=== PATIENT | female | born 1945 | race Caucasian/White ===

== ENCOUNTER 2020-01-04 13:15 | Outpatient (RCR) | payer MEDICARE, SELFPAY ==
--- NOTE | 2019-11-25 10:59 | PTOPEVAL ---
Thank you for referring this patient to [facility]. Please review, sign, date and return this plan of care KEVIN. Pt seen for initial evaluation this day due to muscle weakness and abnormal movement. She would benefit from additional skilled therapy 2x/wk x 6 wk to address noted impairments, provide skilled teaching for HEP and caregiver training. I agree with and certify that the following plan of care is medically necessary. Referring Physician Date Attending Provider: Robert Cruz MD Referring Provider: *PT Outpatient Evaluation Start: 11/25/19 09:39 Freq: Status: Active Protocol: Document 11/25/19 09:36 CAP (Rec: 11/25/19 10:37 CAP [id number]) Therapy Assessment Status Assessment Status Assessment Status Evaluation Outpatient Past Medical History Cardiovascular History Hx Other Cardiac Disorders Yes: Corotid stenosis Respiratory History Hx Bronchitis Yes Hx Pneumonia Yes Musculoskeletal History Hx Other Musculoskeletal Disorders Yes: psychogenic movement disorder Evaluation Information Problem Diagnosis weakness and abnormal movement Onset 07/06/19 Cause unknown. Additional Evaluation Detail She is not performing home exercise program due to limited tolerance with activities, decreased trunk balance. Subjective Information Jul 07 left for a trip. Pt Query Text:As Reported By Patient/ had not been feeling right Family She was vomitting. Went to Urgent Care with Dx with vertigo, then sent her to ED for treatment. She was given to be DC with antibioditic, but had a change in status of decreased responsiveness. She was in acute hospital due to change in medical status with decreased trunk control and ability to sit or stand. She was then taken [facility] for work -up. She became dependent with all activities. In [facility] for 10 day, unable to locate cause of change in medical status with multiple testing. Sent to SNF for therapy. She was then sent to [place] due to kidney infection and had change in status with repeated
--- NOTE | 2019-12-13 12:02 | PCPTNOTE ---
Patient called & cancelled scheduled appointment this date due to weather.
--- NOTE | 2019-12-21 16:06 | PTOPEVAL ---
Thank you for referring this patient to [facility]. Please review, sign, date and return this plan of care KEVIN. Pt has been seen for 7 physical therapy visits to address functional mobility impairment, muscle weakness and increased assistance with mobility and decreased safety with mobility. She demonstrates progress towards therapy goals and improved functional mobility. She requires additional skilled therapy to address impairments and improve function. Cont PT 2x/wk x 6 wk. I agree with and certify that the following plan of care is medically necessary. Referring Physician Date Attending Provider: Robert Cruz MD Referring Provider: *PT Outpatient Re-Evaluation Start: 11/25/19 09:39 Freq: Status: Active Protocol: Document 12/21/19 12:32 CAP (Rec: 12/21/19 13:28 CAP [id number]) Therapy Assessment Status Assessment Status Assessment Status Re-evaluation Outpatient Past Medical History Hx Other Musculoskeletal Disorders Yes: psychogenic movement disorder Evaluation Information Problem Diagnosis weakness and abnormal movement Onset 07/06/19 Cause unknown. Additional Evaluation Detail Jul 07 left for a trip. Pt had not been feeling right She was vomitting. Went to Urgent Care with Dx with vertigo, then sent her to ED for treatment. She was given to be DC with antibioditic, but had a change in status of decreased responsiveness. She was in acute hospital due to change in medical status with decreased trunk control and ability to sit or stand. She was then taken [facility] for work -up. She became dependent with all activities. In [facility] for 10 day, unable to locate cause of change in medical status with multiple testing. Sent to SNF for therapy. She was then sent to [place] due to kidney infection and had change in status with repeated trunk motion without cause. She cont to have a decline in functional status. Unknown cause for abnormal trunk motions with extensive testing . Pt was to be
--- NOTE | 2020-01-06 10:38 | PCPTNOTE ---
Patient called & cancelled scheduled appointment this date due to Covid 19.
--- NOTE | 2020-01-11 09:47 | PCPTNOTE ---
Patient did not show up for scheduled appointment this date.
--- NOTE | 2020-01-11 09:56 | PCPTNOTE ---
Called & had to leave a message.
--- NOTE | 2020-01-18 14:54 | PCPTNOTE ---
Patient called & cancelled scheduled appointment this date due to covid 19
--- NOTE | 2020-02-21 08:10 | PCPTNOTE ---
Admitting Provider: Attending Provider: Robert Cruz MD Patient:Sonia Quintanilla Date of :1945 Discharge Note Patient has not returned for any further treatments since 01/04/2020, therefore she will be discharged at this time. Patient?s initial visit was on 11/25/2019 09:30 and she had a total of 8 visits. Limited progress with therapy for functional mobility and compliance with a HEP or mobility activities at home. The goals have been not met. Thank you for referring this patient to [facility]. Please review, sign, date and return this discharge summary KEVIN. I have been updated about the patient's current status and I agree with discharge from the above service at this time. Referring Physician Date
== END 2020-02-21 08:44 | disposition home or self-care (01) ==
LOC: ANHPT 13:15
PROVIDERS: PCP Family Medicine; Visit Provider Family Medicine
DX: R53.1 Weakness (principal); G25.9 Extrapyramidal and movement disorder, unspecified
CPT/HCPCS: 97110; 97116; 97163; 97530

== ENCOUNTER 2020-06-29 09:28 | Outpatient (CLI) | payer MEDICARE, SELFPAY ==
--- NOTE | ~2020-06-29 | MM_ITS ---
EXAMINATION: MM screening jodie BI w paola HISTORY: Screening TECHNIQUE: Craniocaudal and mediolateral oblique 3-D tomosynthesis images were obtained and synthetic 2-D images were generated. CAD analysis was submitted and interpreted. COMPARISON: Comparison to multiple prior studies sequentially, with oldest reviewed study dated 01/09. BREAST PARENCHYMAL COMPOSITION: There are scattered areas of fibroglandular density. FINDINGS: Focal asymmetry in the upper outer quadrant of the right breast is unchanged. There are no new masses, calcifications or architectural distortion in the right breast to suggest malignancy. The re are focal asymmetries medially in the left breast which appear new. IMPRESSION: 1. Focal left breast asymmetries medially on CC view. 2. Additional mammographic views and possible breast ultrasound are recommended. BI-RADS Category 0: Incomplete: Needs additional imaging evaluation. Reviewed, dictated and finalized at location A. IMPRESSION: 1. Focal left breast asymmetries medially on CC view. 2. Additional mammographic views and possible breast ultrasound are recommended . BI-RADS Category 0: Incomplete: Needs additional imaging evaluation.
== END 2020-06-29 09:29 | disposition home or self-care (01) ==
LOC: ANHIMG 09:30
PROVIDERS: PCP Family Medicine; Visit Provider Family Medicine
DX: Z12.31 Encounter for screening mammogram for malignant neoplasm of breast (principal); R92.8 Other abnormal and inconclusive findings on diagnostic imaging of breast
CPT/HCPCS: 77063; 77067

== ENCOUNTER 2020-07-20 12:12 | Outpatient (CLI) | payer MEDICARE, SELFPAY ==
--- NOTE | ~2020-07-20 | MM_ITS ---
EXAMINATION: MM diagnostic mammo unilat LT HISTORY: Left breast asymmetry on screening mammogram TECHNIQUE: Additional 3-D tomosynthesis images of the left breast were performed and synthetic 2-D im ages were generated. CAD analysis was submitted and interpreted. COMPARISON: 06/29/2020, 01/25/2010, 01/09/2010 FINDINGS: No persistent asymmetry is identified with spot compression of the left breast. There is a return to baseline fibroglandular appearance. IMPRESSION: 1. No mammographic evidence of malignancy. 2. Recommend routine screening mammography in one year. BI-RADS Category 1: Negative Reviewed, dictated and finalized at location A.
== END 2020-07-20 12:13 | disposition home or self-care (01) ==
LOC: ANHIMG 12:14
PROVIDERS: PCP Family Medicine; Visit Provider Family Medicine
DX: R92.8 Other abnormal and inconclusive findings on diagnostic imaging of breast (principal)
CPT/HCPCS: 77065

== ENCOUNTER 2025-01-05 09:07 | Emergency (ER) | payer MEDICARE, SELFPAY ==
--- NOTE | ~2025-01-05 | XR_ITS ---
XR chest 2V Ordering provider: DIANE Navarro History: 79 years Female with . cough x3 days. Rhonchi throughout, sob . Comparison: None. FINDINGS: MEDIASTINUM: The cardiac silhouette is slightly enlarged. Bipolar pacemaker. Aortic valve prosthesis is noted. Congestive gladys. LUNGS: No effusions or pneumothorax. Prominent bronchovascular markings in the lower lobes more on th e left side is seen. Early pneumonia is not excluded. Minimal interstitial thickening in the right lung base. OTHER: No free air under the diaphragm. Degenerative changes of the spine. IMPRESSION: Cardiomegaly with congestive gladys. Prominent markings in the left lower lobe with possible early pneumonia. Follow-up advised. Underlyin g pulmonary edema cannot be excluded. Reviewed, dictated and finalized at location A. IMPRESSION: Cardiomegaly with congestive gladys. Prominent markings in the left lower lobe with possible early pneumonia. Follow -up advised. Underlying pulmonary edema cannot be excluded.
[2025-01-05 09:21] VITALS: BP 151/62; PULSE 88; RESP 18; TEMP 37.6; O2SAT 97
[2025-01-05 09:58] VITALS: PULSE 88; RESP 18; O2SAT 97
--- NOTE | 2025-01-05 10:17 | ED.URI ---
HPI - URI/Sore Throat General Chief Complaint: Upper Respiratory Infection Stated Complaint: Cough Time Seen by Provider: 01/05/25 10:10 Source: patient, family (Daughter) and RN notes reviewed Mode of arrival: ambulatory Limitations: no limitations History of Present Illness HPI Narrative: Patient presents today with daughter, complaining a 3 day history of cough, chest wall pain and tightness, sore throat, headache, shortness of breath. She also complains of a subjective fever yesterday. She has been taking Mucinex without much relief. She was exposed to strep throat 2 weeks ago and to URI symptoms in her home recently. History of bronchitis with pneumonia. Daughter states the patient was admitted to the ICU last year for pneumonia for 3 weeks. Related Data Home Medications ?Medication ?Instructions ?Recorded ?Confirmed ?Last Taken ?Type Saccharomyces boulardii 250 mg 250 mg PO BID 09/24/19 06/15/21 Unknown History capsule (Florastor) acetaminophen 325 mg tablet 325 mg PO Q6H PRN 09/24/19 06/15/21 Unknown History aspirin 81 mg tablet,delayed 81 mg PO DAILY 09/24/19 06/15/21 10/17/19 History release carvedilol 3.125 mg tablet 3.125 mg PO Q12H 09/24/19 06/15/21 Unknown History cholecalciferol (vitamin D3) 25 1,000 unit PO DAILY 09/24/19 06/15/21 Unknown History mcg (1,000 unit) capsule melatonin 1 mg tablet PO 09/24/19 06/15/21 Unknown History magnesium oxide 500 mg PO DAILY 02/15/20 06/15/21 Unknown History omeprazole 40 mg capsule,delayed 40 mg PO BID 06/15/21 06/15/21 Unknown History release levothyroxine 75 mcg tablet mcg 01/05/25 Unknown History pravastatin 40 mg tablet mg 01/05/25 Unknown History valsartan 40 mg tablet mg 01/05/25 Unknown History Allergies Allergy/AdvReac Type Severity Reaction Status Date / Time ELVIN Inhibitors Allergy Unknown Cough Verified 01/05/25 09:51 lisinopril AdvReac Unknown COUGHING Verified 01/05/25 09:51 Review of Systems Review of Systems: CONSTITUTIONAL: Denies body aches, chills, or sweats.+ subjective fever EYES: Denies visual changes, redness, or discharge. ENT: Denies rhinorrhea, congestion, or otalgia.+ sore throat CARDIOVASCULAR: Denies chest pain, palpitations, or edema. RESPIRATORY: Cough, shortness of breath, chest wall pain GASTROINTESTINAL: Denies abdominal pain, nausea, vomiting, or diarrhea. GENITOURINARY: Denies dysuria or hematuria. SKIN: Denies rash, itching, or wounds. MUSCULOSKELETAL: Denies back pain, joint pain, or myalgia. NEUROLOGIC: Denies numbness, tingling, or weakness.+ headache PSYCH: Denies depression or anxiety. [facility] Past Medical History Medical History Impaired fasting glucose Fatty liver Hx of gout Arthritis Pyelonephritis Pyelitis Hx: UTI (urinary tract infection) Ulcer History of pneumonia H/O: HTN (hypertension) Hypercholesteremia Carotid stenosis Early cataracts, bilateral Aortic stenosis Bronchitis Psychogenic movement disorder Gout Hypothyroidism HLD (hyperlipidemia) HTN (hypertension), benign Surgical History Surgical History History of hysterectomy History of tonsillectomy History of ear surgery x6 Status post hysterectomy with oophorectomy Family History Family History Father Brain cancer Social History Social History Smoking status: Never smoker Second hand tobacco smoke exposure: Yes Alcohol intake: never Substance use: never Substance use type: does not use Living arrangements: with family Occupation/Education: retired Gender identity (if verbalized by the patient): Female Comments At time of signature, I have reviewed and agree with nursing past medical, surgical, social and family history unless otherwise noted. Please see nursing chart for further information. There is no relevant family history pertinent to the presenting complaint Exam Narrative: GENERAL: Ill-appearing, well-nourished, and in no acute distress. HEAD: Normocephalic, atraumatic. EYES: EOMI. No redness or drainage. Conjunctivae normal. ENT: Mucous membranes pink and moist. Nares clear. No rhinorrhea. TMs normal bilaterally. Throat normal. Uvula midline. Hard of hearing NECK: Normal AROM. Supple. No lymphadenopathy. CHEST: No respiratory distress. Expiratory rhonchi throughout. Harsh cough noted. HEART: Regular rate and rhythm. No murmur appreciated. EXTREMITIES: Normal range of motion. No edema. SKIN: Warm, dry, no rash. Capillary refill normal. Normal skin turgor. NEURO: No focal deficits. Alert and oriented x3. Gait steady. PSYCH: Normal affect. No signs of depression or anxiety. Course Course Level of Care: Express Care Visit Vital Signs Vital signs: Vital Signs Temperature 99.7 F H 01/05/25 09:21 Pulse Rate 88 01/05/25 09:21 Respiratory Rate 18 01/05/25 09:21 Blood Pressure 151/62 H 01/05/25 09:21 Pulse Oximetry 97 01/05/25 09:21 Oxygen Delivery Room Air 01/05/25 09:21 Temperature 99.7 F H 01/05/25 09:21 Pulse Rate 88 01/05/25 09:58 Respiratory Rate 18 01/05/25 09:58 Blood Pressure 151/62 H 01/05/25 09:21 Pulse Oximetry 97 01/05/25 09:58 Oxygen Delivery Room Air 01/05/25 09:21 Reviewed MDM - URI/Sore Throat MDM Narrative Medical decision making narrative: Rapid strep negative. X-ray shows early pneumonia in the left lower lobe. Will treat with Augmentin and azithromycin. Strict ED precautions given. Anticipatory guidance given. Differential Diagnosis Differential diagnosis: Likely upper respiratory infection, viral infection, bronchitis, pharyngitis and other (Strep throat, pneumonia) Lab Data Attestation: I reviewed the patient's lab results. Lab results narrative: Rapid strep negative Labs: Lab Results 01/05/25 Range/Units 10:23 POC Grp A Strep Screen Negative (Negative) Critical Care Time Critical Care Time Critical Care Time: No Discharge Plan Discharge Clinical Impression: Pneumonia Qualifiers: Pneumonia type: due to unspecified organism Laterality: left Lung location: lower lobe of lung Qualified Code(s): J18.9 - Pneumonia, unspecified organism Patient Disposition: Home, Self-Care Condition: Stable Instructions: Antibiotic Form, Bacterial Pneumonia (DC) Additional Instructions: Your x-ray shows early pneumonia in the left lower lung area. Please take antibiotics as prescribed. Continue the Mucinex to help break up chest congestion. As discussed, if symptoms are not improving in the next 24-48 hours, please go to the ER immediately for further evaluation and treatment. Your blood pressure was elevated above 120/80 today at Urgent Care. This puts you above the threshold for follow up. Please schedule a followup visit with your personal physician as soon as possible, for further evaluation and treatment. Even blood pressure exceeding 120/80 may indicate pre-hypertension. Patient Language: Tajik Prescriptions: New azithromycin 250 mg tablet 250 mg PO DAILY Qty: 6 0RF Rx Instructions: take 500 mg today (day 1), then 250 mg daily on days 2-5. amoxicillin-pot clavulanate 875-125 mg tablet 1 tablet PO Q12H 5 Days Qty: 10 0RF No Action pravastatin 40 mg tablet levothyroxine 75 mcg tablet valsartan 40 mg tablet acetaminophen 325 mg tablet 325 mg PO Q6H PRN aspirin 81 mg tablet,delayed release (DR/EC) 81 mg PO DAILY carvedilol 3.125 mg tablet 3.125 mg PO Q12H Florastor 250 mg capsule 250 mg PO BID melatonin 1 mg tablet PO cholecalciferol (vitamin D3) 1,000 unit capsule 1,000 unit PO DAILY omeprazole 40 mg capsule,delayed release(DR/EC) 40 mg PO BID magnesium oxide 500 mg tablet 500 mg PO DAILY venlafaxine 37.5 mg tablet See Rx Instructions .ROUTE .COMPLEX Qty: 180 0RF Dose Instruction: TAKE 2 TABLETS BY MOUTH EVERY DAY Rx Instructions: TAKE 2 TABLETS BY MOUTH EVERY DAY clonazepam 0.5 mg tablet 0.5 mg PO TID Qty: 90 0RF valsartan 80 mg tablet See Rx Instructions .ROUTE .COMPLEX Qty: 90 3RF Dose Instruction: TAKE 1 TABLET BY MOUTH EVERY DAY Rx Instructions: TAKE 1 TABLET BY MOUTH EVERY DAY amlodipine 10 mg tablet 10 mg PO DAILY Qty: 90 3RF albuterol sulfate 90 mcg/actuation HFA aerosol inhaler 2 - 4 puff INHALATION Q4H PRN (Reason: shortness of breath or wheezing) Qty: 18 0RF fluticasone propionate 50 mcg/actuation spray,suspension See Rx Instructions .ROUTE .COMPLEX Qty: 48 0RF Dose Instruction: INSTILL 1 SPRAY INTO EACH NOSTRIL DAILY Rx Instructions: INSTILL 1 SPRAY INTO EACH NOSTRIL DAILY allopurinol 300 mg tablet 300 mg PO DAILY Qty: 90 2RF Follow-up/Referrals: Jyothi,La Evangelista NP [Primary Care Provider] - Time of Disposition: 10:53
[2025-01-05 10:25] LABS: EDSTREPNEGPOS1 Negative (Negative)
== END 2025-01-05 11:05 | disposition home or self-care (01) ==
PROVIDERS: Emergency Provider Nurse Practitioner; PCP Nurse Practitioner Family
DX: J18.9 Pneumonia, unspecified organism (principal); I10 Essential (primary) hypertension; E78.00 Pure hypercholesterolemia, unspecified; E03.9 Hypothyroidism, unspecified; M10.9 Gout, unspecified; I35.0 Nonrheumatic aortic (valve) stenosis; H26.9 Unspecified cataract; M19.90 Unspecified osteoarthritis, unspecified site; K76.0 Fatty (change of) liver, not elsewhere classified; R73.01 Impaired fasting glucose; Z79.82 Long term (current) use of aspirin
CPT/HCPCS: 71046; 87880; 99213; G0463

== ENCOUNTER 2025-03-01 13:05 | Emergency (ER) | payer MEDICARE, SELFPAY ==
--- NOTE | ~2025-03-01 | XR_ITS ---
XR chest 2V Ordering provider: Betty Rodas APRN History: 79 years Female with . cough . Comparison: January 05, 2025 FINDINGS: MEDIASTINUM: The cardiac silhouette is moderately enlarged. Left bipolar pacemaker. Congestive gladys. LUNGS: No infiltrates, effusions or pneumothorax. OTHER: No free air under the diaphragm. Degenerative spine. IMPRESSION: No acute cardiopulmonary pathology. Reviewed, dictated and finalized at location A.
[2025-03-01 13:13] VITALS: BP 155/69; PULSE 92; RESP 16; TEMP 36.5; O2SAT 98
--- NOTE | 2025-03-01 14:04 | ED.URI ---
HPI - URI/Sore Throat General Chief Complaint: Upper Respiratory Infection Stated Complaint: sinus congestion Source: patient Mode of arrival: ambulatory Limitations: no limitations History of Present Illness HPI Narrative: 79-year-old female with history of pneumonia and hypertension presented for complaint of cough, nasal congestion and left ear pain. Onset 1 week. Cough is nonproductive but frequent and harsh. Has not taken anything for symptoms. Denies shortness of breath, wheezing nausea vomiting, diarrhea or lethargy. She reports concern for pneumonia. Patient is taking Mucinex. Related Data Home Medications ?Medication ?Instructions ?Recorded ?Confirmed ?Last Taken ?Type Saccharomyces boulardii 250 mg 250 mg PO BID 09/24/19 03/01/25 Unknown History capsule (Florastor) acetaminophen 325 mg tablet 325 mg PO Q6H PRN fever or pain 09/24/19 03/01/25 Unknown History aspirin 81 mg tablet,delayed 81 mg PO DAILY 09/24/19 03/01/25 10/17/19 History release carvedilol 3.125 mg tablet 3.125 mg PO Q12H 09/24/19 03/01/25 Unknown History cholecalciferol (vitamin D3) 25 1,000 unit PO DAILY 09/24/19 03/01/25 Unknown History mcg (1,000 unit) capsule melatonin 1 mg tablet PO 09/24/19 06/15/21 Unknown History magnesium oxide 500 mg PO DAILY 02/15/20 03/01/25 Unknown History omeprazole 40 mg capsule,delayed 40 mg PO BID 06/15/21 03/01/25 Unknown History release levothyroxine 75 mcg tablet mcg 01/05/25 Unknown History pravastatin 40 mg tablet mg 01/05/25 Unknown History valsartan 40 mg tablet mg 01/05/25 Unknown History Allergies Allergy/AdvReac Type Severity Reaction Status Date / Time ELVIN Inhibitors Allergy Unknown Cough Verified 03/01/25 13:30 lisinopril AdvReac Unknown COUGHING Verified 03/01/25 13:30 Review of Systems Review of Systems: CONSTITUTIONAL: Denies body aches, fever, chills, or sweats. EYES: Denies visual changes, redness, or discharge. ENT: Reports rhinorrhea, congestion, denies sore throat, or otalgia. CARDIOVASCULAR: Denies chest pain, palpitations, or edema. RESPIRATORY: Reports cough, denies sob, wheezing. GASTROINTESTINAL: Denies abdominal pain, nausea, vomiting, or diarrhea. SKIN: Denies rash, itching, or wounds. NEUROLOGIC: Denies headache All systems reviewed & are unremarkable except as noted in HPI and below PMFSH Past Medical History Medical History Impaired fasting glucose Fatty liver Hx of gout Arthritis Pyelonephritis Pyelitis Hx: UTI (urinary tract infection) Ulcer History of pneumonia H/O: HTN (hypertension) Hypercholesteremia Carotid stenosis Early cataracts, bilateral Aortic stenosis Bronchitis Psychogenic movement disorder Gout Hypothyroidism HLD (hyperlipidemia) HTN (hypertension), benign Surgical History Surgical History History of hysterectomy History of tonsillectomy History of ear surgery x6 Status post hysterectomy with oophorectomy Family History Family History Father Brain cancer Social History Social History Smoking status: Never smoker Second hand tobacco smoke exposure: Yes Alcohol intake: never Substance use: never Substance use type: does not use Living arrangements: with family Occupation/Education: retired Gender identity (if verbalized by the patient): Female Comments At time of signature, I have reviewed and agree with nursing past medical, surgical, social and family history unless otherwise noted. Please see nursing chart for further information. There is no relevant family history pertinent to the presenting complaint Exam Narrative: GENERAL: mildly ill-appearing, in no acute distress. EYES: EOMI. No redness or drainage. Conjunctivae normal. ENT: Mucous membranes pink and moist. No rhinorrhea. TMs normal bilaterally; aide to left ear. Throat normal. Uvula midline. NECK: Normal AROM. Supple. CHEST: No respiratory distress. Left base with crackles otherwise clear. Frequent harsh cough noted. HEART: Regular rate and rhythm. No murmur appreciated. ABDOMEN: Soft, nontender, nondistended, normal active bowel sounds. EXTREMITIES: Normal range of motion. No edema. SKIN: Warm, dry, Capillary refill normal. Normal skin turgor. NEURO: Alert and oriented x3. Gait steady. PSYCH: Normal affect. Course Course Emergency Course: Patient is aware of diagnosis, understands and agrees to treatment plan. Anticipatory guidance given. Patient agrees to follow-up as directed and is aware of reasons to seek care at the emergency department. Portions of this record may have been created with voice recognition software Level of Care: Express Care Visit Vital Signs Vital signs: Vital Signs Temperature 97.7 F 03/01/25 13:13 Pulse Rate 92 03/01/25 13:13 Respiratory Rate 16 03/01/25 13:13 Blood Pressure 155/69 H 03/01/25 13:13 Pulse Oximetry 98 03/01/25 13:13 Oxygen Delivery Room Air 03/01/25 13:13 Temperature 97.7 F 03/01/25 13:13 Pulse Rate 92 03/01/25 13:13 Respiratory Rate 16 03/01/25 13:13 Blood Pressure 155/69 H 03/01/25 13:13 Pulse Oximetry 98 03/01/25 13:13 Oxygen Delivery Room Air 03/01/25 13:13 MDM - URI/Sore Throat MDM Narrative Medical decision making narrative: Discussed physical exam findings and x-ray. Reviewed prescriptions. Advised supportive measures and signs/symptoms to go to the ER. Pt is appropriate for outpt treatment and f/u. Differential Diagnosis Differential diagnosis: Likely upper respiratory infection, sinusitis, viral infection, bronchitis, pharyngitis and other (Angioedema, perforation, asthma, pneumonia, PE, tension pneumothorax, cardiac tamponade [place], pericarditis, pleural effusion, CHF, bronchitis, cardiac arrhythmia) Discharge Plan Discharge Clinical Impression: Bronchitis Patient Disposition: Home Condition: Stable Instructions: Antibiotic Form, Acute Bronchitis (ED) Additional Instructions: Acute bronchitis can be contagious because it is usually caused by infection with a virus or bacteria. It is usually for a few days but you can be contagious for up to one week. Take medication as directed Over the counter Recommendations: Flonase spray and Zyrtec (or Claritin/Mery) over the counter Cough syrup may cause drowsiness; avoid driving or take it at night time. Tylenol every 8 hours as needed for pain Symptomatic treatment includes: rest, fluids, and increase humidity of the air at home. Follow up with your primary care provider as needed in 1 week Go to the ER for worsening symptoms or concerns Patient Language: Ecuadorean Prescriptions: New prednisone 20 mg tablet 40 mg PO DAILY 5 Days Qty: 10 0RF amoxicillin-pot clavulanate 875-125 mg tablet 1 tablet PO Q12H 7 Days Qty: 14 0RF No Action pravastatin 40 mg tablet levothyroxine 75 mcg tablet valsartan 40 mg tablet acetaminophen 325 mg tablet 325 mg PO Q6H PRN (Reason: fever or pain) aspirin 81 mg tablet,delayed release (DR/EC) 81 mg PO DAILY carvedilol 3.125 mg tablet 3.125 mg PO Q12H Florastor 250 mg capsule 250 mg PO BID melatonin 1 mg tablet PO cholecalciferol (vitamin D3) 1,000 unit capsule 1,000 unit PO DAILY omeprazole 40 mg capsule,delayed release(DR/EC) 40 mg PO BID magnesium oxide 500 mg tablet 500 mg PO DAILY venlafaxine 37.5 mg tablet See Rx Instructions .ROUTE .COMPLEX Qty: 180 0RF Dose Instruction: TAKE 2 TABLETS BY MOUTH EVERY DAY Rx Instructions: TAKE 2 TABLETS BY MOUTH EVERY DAY clonazepam 0.5 mg tablet 0.5 mg PO TID Qty: 90 0RF valsartan 80 mg tablet See Rx Instructions .ROUTE .COMPLEX Qty: 90 3RF Dose Instruction: TAKE 1 TABLET BY MOUTH EVERY DAY Rx Instructions: TAKE 1 TABLET BY MOUTH EVERY DAY amlodipine 10 mg tablet 10 mg PO DAILY Qty: 90 3RF albuterol sulfate 90 mcg/actuation HFA aerosol inhaler 2 - 4 puff INHALATION Q4H PRN (Reason: shortness of breath or wheezing) Qty: 18 0RF fluticasone propionate 50 mcg/actuation spray,suspension See Rx Instructions .ROUTE .COMPLEX Qty: 48 0RF Dose Instruction: INSTILL 1 SPRAY INTO EACH NOSTRIL DAILY Rx Instructions: INSTILL 1 SPRAY INTO EACH NOSTRIL DAILY allopurinol 300 mg tablet 300 mg PO DAILY Qty: 90 2RF Follow-up/Referrals: UNKNOWN,DOCTOR [Primary Care Provider] -
== END 2025-03-01 14:15 | disposition home or self-care (01) ==
PROVIDERS: Emergency Provider Nurse Practitioner Family
DX: J40 Bronchitis, not specified as acute or chronic (principal); K76.0 Fatty (change of) liver, not elsewhere classified; M10.9 Gout, unspecified; M19.90 Unspecified osteoarthritis, unspecified site; I10 Essential (primary) hypertension; E78.00 Pure hypercholesterolemia, unspecified; I35.0 Nonrheumatic aortic (valve) stenosis; E03.9 Hypothyroidism, unspecified; R73.01 Impaired fasting glucose; Z79.82 Long term (current) use of aspirin
CPT/HCPCS: 71046; 99213; G0463

== ENCOUNTER 2025-06-05 17:40 | Inpatient (IN) | payer MEDICARE, SELFPAY ==
--- NOTE | ~2025-06-05 | XR_ITS ---
HISTORY: fall COMPARISON: Reference is made to a plain film evaluation of the chest performed 03/01/2025 TECHNIQUE: 2 views of the left clavicle were performed. FINDINGS: No acute or subacute fracture within the left clavicle. Acute fracture within the left humeral neck with medial dislocation of the humeral head with overlap of the fracture fragment. Left subclavian pacemaker identified. Diffuse bony demineralization within both the humeral head and the acromion on as well as within the lateral margin of the clavicle. IMPRESSION: Acute fracture within the humerus, without additional fracture deformity identified. Reviewed, dictated and finalized at location A. IMPRESSION: Acute fracture within the humerus, without additional fracture deformity identi fied.
--- NOTE | ~2025-06-05 | XR_ITS ---
HISTORY: fall with deformity COMPARISON: None TECHNIQUE: 3 views of the left shoulder were performed. FINDINGS: Acute comminuted fracture of the left humeral neck is identified with significant overlap of the frac ture fragments. No additional fracture deformity is appreciated. The visualized portion of the adjacent left lung is clear. IMPRESSION: Acute comminuted fracture of the left humeral neck with overlap of the fracture fragments. Reviewed, dictated and finalized at location A.
--- NOTE | ~2025-06-05 | XR_ITS ---
EXAMINATION: XR chest 1V portable 06/06/2025 14:13 INDICATION: Soreness of breath COMPARISON: 03/01/2025 FINDINGS: Mediastinal silhouette is moderately enlarged. No pneumothorax. No pleural effusion. No free air diap hragm. Left-sided generator leads. Stent projects over the mediastinum. Interstitial opacities in both lungs. Possible small right-sided pleural effusion versus pleural scarring. IMPRESSION: 1: Interstitial opacities in both lungs. Differential includes chronic interstitial changes, interst itial edema or interstitial pneumonia. 2. Possible small right-sided pleural effusion versus pleural scarring. 3. Mildly displaced and comminuted acute/subacute fracture of the left humeral neck. Correlate clinic ally. Reviewed, dictated and finalized at location A. IMPRESSION: 1: Interstitial opacities in both lungs. Differential includes chronic interst itial changes, interstitial edema or interstitial pneumonia. 2. Possible small right-sided pleural effusion versus pleural scarring. 3. Mildly displaced and comminuted acute/subacute fracture of the left humeral neck. Correlate clinically.
--- NOTE | ~2025-06-05 | XR_ITS ---
EXAMINATION: XR shoulder LT min 2V DATE: 06/15/2025 16:06 INDICATION: Proximal left humeral fracture TECHNIQUE: AP and transscapular Y views of the left shoulder were obtained. COMPARISON: Radiograph dated 06/05/2025 FINDINGS: Oblique fracture at the surgical neck of the proximal left humerus with significant decrease in the prior varus angulation. There is however increased 1.5 cm anteromedial displacement of the main distal fragment. Fracture is mildly comminuted with additional small fracture fragment along the medial side of the fracture plane. No evident productive changes of healing yet apparent. The humeral head remains normally centered over the glenoid. Old anterior left fifth rib fracture. No other fractures identified. Postoperative change of prior aortic valve repair. Cardiac pacemaker leads extend from a left pectoral pacemaker through the right cephalic vein into the cephalad superior vena cava and beyond the margins of the field of imaging. Calcified AP window lymph node consistent with old granulomatous disease. Moderate acromioclavicular osteoarthritis. IMPRESSION: Mildly comminuted two-part fracture at the surgical neck of the proximal left humerus with 1.5 cm anteromedial displacement and interval decrease in varus angulation. Reviewed, dictated and finalized at location A. IMPRESSION: Mildly comminuted two-part fracture at the surgical neck of the proximal left h umerus with 1.5 cm anteromedial displacement and interval decrease in varus ang ulation.
[2025-06-05] MEDS: MORPHINE SULFATE (*CRX) 4 MG/ML INJ IV PUSH (18:21)
[2025-06-05] MEDS: ONDANSETRON INJ 4 MG/2 ML VIAL IV PUSH (18:21)
--- NOTE | 2025-06-05 19:30 | PC.NURSE ---
Report received from BELLA Das. Assumed care of patient at this time.
--- NOTE | 2025-06-05 19:33 | ED.FALL ---
HPI - Fall General Chief Complaint: Fall Stated Complaint: glf, L shoulder pain Time Seen by Provider: 06/05/25 19:00 History of Present Illness HPI Narrative: 79-year-old female with history of pacemaker, hypertension, hyperlipidemia. She presents to the emergency department after mechanical fall with left shoulder trauma. She states she tripped over her cane while trying to walk in the house abruptly. She landed on her left shoulder but did not hit her head or lose consciousness. She had an obvious deformity to her left shoulder any EMS provided her fentanyl EN route via an IV. Patient is uncomfortable appearing. Patient is complaining of shoulder pain radiating into her left clavicular area. No trouble breathing or nausea, vomiting. No mental status changes otherwise. Patient has otherwise been in her normal state of health. Patient denies any other injuries. States she uses a cane and sometimes ambulate on unsteady services but normally walks around the house without any assistance. Family member present at bedside for collateral formation witnessed the fall and corroborates patient's story. Related Data Home Medications ?Medication ?Instructions ?Recorded ?Confirmed ?Last Taken ?Type Saccharomyces boulardii 250 mg 250 mg PO BID 09/24/19 06/06/25 Unknown History capsule (Florastor) acetaminophen 325 mg tablet 325 mg PO Q6H PRN fever or pain 09/24/19 06/06/25 Unknown History aspirin 81 mg tablet,delayed 81 mg PO DAILY 09/24/19 06/06/25 06/04/25 21:00 History release 81 mg carvedilol 3.125 mg tablet 3.125 mg PO Q12H 09/24/19 06/06/25 06/04/25 21:00 History 3.125 mg cholecalciferol (vitamin D3) 25 1,000 unit PO DAILY 09/24/19 06/06/25 06/05/25 09:22 History mcg (1,000 unit) capsule 1,000 unit melatonin 1 mg tablet PO 09/24/19 06/15/21 Unknown History magnesium oxide 500 mg PO DAILY 02/15/20 06/06/25 Unknown History omeprazole 40 mg capsule,delayed 40 mg PO BID 06/15/21 06/06/25 Unknown History release levothyroxine 75 mcg tablet 75 mcg PO DAILY 01/05/25 06/06/25 06/05/25 History pravastatin 40 mg tablet 40 mg PO .nightly 01/05/25 06/06/25 06/04/25 History valsartan 40 mg tablet 40 mg PO DAILY 01/05/25 06/06/25 06/05/25 09:00 History Allergies Allergy/AdvReac Type Severity Reaction Status Date / Time ELVIN Inhibitors Allergy Unknown Cough Verified 06/06/25 00:10 lisinopril AdvReac Unknown COUGHING Verified 06/06/25 00:10 Review of Systems Review of Systems: As reviewed above in [facility] Past Medical History Medical History Impaired fasting glucose Fatty liver Hx of gout Arthritis Pyelonephritis Pyelitis Hx: UTI (urinary tract infection) Ulcer History of pneumonia H/O: HTN (hypertension) Hypercholesteremia Carotid stenosis Early cataracts, bilateral Aortic stenosis Bronchitis Psychogenic movement disorder Gout Hypothyroidism HLD (hyperlipidemia) HTN (hypertension), benign Surgical History Surgical History History of hysterectomy History of tonsillectomy History of ear surgery x6 Status post hysterectomy with oophorectomy Family History Family History Father Brain cancer Social History Social History Smoking status: Never smoker Second hand tobacco smoke exposure: Yes Alcohol intake: never Substance use: never Substance use type: does not use Lack of Transportation: No Lack of Food: Never True Current Housing: I Have Housing Concerned About Future Housing: No Difficulty Paying Gas/Electric Bills: No Difficulty Paying for Meds: No Currently Unemployed: No Education: High School Diploma/GED Difficulty w/ Childcare or Family Care: No Living arrangements: with family Occupation/Education: retired Gender identity (if verbalized by the patient): Female Spiritual care concerns: No Exam Narrative: GENERAL: [Well-appearing, well-nourished, and in no acute distress.] HEAD: [Normocephalic, atraumatic.] EYES: [PERRLA and EOMI.] ENT: Nares clear, no rhinorrhea or epistaxis. Mucous membranes moist. NECK: Supple. CHEST: [Clear to auscultation. No respiratory distress.] HEART: [Regular rate and rhythm]. No murmur heard. [Normal peripheral pulses.] ABDOMEN: [Soft, nondistended], [nontender], [No rigidity or guarding] EXTREMITIES: Deformity noted to left proximal humeral region without any skin tenting or overlying skin changes such as bruising or bleeding. No laceration. Distal neuro vasculature is intact 2+ pulses, master deputy sheriff court security strength 5/5, full range of motion at the elbow and wrist. No sensory changes. SKIN: Warm, dry, no rash. NEURO: [No focal deficits]. Alert and oriented [x3.] PSYCH: [Normal mood and affect.] Course Vital Signs Vital signs: Vital Signs Temperature 36.6 C 06/05/25 20:33 Pulse Rate 69 06/05/25 20:33 Respiratory Rate 18 06/05/25 20:33 Blood Pressure 154/62 H 06/05/25 20:33 Pulse Oximetry 96 06/05/25 20:33 Temperature 36.6 C 06/06/25 06:00 Pulse Rate 72 06/06/25 06:00 Respiratory Rate 18 06/06/25 06:00 Blood Pressure 138/61 06/06/25 06:00 Pulse Oximetry 97 06/06/25 06:00 Oxygen Delivery Nasal Cannula 06/06/25 00:47 Oxygen Flow Rate 3 06/06/25 00:47 MDM - Fall MDM Narrative Medical decision making narrative: 79-year-old female with history of pacemaker, hypertension, hyperlipidemia. She presents to the emergency department after mechanical fall with left shoulder trauma. She states she tripped over her cane while trying to walk in the house abruptly. She landed on her left shoulder but did not hit her head or lose consciousness. She had an obvious deformity to her left shoulder any EMS provided her fentanyl EN route via an IV. Patient is uncomfortable appearing. Patient is complaining of shoulder pain radiating into her left clavicular area. No trouble breathing or nausea, vomiting. No mental status changes otherwise. Patient has otherwise been in her normal state of health. Patient denies any other injuries. States she uses a cane and sometimes ambulate on unsteady services but normally walks around the house without any assistance. Family member present at bedside for collateral formation witnessed the fall and corroborates patient's story. Deformity noted to left proximal humeral region without any skin tenting or overlying skin changes such as bruising or bleeding. No laceration. Distal neuro vasculature is intact 2+ pulses, master deputy sheriff court security strength 5/5, full range of motion at the elbow and wrist. No sensory changes. Patient is not any acute distress, intact pulses, warm extremity. Most likely proximal humeral fracture. Possible component of fracture displacement but low suspicion dislocation given mechanism of injury and exam findings. X-rays the clavicular area and shoulder were obtained which confirm proximal humeral fracture with some overlying fragments. Shoulder immobilization for better anatomic alignment and pain control. Discussed the case with Dr. Sosa regarding inpatient versus outpatient management depending on level of pain control. Patient is requiring additional medication doses including morphine and IV Caldolor but will be re-evaluated for analgesic effect prior to final disposition. Family is comfortable with her going home given her new injury and are there with her at the household to take care of her, but if pain is not tolerable then she will be brought into the hospital. Patient re-evaluated and did require additional pain medications. She tolerated the shoulder immobilizer and had better anatomic alignment on clinical exam. Pain is better controlled but not totally gone. I spoke to the hospitalist and patient was accepted for an observation admission for pain control and Orthopedics. Family comfortable with the plan and patient admitted this time. Medical Records Attestation: I reviewed the patient's medical records. Lab Data Attestation: I reviewed the patient's lab results. 06/05/25 21:13 06/05/25 21:13 Labs: Lab Results 06/05/25 06/05/25 Range/Units 21:13 21:48 WBC 14.7 H (4.5-10.0) K/mm3 RBC 4.03 L (4.2-5.4) M/mm3 Hgb 12.6 (12.0-15.0) g/dL Hct 36.5 L (37.0-47.0) % MCV 90.6 (80-100) fl MCH 31.3 (26-34) pg MCHC 34.5 (32-36) g/dl RDW 12.7 (11.5-14.5) % Plt Count 203 (150-375) k/mm3 MPV 10.1 (7.4-10.4) fl Immature Gran % (Auto) 0.5 (0-0.5) % Neut % (Auto) 86.0 H (45.5-73.1) % Lymph % (Auto) 7.8 L (18.3-44.2) % [place] % (Auto) 4.4 (2.6-8.5) % Eos % (Auto) 1.0 (0-4.4) % Baso % (Auto) 0.3 (0.2-1.2) % Lymph # (Auto) 1.15 (0.9-3.2) K/mm3 [place] # (Auto) 0.7 H (0.1-0.6) K/mm3 Eos # (Auto) 0.1 (0-0.3) K/mm3 Baso # (Auto) 0.1 (0.0-0.1) K/mm3 Abs Immat Gran (auto) 0.08 H (0.00-0.031) K/mm3 Absolute Neuts (auto) 12.6 H (1.3-6.7) K/mm3 Absolute Nucleated RBC 0.000 (0.0-0.012) K/mm3 Nucleated RBC % 0.0 (0.0-0.2) % PT 13.3 (11.1-14.7) Seconds INR 1.0 APTT 32.1 (22.3-36.8) Seconds Sodium 134 L (137-145) mmol/L Potassium 4.0 (3.4-5.0) mmol/L Chloride 100 (98-107) mmol/L Carbon Dioxide 26 (22-30) mmol/L Anion Gap 8 (4-12) mmol/L BUN 17 (7-17) mg/dL Creatinine 0.76 (0.7-1.0) mg/dL Estim Creat Clear Calc Not Reportable Estimated GFR > 60 (59 - ) Glucose 145 H (65-110) mg/dL Calcium 8.3 L (8.4-10.2) mg/dL Magnesium 2.0 (1.6-2.3) mg/dL Total Bilirubin 0.5 (0.2-1.3) mg/dL AST 27 (14-36) U/L ALT 18 (6-35) U/L Alkaline Phosphatase 98 (38-126) U/L Total Protein 7.3 (6.3-8.2) g/dL Albumin 4.1 (3.5-5.1) g/dL Blood Type O Negative Antibody Screen Negative Imaging Data Attestation: I personally reviewed and interpreted this imaging study as follows: My impression: Impressions Clavicle X-Ray 06/05/25 19:14 IMPRESSION: Acute fracture within the humerus, without additional fracture deformity identified. Shoulder X-Ray 06/05/25 19:18 IMPRESSION: Acute comminuted fracture of the left humeral neck with overlap of the fracture fragments. Discharge Plan Discharge Clinical Impression: Fracture of proximal end of humerus Patient Disposition: Still a Patient Condition: Stable
[2025-06-05] MEDS: IBUPROFEN IV 800 MG/200 ML 800 MG/200 ML BAG 400 MG IVPB (19:41)
--- OUTSIDE RECORDS SUMMARY | 2025-06-05 20:12 | XMS_ITS | Patient Health Record ---
Author Organization [facility] [employer] Address [address] [place] [address] Care Team Providers Care Winch Runner Name Role Phone Brian Aguirre Unavailable [phone] Reason For Referral No Information Medications Medication SIG (Take, Route, Frequency, Duration) Notes Start Date End Date Status clonazePAM 0.5 MG Oral 12/31/2021 A ctive Linzess 290 MCG Oral 12/31/2021 Act zoila ProAir HFA 108 (90 Base) MCG/ACT Inhalation 12/31/2021 Active Magnesium *Pick strength-f orm from [facility] for eRX* 12/31/2021 Active DULoxetine HCl 60 MG Oral 12/31/2021 Active PEG 3350-KCl-Na Bicarb-NaCl 420 GM Oral 12/31/2021 Active Lactulose 10 GM/15ML Oral 12/31/2021 Active Pravastatin Sodium 40 MG Oral 12/31/2021 Active Fluticasone Propionate Diskus 50 MCG/ACT Inhalation *[facility] and Interaction Alerts* 12/31/2021 Active Levothyroxine Sodium 50 MCG Oral 12/31/2021 Active amLODIPine Besylate 10 MG Oral 12/31/2021 Active Valsartan 160 MG Oral 12/31/2021 Ac tive GaviLyte-G 236 GM Oral *[facility] for eRx and Interaction Alerts* 12/31/2021 Active MELATONIN 3 MG CAPSULE *Reorder from [facility] for eRx and Interaction Alerts* 12/31/2021 Active Allopurinol 300 MG Oral 12/31/2021 Active Carvedilol 3.125 MG Oral 12/31/2021 Active Pravastatin Sodium 20 MG Oral 12/31/2021 Active Immunizations Vaccine Route Administration Date Status Comme nts Influenza virus vaccine, quadrivalent (IIV4), split virus, 0.25 mL dosage Unknown 08/08/2019 Administered Plan Of Treatment No Information Insurance Providers Payer Name Payer Address Payer Phone Subscriber Number Group Number Insured Name Patient Relationship to Insured Coverage Start Date Coverage End Date [employer] [address] [place] [phone] [id number] FAHAD TORREZ Self - patient is the insured Medical (General) History Surgical History Surgery Date(Month/Year) Hysterectomy/revise vagina (94221)
--- OUTSIDE RECORDS SUMMARY | 2025-06-05 20:12 | XMS_ITS | Encounter Summary ---
Author Organization [facility] Address [address] [place] [address] Care Team Providers Care Financial Rep Name Role Phone Wander Peralta MD, Robert Unavailable [phone] Jennifer Mtz ANP- Unavailable [phone] La Roe [employer] Primary Care Provider [phone] Artie Diaz MD Unavailable Encounter Details Date Type Department Care Team (Latest Contact Info) Description 05/16/2025 Results Follow-Up [facility] [address] [id number] Mare Christianson, RN Complete PFT (pre/post Man, Lung Vol, Diff Capacity) ([id number], [id number], [id number]) Social History Tobacco Use Types Packs/Day Years Used Date Smoking Tobacco: Never Smokeless Tobacco: Never Alcohol Use Standard Drinks/Week Comments No 0 (1 standard drink = 0.6 oz pur e alcohol) OASIS D0700: Social Isolation Answer Da te Recorded Frequency of experiencing loneliness or isolatio n Sometimes 2024 OASIS A1250: Transportation Answer Date Recorded Lack of Transportation (Medical) No 2024 Lack of Transportation (Non-Medical) No 2024 Patient Unable or Declines to Respond No 2024 OASIS B1300: Health Literacy Answer Jose e Recorded Frequency of needing help to read materials from doctor or pharmacy Rarely 2024 B1300 Health Literacy Answer Date Recor ded How often do you need to hav e someone help you when you read instructions, pamphlets, or other written material from your doctor or pharmacy? Never 08/03/2024 [facility] Utilities Answer Date Recorded In the past 12 months has th e [employer], gas, oil, or water company threatened to shut off services in your home? No 08/03/2024 Humiliation, Afraid, Rape, and Kick questionnair e Answer Date Recorded Within the last year, have y ou been afraid of your partner or ex-partner? No 08/03/2024 Within the last year, have y ou been humiliated or emotionally abused in other ways by your partner or ex-partner? No Within the last year, have y ou been kicked, hit, slapped, or otherwise physically hurt by your partner or ex-partner? No 08/03/2024 Within the last year, have y ou been raped or forced to have any kind of sexual activity by your partner or ex-partner? No 08/03/2024 Social Connection and Isolat ion Panel [NHANES] Answer Date Recorded In a typical week, how many times do you talk on the phone with family, friends, or neighbors? More than three times a week 08/03/2024 How often do you get togethe r with friends or relatives? Three times a week 08/03/2024 How often do you attend chur or congregation services? 1 to 4 times per year 08/03/2024 Do you belong to any clubs o r organizations such as sabianism groups, unions, fraternal or athletic groups, or school groups? No 08/03/2024 How often do you attend meet ings of the clubs or organizations you belong to? Never 08/03/2024 Are you , , di vorced, , never , or living with a partner? 08/03/2024 AUDIT-C Answer Date Recorded Q1: How often do you have a drink containing alcohol? Never 08/03/2024 Q2: How many drinks containi ng alcohol do you have on a typical day when you are drinking? Patient does not drink Q3: How often do you have si x or more drinks on one occasion? Never 08/03/2024 Overall Financial Resource Strain (CARDIA) Answe r Date Recorded How hard is it for you to pa y for the very basics like food, housing, medical care, and heating? Not hard at all 08/03/2024 PHQ-2 Answer Date Recorded Patient Health Questionnaire-2 Score 1 11/11/2024 [facility] - Occupational Stress Questionnaire Answer Date Recorded Do you feel stress - tense, restless, nervous, or anxious, or unable to sleep at night because your mind is troubled all the time - these days? Only a little 08/03/2024 Exercise Vital Sign Answer Date Recorde d On average, how many days pe r week do you engage in moderate to strenuous exercise (like a brisk walk)? 0 days 08/03/2024 On average, how many minutes do you engage in exercise at this level? 0 min 08/03/2024 Hunger Vital Sign Answer Date Recorded Within the past 12 months, y ou worried that your food would run out before you got the money to buy more. Never true 08/03/20 24 Within the past 12 months, t he food you bought just didn't last and you didn't have money to get more. Never true 08/03/2024 PRAPARE - Transportation Answer Date Re corded In the past 12 months, has l ack of transportation kept you from medical appointments or from getting medications? No 07/20 In the past 12 months, has l ack of transportation kept you from meetings, work, or from getting things needed for daily living? No 08/03/2024 Housing Stability Vital Sign Answer Jose e Recorded In the last 12 months, was t here a time when you were not able to pay the mortgage or rent on time? No 09/03/2023 In the last 12 months, how many places have you lived? 1 09/03/2023 In the last 12 months, was t here a time when you did not have a steady place to sleep or slept in a detention (including now)? No 09/03/2023 Housing Stability Vital Sign Answer Jose e Recorded In the last 12 months, was t here a time when you were not able to pay the mortgage or rent on time? No 08/03/2024 In the past 12 months, how m any times have you moved where you were living? 0 08/03/2024 At any time in the past [address] [facility], were you homeless or living in a detention (including now)? No 08/03/2024 Comments No Sex and Gender Information Value Date Recorded Sex Assigned at Female 08/03/2024 4:24 PM CDT Legal Sex Female 7:54 AM CDT Gender Identity Female 08/03/2024 4:24 PM CDT Sexual Orientation Straight 08/03/2024 4: 24 PM CDT documented as of this encounter Functional Status * Are you deaf or do you have serious difficulty hearing Answer Date of Assessment Author Status Yes 08/03/2024 4:39 PM CDT Brunilda Carrillo RN Active * Are you blind or do you have serious difficulty seeing, even when wearing glasses? Answer Date of Assessment Author Status No 08/03/2024 4:39 PM GRISELT Brunilda Carrillo RN Active * Do you have serious difficulty walking or climbing stairs? Answer Date of Assessment Author Status Yes 08/03/2024 4:39 PM CDT Brunilda Carrillo RN Active * Do you have difficulty dressing or bathing? Answer Date of Assessment Author Status Yes 08/03/2024 4:39 PM CDT Brunilda Carrillo RN Active * Because of a physical, mental, or emotional condition, do you have difficulty doing errands alone such as visiting a doctor's office or shopping? Answer Date of Assessment Author Status No 08/03/2024 4:39 PM GRISELT Brunilda Carrillo RN Active documented as of this encounter Mental Status * Because of a physical, mental, or emotional condition, do you have serious difficulty concentrating, remembering, or making decisions? Answer Entry Date Author Status No 08/03/2024 4:39 PM GRISELT Brunilda Carrillo RN Active documented in this encounter Plan of Treatment Upcoming Encounters Date Type Department Care Team (Late st Contact Info) Description 06/06/2025 2:40 PM CDT Allied Health/Nurse Visit [facility], [address] [address] Artie Diaz MD Three [facility]. [address] [place] [address] 06/09/2025 3:20 PM CDT Office Visit [facility] [address] [place] [address] La Roe FNP [address] [place] [address] 10/10/2025 10:00 AM CONTENT CREATION MANAGER Appointment [facility] Ultrasound [address] [place] [address] Tesha Kapoor PA [address] [facility], [address] [place] [address] 10/28/2025 12:15 PM CONTENT CREATION MANAGER [facility] [address] [place] [phone] Dereck Ratliff MD Three [facility]. [address] [place] [address] documented as of this encounter Visit Diagnoses Not on filedocumented in this encounter Additional Health Concerns Assessment Noted Time PHQ-9 Depression Total Score: 0 12/04/19 22 2:43 PM CONTENT CREATION MANAGER documented as of this encounter Care Teams Financial Rep Relationship Specialty Start Date End Date La Roe FNP [address] [place] [address] PCP - General Nurse Practitioner Family 05/19/24 Giuseppe Viramontes MD CARDIOVASCULAR DISEASE 02/10/17 Jennifer Mtz, ANP- [address] [facility] [address] [place] [address] NURSE PRACTITIONER 02/10/[address] [facility] [address] [place] [address] Consulting Physician CLINICAL CARDIAC ELECTROPHYSIOLOGY 08/17/24 documented as of this encounter
--- OUTSIDE RECORDS SUMMARY | 2025-06-05 20:12 | XMS_ITS | Encounter Summary ---
Author Organization [facility] Address [address] [place] [address] Care Team Providers Care Final Cleaner Name Role Phone Wander Peralta MD, Giuseppe Unavailable [phone] Jennifer Mtz [facility]- Unavailable [phone] Martha Dias [facility] Primary Care Provider Unav ailable Anabel Escobar RN Unavailable [phone] Leeanna Moralez RN Unavailable [phone] La Roe [facility] Primary Care Provider [phone] Leeanna Moralez RN Unavailable [phone] Artie Diaz MD Unavailable Leeanna Moralez RN Unavailable [phone] Leeanna Moralez RN Unavailable [phone] Encounter Details Date Type Department Care Team (Late st Contact Info) Description 05/18/2023 [facility] [place] [address] Marlin Douglas MD [address] [place] [phone] (Work) Social History Tobacco Use Types Packs/Day Years Used Date Smoking Tobacco: Never Smokeless Tobacco: Never Alcohol Use Standard Drinks/Week Comments No 0 (1 standard drink = 0.6 oz pur e alcohol) Humiliation, Afraid, Rape, and Kick questionnair e Answer Date Recorded Within the last year, have y ou been afraid of your partner or ex-partner? No 05/12/2023 Within the last year, have y ou been humiliated or emotionally abused in other ways by your partner or ex-partner? No Within the last year, have y ou been kicked, hit, slapped, or otherwise physically hurt by your partner or ex-partner? No 05/12/2023 Within the last year, have y ou been raped or forced to have any kind of sexual activity by your partner or ex-partner? No 05/12/2023 Social Connection and Isolat ion Panel [NHANES] Answer Date Recorded In a typical week, how many times do you talk on the phone with family, friends, or neighbors? More than three times a week 05/12/2023 How often do you get togethe r with friends or relatives? Once a week 05/12/2023 How often do you attend chur or christianity services? Never 05/12/2023 Do you belong to any clubs o r organizations such as advent groups, unions, fraternal or athletic groups, or school groups? No 05/12/2023 How often do you attend meet ings of the clubs or organizations you belong to? Never 05/12/2023 Are you , , di vorced, , never , or living with a partner? 05/12/2023 AUDIT-C Answer Date Recorded Q1: How often do you have a drink containing alcohol? Never 05/12/2023 Q2: How many drinks containi ng alcohol do you have on a typical day when you are drinking? Patient does not drink Q3: How often do you have si x or more drinks on one occasion? Never 05/12/2023 Overall Financial Resource Strain (CARDIA) Answe r Date Recorded How hard is it for you to pa y for the very basics like food, housing, medical care, and heating? Not hard at all 05/12/2023 PHQ-2 Answer Date Recorded Patient Health Questionnaire-2 Score 0 02/17/2023 [facility] - Occupational Stress Questionnaire Answer Date Recorded Do you feel stress - tense, restless, nervous, or anxious, or unable to sleep at night because your mind is troubled all the time - these days? To some extent 05/12/2023 Hunger Vital Sign Answer Date Recorded Within the past 12 months, y ou worried that your food would run out before you got the money to buy more. Never true 05/12/20 23 Within the past 12 months, t he food you bought just didn't last and you didn't have money to get more. Never true 05/12/2023 PRAPARE - Transportation Answer Date Re corded In the past 12 months, has l ack of transportation kept you from medical appointments or from getting medications? No 04/20 In the past 12 months, has l ack of transportation kept you from meetings, work, or from getting things needed for daily living? No 05/12/2023 Housing Stability Vital Sign Answer Jose e Recorded In the last 12 months, was t here a time when you were not able to pay the mortgage or rent on time? No 05/12/2023 In the last 12 months, how many places have you lived? 1 05/12/2023 In the last 12 months, was t here a time when you did not have a steady place to sleep or slept in a halfway (including now)? No 05/12/2023 Comments No Sex and Gender Information Value Date Recorded Sex Assigned at Female 08/03/2024 4:24 PM CDT Legal Sex Female 7:54 AM CDT Gender Identity Female 08/03/2024 4:24 PM CDT Sexual Orientation Straight 08/03/2024 4: 24 PM CDT documented as of this encounter Functional Status * Question Answer Date of Assessment Author Status Do you have serious difficulty walking or climbing stairs? No 05/18/2023 1:45 AM CDT Regla Mays RN Active * Question Answer Date of Assessment Author Status Do you have difficulty dressing or bathing? Yes 05/18/2023 1:45 AM CDT Melani Mays RN Active Because of a physical, mental, or emotional condition, do you have difficulty doing errands alone such as visiting a doctor's office or shopping? No 05/18/2023 1:45 AM Regla Santillan RN Active * Are you deaf or do you have serious difficulty hearing Answer Date of Assessment Author Status Yes 05/18/2023 1:45 AM Yuridia Santillan RN Active * Are you blind or do you have serious difficulty seeing, even when wearing glasses? Answer Date of Assessment Author Status No 05/18/2023 1:45 AM Yuriida Santillan RN Active * Do you have serious difficulty walking or climbing stairs? Answer Date of Assessment Author Status No 05/18/2023 1:45 AM Yuridia Santillan RN Active * Do you have difficulty dressing or bathing? Answer Date of Assessment Author Status Yes 05/18/2023 1:45 AM Yuridia Santillan RN Active * Because of a physical, mental, or emotional condition, do you have difficulty doing errands alone such as visiting a doctor's office or shopping? Answer Date of Assessment Author Status No 05/18/2023 1:45 AM Yuridia Santillan RN Active * Question Answer Date of Assessment Author Status Are you deaf or do you have serious difficulty hearing Yes 05/18/2023 1:45 AM Regla Santillan RN Active Are you blind or do you have serious difficulty seeing, even when wearing glasses? No 05/18/2023 1:45 AM Regla Santillan RN Active * Calculated C-SSRS Risk Score (Lifetime/Recent) Answer Date of Assessment Author Status No Risk Indicated 05/18/2023 1:48 AM Garrett Santillan RN Active * [place] Suicide Severity Rating Scale (Screener/Recent Self-Report) Question Answer Date of Assessment Author Status 1. Wish to be (Past 1 Month) No 05/18/2023 1:48 AM Regla Santillan RN Active 2. Non-Specific Active Suicidal Thoughts (Past 1 Month) No 05/18/2023 1:48 AM Regla Santillan RN Active 6. Suicidal Behavior (Lifetime) No 05/18/2023 1:48 AM Regla Santillan RN Active documented as of this encounter Mental Status * Question Answer Entry Date Author Status Because of a physical, mental, or emotional condition, do you have serious difficulty concentrating, remembering, or making decisions? No 05/18/2023 1:45 AM CDT Cheryl Mays RN Active * Because of a physical, mental, or emotional condition, do you have serious difficulty concentrating, remembering, or making decisions? Answer Entry Date Author Status No 05/18/2023 1:45 AM CDT Yuridia Mays RN Active documented in this encounter Plan of Treatment Upcoming Encounters Date Type Department Care Team (Late st Contact Info) Description 06/06/2025 2:40 PM CDT Allied Health/Nurse Visit [facility] THREE [facility], [address] [place] [address] Artie Diaz MD Three [facility]. [facility] [address] [place] [address] 06/09/2025 3:20 PM CDT Office Visit [address] [address] La [address]oe [address] [place] [address] 10/10/2025 10:00 AM RAILROAD ACCOUNTANT Appointment [facility] [address] [place] [address] Tesha Kapoor PA [address] [facility] [place] [address] 10/28/2025 12:15 PM RAILROAD ACCOUNTANT Office Visit [facility] [address] [place] [phone] Dereck Ratliff MD Three [facility]. [facility] [address] [place] [address] documented as of this encounter Visit Diagnoses Not on filedocumented in this encounter Additional Health Concerns Infection Onset Date Last Indicated Resolved Time COVID-19 Rule Out 08/13/2023 08/13/2023 08/13/2023 11:34 AM CDT COVID-19 Confirmed 08/13/2023 08/13/2023 8:24 AM RAILROAD ACCOUNTANT COVID-19 Rule Out 07/19/2024 07/19/2024 07/19/2024 11:11 AM CDT COVID-19 Rule Out 07/20/2024 07/20/2024 07/20/2024 4:23 AM CDT Rhinovirus 07/20/2024 07/20/2024 07/30/2024 12:3 2 AM CDT Assessment Noted Time PHQ-9 Depression Total Score: 0 12/04/19 22 2:43 PM RAILROAD ACCOUNTANT documented as of this encounter Care Teams Final Cleaner Relationship Specialty Start Date End Date Martha Dias FNP [address] [place] [phone] PCP - General FAMILY PRACTICE 09/05/21 05/18/24 La Roe FNP [address] [place] [address] [place] [address] PCP - General Nurse Practitioner Family 05/19/24 Giuseppe Viramontes MD CARDIOVASCULAR DISEASE 02/10/17 Jennifer Mtz, ANP- [address] [place] [phone] NURSE PRACTITIONER 02/10/17 Anabel Escobar, RN [address] [place], [place] [id number] Corporate Librarian (Ambulatory) REGISTERED NURSE 05/13/23 06/03/23 Leeanna Moralez, RN [address] [place] [address] Corporate Librarian (Ambulatory) REGISTERED NURSE 09/04/23 10/29/23 Leeanna Moralez RN [address] [place] [address] Corporate Librarian (Ambulatory) REGISTERED NURSE 07/20/24 08/18/24 Artie Diaz MD [address] [address] Consulting Physician CLINICAL CARDIAC ELECTROPHYSIOLOGY 08/17/24 Leeanna Moralez RN [address] [place] [address] Corporate Librarian (Ambulatory) REGISTERED NURSE 08/19/24 08/19/24 Leeanna Moralez RN [address] [place] [address] Corporate Librarian (Ambulatory) REGISTERED NURSE 07/20/24 09/08/24 documented as of this encounter
--- OUTSIDE RECORDS SUMMARY | 2025-06-05 20:12 | XMS_ITS | Clinical Summary ---
Author Organization [facility] Address [facility] [place] [address] Care Team Providers Care Grain Combiner Name Role Phone Wander Peralta MD, Robert Unavailable [phone] Jennifer Mtz ANP- Unavailable [phone] [place] Roe CULINARY MANAGER Primary Care Provider [phone] Artie Diaz MD Unavailable Allergies Active Allergy Reactions Criticality Noted Date Comments Lisinopril Cough 09/29/2017 Medications vitamin D3, cholecalciferol, 1000 UNIT Tab tabletIndications: Vitamin D Deficiency Take 1 tablet (25 mcg total) by mouth daily. Indications: Vitamin D Deficiency Active Melatonin 10 MG TabIndications:Ins omnia Take 1 tablet (10 mg total) by mouth nightly as needed. Indications: Trouble Sleeping Active Multiple Vitamin (MULTIVITAMIN ADULT OR)Indications:Nut ritional and Metabolic Cardiomyopathy Take 1 tablet by mouth daily. Indications: Heart Muscle Disease due to Nutritional/[place] bolic Disease Active aspirin (ASPIRIN LOW DOSE) 81 MG chewable tabletIndications: Anticoagulant Therapy Chew 1 tablet (81 mg total) by mouth daily. 90 tablet 1 12/02/19 24 Active NON FORMULARYIndicatio ns:Constipation Take 4 tablets by mouth nightly as needed. Herb-Lax Shaklee Take 4 tablets by mouth as needed Indications: Constipation 08/16/20 24 Active Coenzyme D30-Mxtuxsk E (QUNOL ULTRA COQ10 OR)Indications:Nut ritional Support Take 1 capsule by mouth daily. Indications: Nutritional Support 08/16/20 24 Active lidocaine 4 % patchIndications:C hronic Pain Place 1 patch onto the skin daily. Indications: Chronic Pain Remove & Discard patch within 12 hours or as directed by MD/CAMP TENDER 30 patch 08/26/20 24 Active acetaminophen CR (TYLENOL 8 HOUR ARTHRITIS PAIN) 650 MG Tab CR 8 hr tabletIndications: Left anterior shoulder pain Take 2 tablets (1,300 mg total) by mouth every 8 (eight) hours as needed. 09/29/20 24 Active allopurinol (ZYLOPRIM) 100 MG tabletIndications: Gout Take 1 tablet (100 mg total) by mouth daily. Indications: Gout 90 tablet 1 11/11/19 25 Active Additional Information Patient not taking.Reported on 04/08/2025 carvedilol (COREG) 3.125 MG tabletIndications: Hypertension Take 1 tablet (3.125 mg total) by mouth 2 (two) times daily. Indications: High Blood Pressure 180 tablet 1 11/11/19 25 Active pravastatin (PRAVACHOL) 40 MG tabletIndications: Hyperlipidemia Take 1 tablet (40 mg total) by mouth nightly at bedtime. Indications: High Amount of Fats in the Blood 90 tablet 1 11/11/19 25 Active valsartan (DIOVAN) 40 MG tabletIndications: Primary hypertension Take 1 tablet (40 mg total) by mouth daily. 90 tablet 1 11/11/19 25 Active levothyroxine (SYNTHROID) 75 MCG tabletIndications: Hypothyroidism Take 1 tablet (75 mcg total) by mouth every morning. Indications: Underactive Thyroid 90 tablet 1 12/31/19 25 Active amLODIPine (NORVASC) 10 MG tabletIndications: Hypertension Take 1 tablet (10 mg total) by mouth daily. Indications: High Blood Pressure 30 tablet 04/20/20 25 Active Active Problems Problem Noted Date Diagnosed Date Shortness of breath 04/08/2025 Assessment & Plan (04/08/2025 1:51 PM CDT): Patient reports worsening shortness of breath over the past few months. Recent echocardiogram shows normal left ventricular ejection fraction and a well-functioning TAVR valve. Left heart cath completed in 2022 did not show any significant coronary artery disease. Patient reports multiple bouts of bronchitis every year along with pneumonia. She also reports chronic exposure to secondhand smoke growing up. Recommended checking pulmonary function tests for further evaluation. Physical deconditioning 08/05/2024 Status post transcatheter ao rtic valve replacement (TAVR) using bioprosthesis 06/18/2024 Assessment & Plan (04/08/2025 1:48 PM CDT): S/p TAVR 08/2023. Recent echocardiogram shows a well-functioning valve. Repeat echocardiogram yearly. Discussed need for antibiotic prophylaxis prior to all dental cleanings and procedures. Assessment & Plan (06/18/2024 2:14 PM CDT): She had a well-functioning bioprostethetic valve on her most recent echo. Repeat echo at the beginning of next year. Continue antibiotic prophylaxis prior to dental procedures. Chronic kidney disease (CKD), stage II (mild) Cardiac pacemaker in situ 09/10/2023 Overview (09/10/2023): NATALIA MATAMOROS implanted 09/09/23 for CHB. CHB (complete heart block) ([facility]) Overview (09/10/2023): NATALIA MATAMOROS implanted 09/09/23 for CHB. Assessment & Plan (04/08/2025 1:48 PM CDT): Developed heart block after TAVR. S/p ppm. She follows with electrophysiology. Assessment & Plan (06/19/2024 12:18 PM CDT): Developed heart block after TAVR. S/p ppm. Severe aortic valve stenosis 09/03/2023 Melena 05/12/2023 Overview (05/13/2023): Added automatically from request for surgery [id number] Chronic pain of both knees 02/17/2023 BMI 33.0-33.9,adult 12/30/2022 Diastolic dysfunction 10/15/2022 Hip pain, right 08/10/2022 Assessment & Plan (08/10/2022 8:54 AM CDT): Just started to get groin pain. Will obtain x-ray. Mixed conductive and sensori neural hearing loss of both ears 06/12/2022 Overview (06/11/2024): Last Assessment & Plan: This is unchanged. No evidence of significant infection. I recommended continued amplification. She saw the manager subway who have her hearing aids serviced. Diffuse cholesteatosis of both middle ears 06/12 Overview (06/11/2024): Last Assessment & Plan: There was a thin layer of wax and epithelial debris lining both mastoid cavities. This was all removed. CSF powder applied. I recommended keeping her ears dry and follow up here in 6 months. Controlled type 2 diabetes m anabelle without complication, without long-term current use of insulin ([facility]) 05/22/2022 Assessment & Plan (08/10/2022 8:54 AM CDT): Does realize that steroids will elevate blood sugars. Could consider preapproval for Zilretta and viscosupplementation HARRISON (generalized anxiety disorder) 09/05/2021 PTSD (post-traumatic stress disorder) 09/05/2021 Psychogenic movement disorder 07/17/2021 Chronic gout of foot 12/14/2018 Hypothyroidism 12/14/2018 Fatty liver 07/14/2017 Overview (05/14/2019): Note: Visualized on CT of chest [address] [place] [address] Date Onset: 05/31/2014 Hypertension 04/07/2017 Assessment & Plan (04/08/2025 1:49 PM CDT): Blood pressure is well-controlled in office. Continue amlodipine, carvedilol, valsartan. Assessment & Plan (06/18/2024 2:14 PM CDT): Her blood pressure is mildly elevated. Encouraged home blood pressure monitoring. Continue Amlodipine, Valsartan, and Carvedilol. Assessment & Plan (07/08/2023 10:09 AM CDT): Continue carvedilol Nonrheumatic aortic valve stenosis 04/07/2017 Overview (05/14/2019): Date Onset: 04/14/2017 Assessment & Plan (07/08/2023 10:08 AM CDT): She has severe aortic valve stenosis on her most recent echocardiogram. Given her age, I think that she be a good candidate for transcatheter aortic valve replacement. I did discuss the procedure of transcatheter aortic valve replacement to the patient. I explained the procedure in detail including transfemoral access with placement of a balloon mounted valve inside the existing aortic valve. I explained the risks and benefits that include but are not limited to: bleeding, infection, vascular complication (10%), cerebrovascular accident (3 to 5%), permanent pacemaker placement (10%), myocardial infarction (1 to 2%), aortic root rupture (1 2%), valve embolization (1-2%) and even (1 to 2%). I did explain to the patient that if we were to proceed with transcatheter aortic valve replacement, we would have to proceed with the TAVR work-up that includes cardiac catheterization, CT scan and surgical evaluation. Hyperlipidemia 04/07/2017 Overview (05/14/2019): Date Onset: 07/18/2014 Assessment & Plan (04/08/2025 1:49 PM CDT): Last lipid panel well-controlled. Continue pravastatin. Assessment & Plan (06/18/2024 2:14 PM CDT): Continue Pravastatin. Assessment & Plan (07/08/2023 10:10 AM CDT): Continue pravastatin. Carotid artery disease 04/07/2017 Overview (05/14/2019): Note: less than 50% stenosis bilat 12/2016 Date Onset: 04/14/2017 Assessment & Plan (08/10/2022 8:54 AM CDT): Therefore would like to avoid nonsteroidal anti-inflammatories Heart murmur 07/29/2016 Overview (05/14/2019): Date Onset: 07/29/2016 Osteoarthritis of both knees 06/08/2015 Overview (05/14/2019): Note: X-ray May 2014 X-ray both knees. Date Onset: 07/18/2014 Assessment & Plan (04/08/2023 9:07 AM CDT): We discussed the risks, benefits, and alternatives. The only thing proven to slow the progression of osteoarthritis is weight loss. Every pound lost relieves 4 to 6 pounds of stress across the knee. We discussed unloading braces. Formal physical therapy to help with flexibility, mobility, and strength. We discussed TENS units. Nonsteroidal anti-inflammatories as well as Tylenol and pain medication and their side effects. We discussed steroid versus Visco supplement injection. We discussed eventual total knee arthroplasty. Synvisc One was injected into both knees, tolerated well. We'll see her back in three months for repeated evaluation. Assessment & Plan (12/30/2022 1:40 PM CDT): We discussed the adverse effects of weight on osteoarthritis. For every 1 pound loss, 4 to 6 pounds of stress is relieved from the knee, slightly more at the ankle and slightly less at the hip. We discussed low carbohydrate diet to help with weight loss. 80% of weight loss is through diet. We discussed the risks, benefits, and alternatives. The only thing proven to slow the progression of osteoarthritis is weight loss. Every pound lost relieves 4 to 6 pounds of stress across the knee. We discussed unloading braces. Formal physical therapy to help with flexibility, mobility, and strength. We discussed TENS units. Nonsteroidal anti-inflammatories as well as Tylenol and pain medication and their side effects. We discussed steroid versus Visco supplement injection. We discussed eventual total knee arthroplasty. The patient elected for steroid injections into her bilateral knees today. She tolerated this well. We will get her pre-approved her gel injections. She will follow up in 3 months. Assessment & Plan (09/17/2022 8:33 PM VENEER SAWYER): We discussed the risks, benefits and alternatives. The only thing proven to slow the progression of osteoarthritis is weight loss. Every pound lost relieves 4 to 6 pounds of stress across the knee. We discussed unloading braces. Formal physical therapy to help with flexibility, mobility and strength. We discussed TENS units. Nonsteroidal anti-inflammatories as well as Tylenol and pain medication and their side effects. We discussed steroid versus Visco supplement injection. We discussed eventual total knee arthroplasty. Right worse than left Synvisc injected right Follow-up in 3 months Assessment & Plan (08/10/2022 8:53 AM CDT): We discussed the risks, benefits and alternatives. The only thing proven to slow the progression of osteoarthritis is weight loss. Every pound lost relieves 4 to 6 pounds of stress across the knee. We discussed unloading braces. Formal physical therapy to help with flexibility, mobility and strength. We discussed TENS units. Nonsteroidal anti-inflammatories as well as Tylenol and pain medication and their side effects. We discussed steroid versus Visco supplement injection. We discussed eventual total knee arthroplasty. Hearing loss 05/31/2014 Resolved Problems Problem Noted Date Diagnosed Date Resolved Date Pneumonia 07/19/2024 08/26/2024 GIB (gastrointestinal bleeding) 05/12/2023 07/21/2023 Acute blood loss anemia 05/12/2023 08/12/2023 Overview (05/13/2023): Added automatically from request for surgery [id number] Chronic blood loss anemia 05/12/2023 Overview (05/13/2023): Added automatically from request for surgery [id number] Movement disorder 09/08/2019 07/21/2023 Breast disorder 06/08/2015 05/22/2022 Overview (05/14/2019): Note: recommend us every 6mths for 2 yrs to establish stability. Date Onset: 02/01 Glucose intolerance (impaire d glucose tolerance) 06/08/2015 05/22/2022 Overview (05/14/2019): Note: patient has a problem with glucose intolerance. Her he will A1 C. of 6.2. She was instructed in getting copy of diabetic diet. Although I don't think strict dietary compliance is absolutely necessary at this point time. Will recheck a malignancy 6 months. More strongly in force diet if patient's hemoglobin A1c goes about 6.5. Date Onset: 07/18/2014 Gout 05/31/2014 05/22/2022 Encounters Date Type Department Care Team Description 05/16/2025 Results Follow-Up [facility] [address] [place] [address] Mare Christianson RN Complete PFT (pre/post Man, Lung Vol, Diff Capacity) ([id number], [id number], [id number], [id number]) 05/10/2025 9:56 AM CDT - 05/10/2025 11:59 PM CDT Hospital Encounter [facility] [address] [place] [address] eTsha Kapoor PA Discharge Disposition: Home or Self Care (Routine Discharge) 05/10/2025 Scan HEALTH INFO SRVCS Scanned, Doc Med Group Procedure (SCAN) 05/10/2025 Travel 04/20/[address] [place] [address] La Roe FNP Refill Request 04/08/2025 1:00 PM CDT Office Visit [facility] [address] [place] [address] Tesha Kapoor PA Aortic Valve Stenosis 04/08/2025 Travel 04/04/[address] [place] [address] La Roe FNP Medication 03/07/2025 Travel 03/06/2025 2:30 PM CDT Allied Health/Nurse Visit [facility], [address] [address] Artie Diaz MD Remote Device Check from Last 3 Months Immunizations Immunization Administration Dates Next Due Fluzone 6 Months+ Quad (0.5 mL Prefilled Syringe) 09/10/2023(Deferred: Patient/family declined) Fluzone High Dose (IIV, triv alent, 0.5mL) 08/26/2024 Fluzone High Dose - >Age 65 (Prefilled Syringe) 07/22/2022,09/05/2021 Influenza (Generic) 08/03/2018,07/24/2016 Influenza Adult (Generic) 07/20/2019 Pneumococcal (Pneumovax 23) 09/05/2021 Pneumococcal (Prevnar 20) 08/26/2024 Family History Medical History Relation Comments No Known Problems Brother brain cancer Father No Known Problems Maternal Aunt Diabetes Maternal Grandfather Stroke Maternal Grandfather Diabetes Maternal Grandmother No Known Problems Maternal Uncle Glaucoma Mother Hypertension Mother Mental Health Mother stomach cancer Mother No Known Problems Paternal Aunt No Known Problems Paternal Grandfather No Known Problems Paternal Grandmother No Known Problems Paternal Uncle No Known Problems Sister Relation Status Comments Brother Father Maternal Aunt Maternal Grandfather Maternal Grandmother Maternal Uncle Mother Paternal Aunt Paternal Grandfather Paternal Grandmother Paternal Uncle Sister Social History Tobacco Use Types Packs/Day Years Used Date Smoking Tobacco: Never Smokeless Tobacco: Never Tobacco Cessation:Counseling Given: No Alcohol Use Standard Drinks/Week Comments No 0 [...] from your doctor or pharmacy? Never 08/03/2024 [facility] Utilities Answer Date Recorded In the past 12 months has th e electric, gas, oil, or water company threatened to [...] 08/03/2024 How often do you attend chur ch or quaker services? 1 to 4 times per year 08/03/2024 Do you belong to any clubs o r organizations such as adventist groups, unions, fraternal or athletic groups, or [...] Recorded Patient Health Questionnaire-2 Score 1 11/11/2024 [facility] [place] of Occupat ional Health - Occupational Stress [...] place to sleep or slept in a fpc (including now)? No 09/03/2023 Housing Stability Vital Sign Answer Jose e Recorded In the last 12 months, was t here a time when you were not able to pay the mortgage or rent on time? No 08/03/2024 In the past 12 months, how m any times have you moved where you were living? 0 08/03/2024 At any time in the past 12 m [facility], were you homeless or living in a fpc (including now)? No 08/03/2024 Comments No Sex and Gender Information Value Date Recorded Sex Assigned at Female 08/03/2024 4:24 PM CDT Legal Sex Female 7:54 AM CDT Gender Identity Female 08/03/2024 4:24 PM CDT Sexual Orientation Straight 08/03/2024 4: 24 PM CDT Last Filed Vital Signs Vital Sign Reading Time Taken Comments Blood Pressure 136/80 04/08/2025 12:46 PM CDT Pulse 88 04/08/2025 12:46 PM CDT Temperature 37.2 C (99 F) 11/11/2024 1:38 PM VENEER SAWYER Respiratory Rate 12 11/11/2024 1:38 PM VENEER SAWYER Oxygen Saturation 95% 11/11/2024 1:38 PM VENEER SAWYER Inhaled Oxygen Concentration - - Weight 78.5 kg (173 lb) 04/08/2025 12:46 PM CDT Height 154.9 cm (5' 1) 04/08/2025 12:46 PM CDT Body Mass Index 32.69 04/08/2025 12:46 PM CDT Plan of Treatment Upcoming Encounters Date Type Department Care Team (Late st Contact Info) Description 06/06/2025 2:40 PM CDT Allied Health/Nurse Visit [facility], [address] [place], [place] [id number] Artie Diaz MD Three [facility]. [address] [place] [address] 06/09/2025 3:20 PM CDT Office Visit [facility] [address] [place] [id number] La Roe [facility] [address] [place] [phone] 10/10/2025 10:00 AM VENEER SAWYER Appointment [facility] [address] [place] [address] Tesha Kapoor PA [address] [facility], [address] [place] [address] 10/28/2025 12:15 PM VENEER SAWYER [facility] [address] [place] [address] Dereck Ratliff MD Three [facility]. [facility] [address] [place], [place] [id number] Health Maintenance Due Date Last Done Comments Diabetes: Retinopathy Eye Exam 1962 DTaP, Tdap and Td Vaccines (1 - Tdap) 1964 RSV Immunization or 60+ Years (1 - 1-dose 75+ series) 2019 Hemoglobin A1C 05/12/2025 11/12/2024, 0912/2023, 11/17/2023, Additional history exists Lipid Panel 06/22/2025 06/22/2024, 10/21, 07/22/2023, Additional history exists Annual Medicare Wellness Visit 08/26/2025 Postponed from 2009 (Patient Refused) Zoster Vaccines (1 of 2) 08/26/2025 Pos tponed from 1994 (Patient Refused) Kidney Health Evaluation 11/12/2025 11/12/2024 COVID-19 Vaccine ( - season) 2050 Postponed from 06/20/2024 (Patient Refused) Dexa Scan (General) Completed 09/26/2021 Colorectal Cancer Screening Colonoscopy (10 Years) Discontinued 11/06/2021 Pneumococcal Vaccine: 50+ Years Completed 08/26/2024, 09/05/2021 PHQ-2 (Physician [place]) Completed 11/11/2024 Meningococcal B Vaccine Aged Out No l onger eligible based on patient's age to complete this topic Meningococcal Vaccine Aged Out No james pablo eligible based on patient's age to complete this topic RSV Immunizations Under 20 Months Aged Out No longer eligible based on patient's age to complete this topic Medical Devices Implanted Type Area Slice Cutting Machine Operator Helper Device Identifier Shelf Expiration Date Model / Serial / Lot Rv His Lead Implant-09/09 Implanted:Qty : 1 on 09/09/2023 by Artie Diaz MD Lead Implant [employer] 06/30/2025 [id number] / [id number] / Ra Lead Implant-09/09 Implanted:Qty : 1 on 09/09/2023 by Artie Diaz MD Lead Implant [employer] 01/29/2025 [id number] / [id number] / Description:Appendage Pacemaker- Implanted:Qty : 1 on 09/09/2023 by Artie Diaz MD Pacemaker Left: Chest [employer] 01/31/2025 [id number] / [id number] / Valve Implant-09/03 Implanted:Qty : 1 on 09/03/2023 by Dereck Ratliff MD Valve Implant Aorta [employer] CORONARY AND STRUCTURAL HEART - DIV MEDT 05/27/2025 [id number] / [id number] / Capsule Pill Cam - [id number] Implanted:Qty : 1 on 05/13/2023 by Bautista Dobson MD at [facility] N/A: Stomach COVIDIEN PILL CAM 07/22/2024 [id number] / / [id number] Procedures Procedure Name Priority Date/Time Associated Diagnosis Comments PULMONARY FUNCTION TEST Routine 05/10/2025 10:00 AM CDT SOB (shortness of breath) PULMONARY GENERIC 05/10/2025 HEMOGLOBIN, GLYCOSYLATED Routine 11/12/2024 9:40 AM VENEER SAWYER Diet-controlled diabetes mellitus ([facility]) LIPID PANEL Routine 06/22/2024 10:08 AM CDT Mixed hyperlipidemia COLONOSCOPY GENERIC (SCAN ORDER) 11/06/2021 BONE DENSITY/DEXA Routine 09/26/2021 1:4 1 PM VENEER SAWYER Asymptomatic menopausal state from Last 3 Months or Most Recently Relevant to Health Maintenance Results * Complete PFT (pre/post Spencer, Lung Vol, Diff Capacity) (15391, 80156, 89331, 59439) (05/10/2025 10:00 AM CDT) Narrative [facility] - 05/10/2025 10:00 AM CDT Breezy Skinner, 05/15/2025 2:08 PM [facility] PULMONARY FUNCTION TEST REPORT Sonia Gomessalas Quintanilla INTERPRETATION Please see attached scanned PFT report for raw values and technologist's comments. SPIROMETRY: Forced vital capacity (in liters): Pre-bronchodilator: 1.58,66% Post-bronchodilator: na% FEV1: (in liters) Pre-bronchodilator: 1.29,79% Post-bronchodilator: na% FEV1/FVC ratio: 81 % Inspection of the patient's flow-volume loops shows normal configuration of the inspiratory and expiratory limbs. LUNG VOLUMES: Na DLCO: Na 6mwt / O2 titration: not performed. IMPRESSION: 1. No obstruction, FEV1 and FVC were reduced however no lung volumes are available to assess for restriction. Appears the patient had some difficulty performing the test. 2. Lung volumes not performed 3. Uncorrected DLCO was nor performed. Dr. Bebeto Skinner [facility] Medical Group Pulmonary Medicine Tesha FUENTES PFT ORDERABLES Final Result [facility] [address] [place] [address], [place] [phone] * PULMONARY GENERIC (05/10/2025) 05/10/2025 us [employer] [facility] Scanned SCANNING Final Resu lt * (ABNORMAL) HEMOGLOBIN, GLYCOSYLATED (11/12/2024 9:40 AM VENEER SAWYER) HGB A1C 5.8(H) <5.7 % 11/12/2024 7:26 PM VENEER SAWYER [facility] Comment: ADA GUIDELINES 2010 5.7 TO 6.4% INCREASED RISK OF DIABETES > OR = 6.5% CONSISTENT WITH DIABETES ESTIMATED AVG GLUCOSE 120 mg/dL 11/12/2024 7:26 PM VENEER SAWYER [facility] 11/12/2024 9:40 AM VENEER SAWYER La Simpson Jyothi CULINARY MANAGER LABORATORY Final Result [facility] [address] [place] [address], [place] [phone] * (ABNORMAL) LIPID PANEL (06/22/2024 10:08 AM CDT) CHOLESTEROL 139 <200 MG/DL 06/22/2024 3:01 PM CDT [facility] TRIGLYCERIDES 154(H) <150 MG/DL 06/22/2024 3:01 PM CDT [facility] HDL 47 >40.0 MG/DL 06/22/2024 3:01 PM CDT [facility] LDL (CALCULATED) 61 <100 MG/DL 06/22/2024 3:01 PM CDT [facility] NON HDL CHOLESTEROL 92 <130 MG/DL 06/22/2024 3:01 PM CDT [facility] CHOL/HDL RATIO 3.0 0.0 - 4.5 06/22/2024 3:01 PM CDT [facility] VLDL CALCULATION 31 5 - 55 MG/DL 06/22/2024 3:01 PM CDT [facility] LIPID INTERPRETATION 06/22/2024 3:01 PM CDT [facility] Comment: NIH CONCENSUS REPORT RECOMMENDATIONS: ADULT CHILD LOW RISK: CHOLESTEROL <200 <170 TRIGLYCERIDE <150 --- HDL >=60 --- LDL <100 <110 BORDERLINE: CHOLESTEROL 200-239 170-199 TRIGLYCERIDE 150-199 --- HDL 40-59 --- LDL 100-159 110-129 HIGH RISK: CHOLESTEROL >=240 >=200 TRIGLYCERIDE >=200 --- HDL <40 --- LDL >=160 >=130 06/22/2024 10:0 8 AM CDT La Simpson Jyothi CULINARY MANAGER LABORATORY Final Result [facility] [address] [place] [address], [place] [phone] * COLONOSCOPY GENERIC (11/06/2021) 11/06/2021 Narrative 11/06/2021 Ordered by an unspecified provider. us Documents Scanned SCANNING Final Result * BONE DENSITY/DEXA (09/26/2021 1:41 PM VENEER SAWYER) Anatomical Region Laterality Modality Bone Bone Density 09/26/2021 2:11 PM VENEER SAWYER Impressions 09/26/2021 2:51 PM VENEER SAWYER FINDINGS AND IMPRESSION: Examination performed on a Cree SL .: LUMBAR SPINE L2-L4: 1. BMD: 1.038 g/cm2. 2. T score: -0.4. Previous T score: No previous available. 3. WHO classification: Normal young adult range. 4. Fracture risk: Very low. LEFT FEMORAL NECK: 1. BMD: 0.602 g/cm2. 2. T score: -2.2. Previous T score: No previous available. 3. WHO classification: Very osteopenic. 4. Fracture risk: Low. Recommendations: Recommend therapy and follow up to assess response. Voice recognition software utilized. Ordered By: MARTHA DIAS Interpreted By: Brice Jackson, 09/26/2021 2:11 PM Narrative 09/26/2021 2:51 PM VENEER SAWYER Examination: BONE DENSITY/DEXA Exam date/time: 09/26/2021 1:20 PM CLINICAL HISTORY: Screening . COMPARISON STUDIES: No previous available. Procedure Note Brice Jackson MD - 09/26/2021 Examination: BONE DENSITY/DEXA Exam date/time: 09/26/2021 1:20 PM CLINICAL HISTORY: Screening . COMPARISON STUDIES: No previous available. FINDINGS AND IMPRESSION: Examination performed on a [employer] SL .: LUMBAR SPINE L2-L4: 1. BMD: 1.038 g/cm2. 2. T score: -0.4. Previous T score: No previous available. 3. WHO classification: Normal young adult range. 4. Fracture risk: Very low. LEFT FEMORAL NECK: 1. BMD: 0.602 g/cm2. 2. T score: -2.2. Previous T score: No previous available. 3. WHO classification: Very osteopenic. 4. Fracture risk: Low. Recommendations: Recommend therapy and follow up to assess response. Voice recognition software utilized. Ordered By: MARTHA DIAS Interpreted By: Brice Jackson, 09/26/2021 2:11 PM Martha Dias CULINARY MANAGER DEXA Final Resul t from Last 3 Months or Most Recently Relevant to Health Maintenance Insurance [employer] Advance Directives Documents on File Type Date Recorded Patient Merchandise Support Associate Expl anation Advance Directives and Living Will 09/18/2021 12:00 AM ADVANCED DIRECTIVES Advance Directives and Living Will 09/18/2021 12:00 AM ADVANCED DIRECTIVES Advance Directives and Living Will 01/27/2015 12:00 AM ADVANCED DIRECTIVES Advance Directives and Living Will 08/30/2014 12:00 AM ADVANCED DIRECTIVES Advance Directives and Living Will 08/11/2014 12:00 AM ADVANCED DIRECTIVES Advance Directives and Living Will 08/02/2014 12:00 AM ADVANCED DIRECTIVES Advance Directives and Living Will 07/19/2014 12:00 AM ADVANCED DIRECTIVES Advance Directives and Living Will 07/05/2014 12:00 AM ADVANCED DIRECTIVES * Full Code (Latest Code Status on File) Date Activated Date Inactivated Comments 08/16/2024 1:41 PM * Full Code Date Activated Date Inactivated Comments 08/03/2024 4:38 PM 08/13/2024 4:18 PM * Full Code Date Activated Date Inactivated Comments 07/19/2024 11:46 PM 08/03/2024 2:58 PM * Full Code Date Activated Date Inactivated Comments 07/19/2024 7:29 PM 07/19/2024 11:44 PM * DNR Date Activated Date Inactivated Comments 07/19/2024 3:19 PM 07/19/2024 7:29 PM Care Teams Grain Combiner Relationship Specialty Start Date End Date La Roe FNP [address] [place] [address] [place] [address] PCP - General Nurse Practitioner Family 05/19/24 Giuseppe Viramontes MD CARDIOVASCULAR DISEASE 02/10/17 Jennifer Mtz ANP- [address] [facility] [address] [place] [address] NURSE PRACTITIONER 02/10/17 Artie Diaz MD [facility] [address] [place], [place] [address] Consulting Physician CLINICAL CARDIAC ELECTROPHYSIOLOGY 08/17/24
--- OUTSIDE RECORDS SUMMARY | 2025-06-05 20:13 | XMS_ITS | Encounter Summary ---
Author Organization [facility] Address [address] [place] [address] Care Team Providers Care Deputy Director Of Finance Name Role Phone Wander Peralta MD, Robert Unavailable [phone] Jennifer Mtz [facility]- Unavailable [phone] Martha Dias [facility] Primary Care Provider Unav ailable Anabel Escobar RN Unavailable [phone] Leeanna Moralez RN Unavailable [phone] La Roe [facility] Primary Care Provider [phone] Leeanna Moralez RN Unavailable [phone] Artie Diaz MD Unavailable Leeanna Moralez RN Unavailable [phone] Leeanna Moralez RN Unavailable [phone] Encounter Details Date Type Department Care Team (Late st Contact Info) Description 05/29/2023 Hospital Follow-up Call [facility] Medical/Surgical [address] [place] [address] Barb Jeronimo LPN Social History Tobacco Use Types Packs/Day Years Used Date Smoking Tobacco: Never Smokeless Tobacco: Never Comments:na Alcohol Use Standard Drinks/Week Comments No 0 [...] week 05/12/2023 [facility]? Never 05/12/2023 Do you belong to any clubs o r organizations such as mormon groups, unions, fraternal or athletic groups, or [...] Recorded Patient Health Questionnaire-2 Score 0 02/17/2023 [facility] - Occupational Stress Questionnaire Answer [...] place to sleep or slept in a [place] health care facility (including now)? No 05/12/2023 Comments No Sex [...] Assessment Author Status Yes 05/18/2023 1:45 AM CDT Yuridia Mays RN Active * Are you blind or do you have serious difficulty seeing, even when wearing glasses? Answer Date of Assessment Author Status No 05/18/2023 1:45 AM CDT Yuridia Mays RN Active * Do you have serious difficulty walking or climbing stairs? Answer Date of Assessment Author Status No 05/18/2023 1:45 AM CDT Yuridia Mays RN Active * Do you have difficulty dressing or bathing? Answer Date of Assessment Author Status Yes 05/18/2023 1:45 AM CDT Yuridia Mays RN Active * Because of a physical, mental, or emotional condition, do you have difficulty doing errands alone such as visiting a doctor's office or shopping? Answer Date of Assessment Author Status No 05/18/2023 1:45 AM CDT Yuridia Mays RN Active documented as of this encounter [...] 06/06/2025 2:40 PM CDT Allied Health/Nurse Visit [facility] THREE [facility], [address] [place] [address] Artie Diaz MD Three [facility]. [address] [place] [address] 06/09/2025 3:20 PM CDT Office Visit [facility] [address] [place], [place] [id number] La Roe [address] [place] [address] 10/10/2025 10:00 AM CLINICAL ACADEMIC ALLERGIST Appointment [facility] [address] [place] [address] Tesha Kapoor PA [address] [facility], [address] [place] [address] 10/28/2025 12:15 PM CLINICAL ACADEMIC ALLERGIST Office Visit [facility] [address] [place] [address] Dereck Ratliff MD Three [facility]. [address] [place] [address] documented as of this encounter Visit Diagnoses Not on filedocumented in this encounter Additional Health Concerns Infection Onset Date Last Indicated Resolved Time COVID-19 Rule Out 08/13/2023 08/13/2023 08/13/2023 11:34 AM CDT COVID-19 Confirmed 08/13/2023 08/13/2023 8:24 AM CLINICAL ACADEMIC ALLERGIST COVID-19 Rule Out 07/19/2024 07/19/2024 07/19/2024 11:11 AM CDT COVID-19 Rule Out 07/20/2024 07/20/2024 07/20/2024 4:23 AM CDT Rhinovirus 07/20/2024 07/20/2024 07/30/2024 12:3 2 AM CDT Assessment Noted Time PHQ-9 Depression Total Score: 0 12/04/19 22 2:43 PM CLINICAL ACADEMIC ALLERGIST documented as of this encounter Care Teams Deputy Director Of Finance Relationship Specialty Start Date End Date Martha Dias FNP [address] [place] [phone] PCP - General FAMILY PRACTICE 09/05/21 05/18/24 La Roe FNP [address] [place] [address] [place] [address] PCP - General Nurse Practitioner Family 05/19/24 Giuseppe Viramontes MD CARDIOVASCULAR DISEASE 02/10/17 Jennifer Mtz ANP- [address] [place] [address] [address] NURSE PRACTITIONER 02/10/17 Anabel Escobar, RN [address] [place], [place] [address] Events Director (Ambulatory) REGISTERED NURSE 05/13/23 06/03/23 Leeanna Moralez RN [address] [place], [place] [address] Events Director (Ambulatory) REGISTERED NURSE 09/04/23 10/29/23 Leeanna Moralez RN [address] [place], [place] [address] Events Director (Ambulatory) REGISTERED NURSE 07/20/24 08/18/24 Artie Diaz MD [address] [address] Consulting Physician CLINICAL CARDIAC ELECTROPHYSIOLOGY 08/17/24 Leeanna Moralez RN [address] [place], [place] [address] Events Director (Ambulatory) REGISTERED NURSE 08/19/24 08/19/24 Leeanna Moralez RN [address] [place], [place] [address] Events Director (Ambulatory) REGISTERED NURSE 07/20/24 09/08/24 documented as of this encounter
--- OUTSIDE RECORDS SUMMARY | 2025-06-05 20:13 | XMS_ITS | Encounter Summary ---
Author Organization [facility] Address [address] [place] [address] Care Team Providers Care Paper Cone Maker Name Role Phone Wander Peralta MD, Robert Unavailable [phone] Jennifer Mtz [facility]- Unavailable [phone] Martha Dias [facility] Primary Care Provider Unav ailable Anabel Escobar RN Unavailable [phone] Leeanna Moralez RN Unavailable [phone] La Roe [facility] Primary Care Provider [phone] Leeanna Moralez RN Unavailable [phone] Artie Diaz MD Unavailable Leeanna Moralez RN Unavailable [phone] Leeanna Moralez RN Unavailable [phone] Encounter Details Date Type Department Care Team (Late st Contact Info) Description 05/26/2023 Hospital Follow-up Call [facility] Medical/Surgical [address] [place] [address] Barb Jeronimo LPN Social History Tobacco [...] week 05/12/2023 How often do you attend up health system or rastafarian services? Never 05/12/2023 Do you belong to any clubs o r organizations such as taoist groups, unions, fraternal or athletic groups, or [...] Recorded Patient Health Questionnaire-2 Score 0 02/17/2023 [facility] - Occupational Stress Questionnaire [...] place to sleep or slept in a senior care (including now)? No 05/12/2023 Comments No Sex [...] 06/06/2025 2:40 PM CDT Allied Health/Nurse Visit [place] [facility] THREE [facility], [address] [place] [address] Artie Diaz MD Three [facility]. [address] [place] [address] 06/09/2025 3:20 PM CDT Office Visit [facility] [address] [facility] [address] [place], [place] [phone] La Roe [address] [place] [address] 10/10/2025 10:00 AM GUARD MUSEUM Appointment [facility] [address] [place] [address] Tesha Kapoor PA [address] [facility], [address] [place] [address] 10/28/2025 12:15 PM GUARD MUSEUM Office Visit [place] [facility] [address] [place] [address] Dereck Ratliff MD Three [facility]. [address] [place] [address] documented as of this encounter Visit Diagnoses Not on filedocumented in this encounter Additional Health Concerns Infection Onset Date Last Indicated Resolved Time COVID-19 Rule Out 08/13/2023 08/13/2023 08/13/2023 11:34 AM CDT COVID-19 Confirmed 08/13/2023 08/13/2023 8:24 AM GUARD MUSEUM COVID-19 Rule Out 07/19/2024 07/19/2024 07/19/2024 11:11 AM CDT COVID-19 Rule Out 07/20/2024 07/20/2024 07/20/2024 4:23 AM CDT Rhinovirus 07/20/2024 07/20/2024 07/30/2024 12:3 2 AM CDT Assessment Noted Time PHQ-9 Depression Total Score: 0 12/04/19 22 2:43 PM GUARD MUSEUM documented as of this encounter Care Teams Paper Cone Maker Relationship Specialty Start Date End Date Martha Dias FNP [address] [place] [phone] PCP - General FAMILY PRACTICE 09/05/21 05/18/24 La Roe FNP [address] [place] [address] [place] [address] PCP - General Nurse Practitioner Family 05/19/24 Giuseppe Viramontes MD CARDIOVASCULAR DISEASE 02/10/17 Jennifer Mtz ANP- [address] [place] [address] [address] NURSE PRACTITIONER 02/10/17 Anabel Escobar, RN [address] [place], [place] [address] [place] (Ambulatory) REGISTERED NURSE 05/13/23 06/03/23 Leeanna Moralez RN [address] [place], [place] [address] [place] (Ambulatory) REGISTERED NURSE 09/04/23 10/29/23 Leeanna Moralez RN [address] [place], [place] [address] [place] (Ambulatory) REGISTERED NURSE 07/20/24 08/18/24 Artie Diaz MD [address] [address] Consulting Physician CLINICAL CARDIAC ELECTROPHYSIOLOGY 08/17/24 Leeanna Moralez RN [address] [place], [place] [address] [place] (Ambulatory) REGISTERED NURSE 08/19/24 08/19/24 Leeanna Moralez RN [address] [place], [place] [address] [place] (Ambulatory) REGISTERED NURSE 07/20/24 09/08/24 documented as of this encounter
[2025-06-05 20:33] VITALS: BP 154/62; PULSE 69; RESP 18; TEMP 36.6; O2SAT 96
--- NOTE | 2025-06-05 20:38 | PC.NURSE ---
Patient and family request patient be admitted for pain control and ortho follow up. ERP notified. ERP notified that pain is getting worse as well.
[2025-06-05] MEDS: HYDROmorphone HCL INJ (*CRX) 1 MG/ML SYR 0.5 MG IV PUSH (21:04)
[2025-06-05] MEDS: LIDOCAINE 5% PATCH 1 PATCH TRANSDERM (21:12)
[2025-06-05 21:32] LABS: Hematocrit 36.5 % (37.0-47.0); Hemoglobin 12.6 g/dL (12.0-15.0); Immature Granulocyte Percent A 0.5 % (0-0.5); Lymphocytes Absolute Auto 1.15 K/mm3 (0.9-3.2); Mean Corpuscular HGB Conc 34.5 g/dl (32-36); Mean Corpuscular Hemoglobin 31.3 pg (26-34); Mean Corpuscular Volume 90.6 fl (80-100); Nucleated Red Blood Cells Absolute Auto 0.000 K/mm3 (0.0-0.012); Nucleated Red Blood Cells Perc 0.0 % (0.0-0.2); Platelet Count Result 203 k/mm3 (150-375); Red Blood Count 4.03 M/mm3 (4.2-5.4); White Blood Count 14.7 K/mm3 (4.5-10.0)
[2025-06-05 21:42] LABS: Alanine Aminotransferase 18 U/L (6-35); Albumin Level 4.1 g/dL (3.5-5.1); Alkaline Phosphatase 98 U/L (38-126); Anion Gap 8 mmol/L (4-12); Aspartate Amino Transferase 27 U/L (14-36); Bilirubin,Total 0.5 mg/dL (0.2-1.3); Blood Urea Nitrogen 17 mg/dL (7-17); Calcium 8.3 mg/dL (8.4-10.2); Carbon Dioxide 26 mmol/L (22-30); Chloride 100 mmol/L (98-107); Estimated Glomerular Filt Rate > 60; Glucose 145 mg/dL (65-110); Magnesium 2.0 mg/dL (1.6-2.3); Potassium 4.0 mmol/L (3.4-5.0); Sodium 134 mmol/L (137-145); Total Protein 7.3 g/dL (6.3-8.2)
--- NOTE | 2025-06-05 21:52 | ECG_ITS ---
Test Date: 2025-06-05 22:00:07 Measurements Intervals [place] Rate: 73 P: 77 VA: 216 QRS: -18 QRSD: 102 T: 67 QT: 401 QTc: 443 Interpretive Statements ELECTRONIC ATRIAL PACEMAKER WITH INHIBITION INCOMPLETE RIGHT BUNDLE BRANCH BLOCK CONSIDER INFERIOR INFARCT, AGE INDETERMINATE BASELINE ARTIFACT- I, II, III, AVR, AVL, AVF ABNORMAL ECG No previous ECG available for comparison Electronically Signed On 06-06-2025 07:03:29 CDT by Nickolas Vang D.O.
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
[2025-06-05 22:06] LABS: INR 1.0; Prothrombin Time 13.3 Seconds (11.1-14.7)
[2025-06-05 22:07] LABS: Partial Thromboplastin Time 32.1 Seconds (22.3-36.8)
[2025-06-05 22:33] VITALS: BP 128/63; PULSE 78; RESP 17; O2SAT 96
[2025-06-05 23:04] VITALS: BP 115/61; PULSE 75; RESP 17; O2SAT 97
[2025-06-05] MEDS: HYDROcodone/acetaminophen (*CRX) 5-325 MG TABLET 1 TAB PO (23:31)
[2025-06-06] VITALS (8 sets, daily range): BP systolic 137–172; BP diastolic 58–91; PULSE 72–91; RESP 16–18; TEMP 36.3–36.8; O2SAT 94–99; BMI 10.0
[2025-06-06] MEDS: HYDROmorphone HCL INJ (*CRX) 1 MG/ML SYR 0.5 MG IV PUSH ×2 (01:01→06:50)
[2025-06-06] MEDS: HYDROcodone/acetaminophen (*CRX) 5-325 MG TABLET 1 TAB PO ×5 (03:29→22:58)
[2025-06-06 08:37] LABS: Hematocrit 33.8 % (37.0-47.0); Hemoglobin 11.2 g/dL (12.0-15.0); Immature Granulocyte Percent A 0.3 % (0-0.5); Lymphocytes Absolute Auto 1.91 K/mm3 (0.9-3.2); Mean Corpuscular HGB Conc 33.1 g/dl (32-36); Mean Corpuscular Hemoglobin 30.7 pg (26-34); Mean Corpuscular Volume 92.6 fl (80-100); Nucleated Red Blood Cells Absolute Auto 0.000 K/mm3 (0.0-0.012); Nucleated Red Blood Cells Perc 0.0 % (0.0-0.2); Platelet Count Result 198 k/mm3 (150-375); Red Blood Count 3.65 M/mm3 (4.2-5.4); White Blood Count 9.5 K/mm3 (4.5-10.0)
[2025-06-06] MEDS: CHOLECALCIFEROL (VITAMIN D3) 25 MCG (1,000 UNITS) TABLET PO (08:52)
[2025-06-06] MEDS: ASPIRIN 81 MG ENTERIC TABLET PO (08:52)
[2025-06-06] MEDS: LEVOTHYROXINE SODIUM 75 MCG TABLET PO (08:52)
[2025-06-06] MEDS: PANTOPRAZOLE 40 MG TABLET PO ×2 (08:52→17:47)
[2025-06-06] MEDS: MAGNESIUM OXIDE 400 MG TABLET PO (08:53)
[2025-06-06] MEDS: VALSARTAN 40 MG TABLET PO (08:53)
[2025-06-06 09:00] LABS: Alanine Aminotransferase 16 U/L (6-35); Albumin Level 3.6 g/dL (3.5-5.1); Alkaline Phosphatase 70 U/L (38-126); Anion Gap 4 mmol/L (4-12); Aspartate Amino Transferase 24 U/L (14-36); Bilirubin,Total 0.3 mg/dL (0.2-1.3); Blood Urea Nitrogen 19 mg/dL (7-17); Calcium 8.4 mg/dL (8.4-10.2); Carbon Dioxide 30 mmol/L (22-30); Chloride 100 mmol/L (98-107); Estimated Glomerular Filt Rate 50; Glucose 105 mg/dL (65-110); Potassium 4.6 mmol/L (3.4-5.0); Sodium 134 mmol/L (137-145); Total Protein 6.5 g/dL (6.3-8.2)
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
--- NOTE | 2025-06-06 12:23 | P.PNIM_ITS ---
Progress Note: A&P Assessment and Plan (1) Closed comminuted left humeral fracture: Qualifiers: Encounter type: initial encounter Humerus Location: shaft Fracture alignment: displaced Qualified Code(s): S42.352A - Displaced comminuted fracture of shaft of humerus, left arm, initial encounter for closed fracture Code(s): S42.352A - Displaced comminuted fracture of shaft of humerus, left arm, initial encounter for closed fracture Status: Acute Assessment and Plan: -medications were reviewed not on blood thinners -evaluate for incidence of hypoglycemia -avoid any sedatives or anxiolytic -will evaluate for any arrhythmias -we evaluate for postural hypotension -imaging reviewed-Acute comminuted fracture of the left humeral neck with overlap of the fracture fragments -physical therapy for balance, gait and strength training after orthopedic evaluation (2) Ground-level fall: Code(s): W18.30XA - Fall on same level, unspecified, initial encounter Status: Acute Assessment and Plan: Closed comminuted left humeral fracture Orthopedics consult Multimodal pain management (3) Insomnia disorder: Qualifiers: Insomnia type: unspecified Qualified Code(s): G47.00 - Insomnia, unspecified Code(s): G47.00 - Insomnia, unspecified Status: Acute Assessment and Plan: Consider melatonin 3 mg Subjective Date/time seen: 06/06/25 12:23 Interval history: Patient complains of left shoulder pain. Orthopedics consulted. Review of Systems 2 Review of Systems: 12 systems were reviewed with pertinent positives and negatives per HPI. Except as documented in the HPI, all other systems were reviewed and are negative. Patient has maturing cataracts for which she is supposed to have cataract surgery in the next couple of weeks. She has chronic stress urinary incontinence. And chronic urinary urgency. She denies any dysuria. She has not had any fevers or chills. Exam Narrative: Weight 79.1 kg Const: Other: Obese, appears uncomfortable lying in ER stretcher on her back HENMT: Other: Nasal cannula in place, head is normocephalic atraumatic, oropharynx is markedly crowded, mucous membranes are tacky, no oral pharyngeal erythema Eyes: Other: Pupils are equal and reactive, no scleral icterus, no conjunctival pallor Neck: Other: No JVD, no lymphadenopathy Resp: Other: Clear to auscultation bilaterally, no increased work of breathing Cardio: Other: Regular rate, paced rhythm, 2+ bilateral radial pedal pulses, slight murmur GI: Other: Obese, soft, nontender, midline surgical scar in lower abdomen Skin: Other: Generalized pallor, non jaundice Neuro: Other: Alert oriented x4, speech is clear, no facial asymmetry, no localizing neurologic deficits noted during the course of conversation Extrem: Other: Patient has pain to the left upper humerus with deformity on palpation, distal extremity is neurovascularly intact, 2-3 second cap refill in the fingers, left arm is in the immobilizer Psych: Other: Appropriate mood and affect, pleasant and cooperative, fair judgment and insight Objective Data Vital Signs Vital Signs: Vital Signs - 24 hr 06/05/25 20:33 06/05/25 22:33 06/05/25 23:04 Temperature 97.9 F Pulse Rate 69 78 75 Respiratory Rate 18 17 17 Blood Pressure 154/62 H 128/63 115/61 Pulse Oximetry 96 96 97 Oxygen Delivery Oxygen Flow Rate 06/06/25 00:00 06/06/25 00:47 06/06/25 06:00 Temperature 97.4 F L 97.9 F Pulse Rate 72 72 Respiratory Rate 18 18 Blood Pressure 137/58 L 138/61 Pulse Oximetry 98 96 97 Oxygen Delivery Nasal Cannula Oxygen Flow Rate 3 Intake/Output Intake/Output: Intake & Output 06/03/25 06/04/25 06/05/25 06/06/25 23:59 23:59 23:59 23:59 Intake Total 200 0 Output Total 490 Balance 200 -490 Meds/Results Medications: Active Medications Generic Name Dose Route Start Last Admin Trade Name Freq PRN Reason Stop Dose Admin Acetaminophen 650 mg 06/05/25 22:15 Acetaminophen 325 Mg Tablet PO Q4H PRN Mild Pain (1-3) or Fever Hydrocodone Bitart/Acetaminophen 1 tab 06/05/25 22:15 06/06/25 09:02 Hydrocodone/Acetaminophen (*Crx) 5-325 Mg Tablet PO 1 tab Q4H PRN Administration Pain Rated 4-10 Aspirin 81 mg 06/06/25 09:00 06/06/25 08:52 Aspirin 81 Mg Enteric Tablet PO 81 mg DAILY GURJIT Administration Hydromorphone HCl 0.5 mg 06/05/25 22:15 06/06/25 06:50 Hydromorphone Hcl Inj (*Crx) 1 Mg/Ml Syr IV PUSH 0.5 mg Q4H PRN Administration Breakthrough Pain Levothyroxine Sodium 75 mcg 06/06/25 08:00 06/06/25 08:52 Levothyroxine Sodium 75 Mcg Tablet PO 75 mcg DAILY@0630 [facility] Administration Magnesium Oxide 400 mg 06/06/25 09:00 06/06/25 08:53 Magnesium Oxide 400 Mg Tablet PO 400 mg DAILY GURJIT Administration Melatonin 5 mg 06/05/25 23:25 06/06/25 03:43 Melatonin 5 Mg Tablet PO Not Given HS [facility] Ondansetron HCl 4 mg 06/05/25 22:15 Ondansetron Inj 4 Mg/2 Ml Vial IV PUSH Q4H PRN Nausea Pantoprazole Sodium 40 mg 06/06/25 09:00 06/06/25 08:52 Pantoprazole 40 Mg Tablet PO 40 mg BID GURJIT Administration Pravastatin Sodium 40 mg 06/06/25 21:00 Pravastatin Sodium 20 Mg Tablet PO HS GURJIT Valsartan 40 mg 06/06/25 09:00 06/06/25 08:53 Valsartan 40 Mg Tablet PO 40 mg DAILY GURJIT Administration Vitamin D 25 mcg 06/06/25 09:00 06/06/25 08:52 Cholecalciferol (Vitamin D3) 25 Mcg (1,000 Units) Tablet PO 25 mcg DAILY GURJIT Administration Radiology Results: ITS Impressions Clavicle X-Ray 06/05/25 19:14 IMPRESSION: Acute fracture within the humerus, without additional fracture deformity identified. Shoulder X-Ray 06/05/25 19:18 IMPRESSION: Acute comminuted fracture of the left humeral neck with overlap of the fracture fragments. Labs Labs: Laboratory Results - last 24 hr 06/05/25 06/05/25 06/06/25 21:13 21:48 08:14 WBC 14.7 H 9.5 RBC 4.03 L 3.65 L Hgb 12.6 11.2 L Hct 36.5 L 33.8 L MCV 90.6 92.6 MCH 31.3 30.7 MCHC 34.5 33.1 RDW 12.7 12.8 Plt Count 203 198 MPV 10.1 10.0 Immature Gran % (Auto) 0.5 0.3 Neut % (Auto) 86.0 H 68.1 Lymph % (Auto) 7.8 L 20.1 [place] % (Auto) 4.4 8.3 Eos % (Auto) 1.0 2.9 Baso % (Auto) 0.3 0.3 Lymph # (Auto) 1.15 1.91 [place] # (Auto) 0.7 H 0.8 H Eos # (Auto) 0.1 0.3 Baso # (Auto) 0.1 0.0 Abs Immat Gran (auto) 0.08 H 0.03 Absolute Neuts (auto) 12.6 H 6.5 Absolute Nucleated RBC 0.000 0.000 Nucleated RBC % 0.0 0.0 PT 13.3 INR 1.0 APTT 32.1 Sodium 134 L 134 L Potassium 4.0 4.6 Chloride 100 100 Carbon Dioxide 26 30 Anion Gap 8 4 BUN 17 19 H Creatinine 0.76 1.06 H Estim Creat Clear Calc Not Reportable Not Reportable Estimated GFR > 60 50 L Glucose 145 H 105 Calcium 8.3 L 8.4 Magnesium 2.0 Total Bilirubin 0.5 0.3 AST 27 24 ALT 18 16 Alkaline Phosphatase 98 70 Total Protein 7.3 6.5 Albumin 4.1 3.6 Blood Type O Negative Antibody Screen Negative Quality VTE Prophylaxis VTE prophylaxis: mechanical ordered (SCDs) Hospitalist MIPS Advance Care Plan I have confirmed that the patient's Advanced Care Plan is present, code status is documented, or surrogate decision maker is listed in patient medical record.: Yes Medication Reconciliation I have utilized all available resources to obtain, update and review the patients current medications (includes all prescriptions, OTC, herbals, cannabis, and nutritional supplements).: Yes
[2025-06-06] MEDS: PRAVASTATIN SODIUM 20 MG TABLET 40 MG PO (21:13)
[2025-06-06] MEDS: ACETAMINOPHEN 325 MG TABLET 650 MG PO (21:13)
[2025-06-07] MEDS: HYDROcodone/acetaminophen (*CRX) 5-325 MG TABLET 1 TAB PO ×4 (02:49→20:59)
[2025-06-07] MEDS: ACETAMINOPHEN 325 MG TABLET 650 MG PO (05:29)
[2025-06-07] MEDS: LEVOTHYROXINE SODIUM 75 MCG TABLET PO (05:29)
[2025-06-07 06:00] VITALS: BP 132/53; PULSE 78; RESP 20; TEMP 36.7; O2SAT 96
[2025-06-07 08:00] VITALS: O2SAT 96
[2025-06-07] MEDS: MAGNESIUM OXIDE 400 MG TABLET PO (09:33)
[2025-06-07] MEDS: ASPIRIN 81 MG ENTERIC TABLET PO (09:33)
[2025-06-07] MEDS: PANTOPRAZOLE 40 MG TABLET PO ×2 (09:33→17:13)
[2025-06-07] MEDS: CHOLECALCIFEROL (VITAMIN D3) 25 MCG (1,000 UNITS) TABLET PO (09:34)
[2025-06-07] MEDS: VALSARTAN 40 MG TABLET PO (09:34)
[2025-06-07] MEDS: MORPHINE SULFATE (*CRX) 2 MG/ML INJ IV PUSH ×3 (10:41→23:06)
[2025-06-07 11:20] VITALS: BMI 10.0
[2025-06-07 14:00] VITALS: BP 155/59; PULSE 70; RESP 16; TEMP 36.7; O2SAT 92
--- NOTE | 2025-06-07 16:39 | P.PNIM_ITS ---
Progress Note: A&P Assessment and Plan (1) Closed comminuted left humeral fracture: Qualifiers: Encounter type: initial encounter Humerus Location: shaft Fracture alignment: displaced Qualified Code(s): S42.352A - Displaced comminuted fracture of shaft of humerus, left arm, initial encounter for closed fracture Code(s): S42.352A - Displaced comminuted fracture of shaft of humerus, left arm, initial encounter for closed fracture Status: Acute Assessment and Plan: -medications were reviewed not on blood thinners -evaluate for incidence of hypoglycemia -avoid any sedatives or anxiolytic -will evaluate for any arrhythmias -we evaluate for postural hypotension -imaging reviewed-Acute comminuted fracture of the left humeral neck with overlap of the fracture fragments -physical therapy for balance, gait and strength training after orthopedic evaluation (2) Ground-level fall: Code(s): W18.30XA - Fall on same level, unspecified, initial encounter Status: Acute Assessment and Plan: Closed comminuted left humeral fracture Orthopedics consult Multimodal pain management (3) Insomnia disorder: Qualifiers: Insomnia type: unspecified Qualified Code(s): G47.00 - Insomnia, unspecified Code(s): G47.00 - Insomnia, unspecified Status: Acute Assessment and Plan: Consider melatonin 3 mg Subjective Date/time seen: 06/07/25 16:39 Interval history: Comfortable at bedside Review of Systems Review of Systems: 12 systems were reviewed with pertinent positives and negatives per HPI. Except as documented in the HPI, all other systems were reviewed and are negative. Patient has maturing cataracts for which she is supposed to have cataract surgery in the next couple of weeks. She has chronic stress urinary incontinence. And chronic urinary urgency. She denies any dysuria. She has not had any fevers or chills. Exam Narrative: Weight 79.1 kg Const: Other: Obese, appears uncomfortable lying in ER stretcher on her back HENMT: Other: Nasal cannula in place, head is normocephalic atraumatic, oropharynx is markedly crowded, mucous membranes are tacky, no oral pharyngeal erythema Eyes: Other: Pupils are equal and reactive, no scleral icterus, no conjunctival pallor Neck: Other: No JVD, no lymphadenopathy Resp: Other: Clear to auscultation bilaterally, no increased work of breathing Cardio: Other: Regular rate, paced rhythm, 2+ bilateral radial pedal pulses, slight murmur GI: Other: Obese, soft, nontender, midline surgical scar in lower abdomen Skin: Other: Generalized pallor, non jaundice Neuro: Other: Alert oriented x4, speech is clear, no facial asymmetry, no localizing neurologic deficits noted during the course of conversation Extrem: Other: Patient has pain to the left upper humerus with deformity on palpation, distal extremity is neurovascularly intact, 2-3 second cap refill in the fingers, left arm is in the immobilizer Psych: Other: Appropriate mood and affect, pleasant and cooperative, fair judgment and insight Objective Data Vital Signs Vital Signs: Vital Signs - 24 hr 06/06/25 20:45 06/06/25 21:06 06/06/25 23:44 Temperature 98.1 F Pulse Rate 91 Respiratory Rate 16 Blood Pressure 163/91 H Pulse Oximetry 99 95 Oxygen Delivery Nasal Cannula Nasal Cannula Oxygen Flow Rate 2 3 06/07/25 06:00 06/07/25 08:00 06/07/25 11:20 Temperature 98.0 F Pulse Rate 78 Respiratory Rate 20 Blood Pressure 132/53 L Pulse Oximetry 96 96 Oxygen Delivery Nasal Cannula Nasal Cannula Oxygen Flow Rate 2 3 06/07/25 14:00 Temperature 98.1 F Pulse Rate 70 Respiratory Rate 16 Blood Pressure 155/59 H Pulse Oximetry 92 Oxygen Delivery Oxygen Flow Rate Intake/Output Intake/Output: Intake & Output 06/04/25 06/05/25 06/06/25 06/07/25 23:59 23:59 23:59 23:59 Intake Total 972 140 9464 Output Total 1340 1490 Balance 200 -860 -360 Meds/Results Medications: Active Medications Generic Name Dose Route Start Last Admin Trade Name Freq PRN Reason Stop Dose Admin Acetaminophen 650 mg 06/05/25 22:15 06/07/25 05:29 Acetaminophen 325 Mg Tablet PO 650 mg Q4H PRN Administration Mild Pain (1-3) or Fever Hydrocodone Bitart/Acetaminophen 1 tab 06/05/25 22:15 06/07/25 09:33 Hydrocodone/Acetaminophen (*Crx) 5-325 Mg Tablet PO 1 tab Q4H PRN Administration Pain Rated 4-10 Aspirin 81 mg 06/06/25 09:00 06/07/25 09:33 Aspirin 81 Mg Enteric Tablet PO 81 mg DAILY GURJIT Administration Levothyroxine Sodium 75 mcg 06/06/25 08:00 06/07/25 05:29 Levothyroxine Sodium 75 Mcg Tablet PO 75 mcg DAILY@0630 GURJIT Administration Magnesium Oxide 400 mg 06/06/25 09:00 06/07/25 09:33 Magnesium Oxide 400 Mg Tablet PO 400 mg DAILY GURJIT Administration Melatonin 5 mg 06/05/25 23:25 06/07/25 02:12 Melatonin 5 Mg Tablet PO Not Given HS [facility] Morphine Sulfate 2 mg 06/07/25 10:28 06/07/25 10:41 Morphine Sulfate (*Crx) 2 Mg/Ml Inj IV PUSH 2 mg Q4H PRN Administration Pain Rated 7-10 Ondansetron HCl 4 mg 06/05/25 22:15 Ondansetron Inj 4 Mg/2 Ml Vial IV PUSH Q4H PRN Nausea Pantoprazole Sodium 40 mg 06/06/25 09:00 06/07/25 09:33 Pantoprazole 40 Mg Tablet PO 40 mg BID GURJIT Administration Pravastatin Sodium 40 mg 06/06/25 21:00 06/06/25 21:13 Pravastatin Sodium 20 Mg Tablet PO 40 mg HS GURJIT Administration Valsartan 40 mg 06/06/25 09:00 06/07/25 09:34 Valsartan 40 Mg Tablet PO 40 mg DAILY GURJIT Administration Vitamin D 25 mcg 06/06/25 09:00 06/07/25 09:34 Cholecalciferol (Vitamin D3) 25 Mcg (1,000 Units) Tablet PO 25 mcg DAILY GURJIT Administration Radiology Results: ITS Impressions Clavicle X-Ray 06/05/25 19:14 IMPRESSION: Acute fracture within the humerus, without additional fracture deformity identified. Shoulder X-Ray 06/05/25 19:18 IMPRESSION: Acute comminuted fracture of the left humeral neck with overlap of the fracture fragments. Chest X-Ray 06/06/25 15:13 IMPRESSION: 1: Interstitial opacities in both lungs. Differential includes chronic interstitial changes, interstitial edema or interstitial pneumonia. 2. Possible small right-sided pleural effusion versus pleural scarring. 3. Mildly displaced and comminuted acute/subacute fracture of the left humeral neck. Correlate clinically. Quality VTE Prophylaxis VTE prophylaxis: mechanical ordered (SCDs)
[2025-06-07] MEDS: PRAVASTATIN SODIUM 20 MG TABLET 40 MG PO (20:59)
[2025-06-07 22:00] VITALS: BP 170/69; PULSE 69; RESP 20; TEMP 36.8; O2SAT 92
[2025-06-07 22:37] VITALS: O2SAT 91
[2025-06-08] VITALS (7 sets, daily range): BP systolic 130–138; BP diastolic 59–64; PULSE 64–71; RESP 16–20; TEMP 36.8–37.1; O2SAT 80–97
[2025-06-08] MEDS: HYDROcodone/acetaminophen (*CRX) 5-325 MG TABLET 1 TAB PO ×5 (01:20→22:48)
[2025-06-08] MEDS: MORPHINE SULFATE (*CRX) 2 MG/ML INJ IV PUSH ×5 (03:09→23:40)
[2025-06-08] MEDS: LEVOTHYROXINE SODIUM 75 MCG TABLET PO (05:32)
[2025-06-08 06:06] LABS: Hematocrit 31.5 % (37.0-47.0); Hemoglobin 10.6 g/dL (12.0-15.0); Immature Granulocyte Percent A 0.5 % (0-0.5); Lymphocytes Absolute Auto 1.21 K/mm3 (0.9-3.2); Mean Corpuscular HGB Conc 33.7 g/dl (32-36); Mean Corpuscular Hemoglobin 31.3 pg (26-34); Mean Corpuscular Volume 92.9 fl (80-100); Nucleated Red Blood Cells Absolute Auto 0.000 K/mm3 (0.0-0.012); Nucleated Red Blood Cells Perc 0.0 % (0.0-0.2); Platelet Count Result 159 k/mm3 (150-375); Red Blood Count 3.39 M/mm3 (4.2-5.4); White Blood Count 11.5 K/mm3 (4.5-10.0)
[2025-06-08 06:19] LABS: Alanine Aminotransferase 15 U/L (6-35); Albumin Level 3.5 g/dL (3.5-5.1); Alkaline Phosphatase 69 U/L (38-126); Anion Gap 5 mmol/L (4-12); Aspartate Amino Transferase 30 U/L (14-36); Bilirubin,Total 0.5 mg/dL (0.2-1.3); Blood Urea Nitrogen 17 mg/dL (7-17); Calcium 8.3 mg/dL (8.4-10.2); Carbon Dioxide 31 mmol/L (22-30); Chloride 95 mmol/L (98-107); Estimated Glomerular Filt Rate 57; Glucose 130 mg/dL (65-110); Magnesium 2.0 mg/dL (1.6-2.3); Potassium 4.1 mmol/L (3.4-5.0); Sodium 131 mmol/L (137-145); Total Protein 6.4 g/dL (6.3-8.2)
[2025-06-08] MEDS: ASPIRIN 81 MG ENTERIC TABLET PO (08:16)
[2025-06-08] MEDS: CHOLECALCIFEROL (VITAMIN D3) 25 MCG (1,000 UNITS) TABLET PO (08:16)
[2025-06-08] MEDS: VALSARTAN 40 MG TABLET PO (08:16)
[2025-06-08] MEDS: PANTOPRAZOLE 40 MG TABLET PO ×2 (08:17→16:45)
[2025-06-08] MEDS: MAGNESIUM OXIDE 400 MG TABLET PO (08:17)
--- NOTE | 2025-06-08 12:15 | PCOTNOTE ---
Patient declined to participate at this time. Patient states having to much pain, she already did PT and needs to take a break and rest.
--- NOTE | 2025-06-08 14:19 | P.PNIM_ITS ---
Progress Note: A&P Assessment and Plan (1) Closed comminuted left humeral fracture: Qualifiers: Encounter type: initial encounter Humerus Location: shaft Fracture alignment: displaced Qualified Code(s): S42.352A - Displaced comminuted fracture of shaft of humerus, left arm, initial encounter for closed fracture Code(s): S42.352A - Displaced comminuted fracture of shaft of humerus, left arm, initial encounter for closed fracture Status: Acute Assessment and Plan: -medications were reviewed not on blood thinners -evaluate for incidence of hypoglycemia -avoid any sedatives or anxiolytic -will evaluate for any arrhythmias -we evaluate for postural hypotension -imaging reviewed-Acute comminuted fracture of the left humeral neck with overlap of the fracture fragments -physical therapy for balance, gait and strength training after orthopedic evaluation (2) Ground-level fall: Code(s): W18.30XA - Fall on same level, unspecified, initial encounter Status: Acute Assessment and Plan: Closed comminuted left humeral fracture Orthopedics recommends non operative management Multimodal pain management (3) Insomnia disorder: Qualifiers: Insomnia type: unspecified Qualified Code(s): G47.00 - Insomnia, unspecified Code(s): G47.00 - Insomnia, unspecified Status: Acute Assessment and Plan: Consider melatonin 3 mg Plan DVT prophylaxis on sq Lovenox awaiting placement Subjective Date/time seen: 06/08/25 14:19 Interval history: Comfortable at bedside Awaiting placement Review of Systems Review of Systems: 12 systems were reviewed with pertinent positives and negatives per HPI. Except as documented in the HPI, all other systems were reviewed and are negative. Patient has maturing cataracts for which she is supposed to have cataract surgery in the next couple of weeks. She has chronic stress urinary incontinence. And chronic urinary urgency. She denies any dysuria. She has not had any fevers or chills. Exam Narrative: Weight 79.1 kg Const: Other: Obese, appears uncomfortable lying in ER stretcher on her back HENMT: Other: Nasal cannula in place, head is normocephalic atraumatic, oropharynx is markedly crowded, mucous membranes are tacky, no oral pharyngeal erythema Eyes: Other: Pupils are equal and reactive, no scleral icterus, no conjunctival pallor Neck: Other: No JVD, no lymphadenopathy Resp: Other: Clear to auscultation bilaterally, no increased work of breathing Cardio: Other: Regular rate, paced rhythm, 2+ bilateral radial pedal pulses, slight murmur GI: Other: Obese, soft, nontender, midline surgical scar in lower abdomen Skin: Other: Generalized pallor, non jaundice Neuro: Other: Alert oriented x4, speech is clear, no facial asymmetry, no localizing neurolo gic deficits noted during the course of conversation Extrem: Other: Patient has pain to the left upper humerus with deformity on palpation, distal extremity is neurovascularly intact, 2-3 second cap refill in the fingers, left arm is in the immobilizer Psych: Other: Appropriate mood and affect, pleasant and cooperative, fair judgment and insight Objective Data Vital Signs Vital Signs: Vital Signs - 24 hr 06/07/25 20:55 06/07/25 22:00 06/07/25 22:37 Temperature 98.3 F Pulse Rate 69 Respiratory Rate 20 Blood Pressure 170/69 H Pulse Oximetry 92 91 Oxygen Delivery Nasal Cannula Nasal Cannula Oxygen Flow Rate 2 2 Fraction of Inspired Oxygen 28 06/08/25 05:39 06/08/25 08:00 06/08/25 08:49 Temperature 98.2 F Pulse Rate 68 71 Respiratory Rate 20 Blood Pressure 138/59 L Pulse Oximetry 93 94 93 Oxygen Delivery Nasal Cannula Nasal Cannula Oxygen Flow Rate 2 2 Fraction of Inspired Oxygen Intake/Output Intake/Output: Intake & Output 06/05/25 06/06/25 06/07/25 06/08/25 23:59 23:59 23:59 23:59 Intake Total 587 065 2905 705 Output Total 1340 2440 1625 Balance 200 860 -223 -920 Meds/Results Medications: Active Medications Generic Name Dose Route Start Last Admin Trade Name Freq PRN Reason Stop Dose Admin Acetaminophen 650 mg 06/05/25 22:15 06/07/25 05:29 Acetaminophen 325 Mg Tablet PO 650 mg Q4H PRN Administration Mild Pain (1-3) or Fever Hydrocodone Bitart/Acetaminophen 1 tab 06/05/25 22:15 06/08/25 11:45 Hydrocodone/Acetaminophen (*Crx) 5-325 Mg Tablet PO 1 tab Q4H PRN Administration Pain Rated 4-10 Aspirin 81 mg 06/06/25 09:00 06/08/25 08:16 Aspirin 81 Mg Enteric Tablet PO 81 mg DAILY GURJIT Administration Levothyroxine Sodium 75 mcg 06/06/25 08:00 06/08/25 05:32 Levothyroxine Sodium 75 Mcg Tablet PO 75 mcg DAILY@0630 GURJIT Administration Magnesium Oxide 400 mg 06/06/25 09:00 06/08/25 08:17 Magnesium Oxide 400 Mg Tablet PO 400 mg DAILY GURJIT Administration Melatonin 5 mg 06/05/25 23:25 06/08/25 04:59 Melatonin 5 Mg Tablet PO Not Given HS [facility] Morphine Sulfate 2 mg 06/07/25 10:28 06/08/25 12:50 Morphine Sulfate (*Crx) 2 Mg/Ml Inj IV PUSH 2 mg Q4H PRN Administration Pain Rated 7-10 Ondansetron HCl 4 mg 06/05/25 22:15 Ondansetron Inj 4 Mg/2 Ml Vial IV PUSH Q4H PRN Nausea Pantoprazole Sodium 40 mg 06/06/25 09:00 06/08/25 08:17 Pantoprazole 40 Mg Tablet PO 40 mg BID GURJIT Administration Polyethylene Glycol 17 gm 06/08/25 12:43 06/08/25 12:54 Polyethylene Glycol 3350 17 Gm Powd.Pack PO 17 gm QAM PRN Administration Constipation Pravastatin Sodium 40 mg 06/06/25 21:00 06/07/25 20:59 Pravastatin Sodium 20 Mg Tablet PO 40 mg HS [facility] Administration Valsartan 40 mg 06/06/25 09:00 06/08/25 08:16 Valsartan 40 Mg Tablet PO 40 mg DAILY GURJIT Administration Vitamin D 25 mcg 06/06/25 09:00 06/08/25 08:16 Cholecalciferol (Vitamin D3) 25 Mcg (1,000 Units) Tablet PO 25 mcg DAILY GURJIT Administration Radiology Results: ITS Impressions Clavicle X-Ray 06/05/25 19:14 IMPRESSION: Acute fracture within the humerus, without additional fracture deformity identified. Shoulder X-Ray 06/05/25 19:18 IMPRESSION: Acute comminuted fracture of the left humeral neck with overlap of the fracture fragments. Chest X-Ray 06/06/25 15:13 IMPRESSION: 1: Interstitial opacities in both lungs. Differential includes chronic interstitial changes, interstitial edema or interstitial pneumonia. 2. Possible small right-sided pleural effusion versus pleural scarring. 3. Mildly displaced and comminuted acute/subacute fracture of the left humeral neck. Correlate clinically. Labs Labs: Laboratory Results - last 24 hr 06/08/25 05:39 WBC 11.5 H RBC 3.39 L Hgb 10.6 L Hct 31.5 L MCV 92.9 MCH 31.3 MCHC 33.7 RDW 12.5 Plt Count 159 MPV 10.3 Immature Gran % (Auto) 0.5 Neut % (Auto) 78.0 H Lymph % (Auto) 10.5 L Summers % (Auto) 8.0 Eos % (Auto) 2.7 Baso % (Auto) 0.3 Lymph # (Auto) 1.21 Summers # (Auto) 0.9 H Eos # (Auto) 0.3 Baso # (Auto) 0.0 Abs Immat Gran (auto) 0.06 H Absolute Neuts (auto) 9.0 H Absolute Nucleated RBC 0.000 Nucleated RBC % 0.0 Sodium 131 L Potassium 4.1 Chloride 95 L Carbon Dioxide 31 H Anion Gap 5 BUN 17 Creatinine 0.94 Estim Creat Clear Calc Not Reportable Estimated GFR 57 L Glucose 130 H Calcium 8.3 L Magnesium 2.0 Total Bilirubin 0.5 AST 30 ALT 15 Alkaline Phosphatase 69 Total Protein 6.4 Albumin 3.5 Quality VTE Prophylaxis VTE prophylaxis: mechanical ordered (SCDs)
[2025-06-08] MEDS: PRAVASTATIN SODIUM 20 MG TABLET 40 MG PO (20:27)
[2025-06-08] MEDS: MELATONIN 5 MG TABLET PO (20:27)
[2025-06-09] MEDS: MORPHINE SULFATE (*CRX) 2 MG/ML INJ IV PUSH ×2 (04:26→20:46)
[2025-06-09] MEDS: HYDROcodone/acetaminophen (*CRX) 5-325 MG TABLET 1 TAB PO ×4 (06:27→17:40)
[2025-06-09] MEDS: LEVOTHYROXINE SODIUM 75 MCG TABLET PO (06:28)
[2025-06-09 08:00] VITALS: PULSE 72; O2SAT 93
[2025-06-09] MEDS: ENOXAPARIN 40 MG/0.4 ML SYRINGE SUB-Q (08:52)
[2025-06-09] MEDS: ASPIRIN 81 MG ENTERIC TABLET PO (08:54)
[2025-06-09] MEDS: VALSARTAN 40 MG TABLET PO (08:54)
[2025-06-09] MEDS: CHOLECALCIFEROL (VITAMIN D3) 25 MCG (1,000 UNITS) TABLET PO (08:55)
[2025-06-09] MEDS: MAGNESIUM OXIDE 400 MG TABLET PO (08:55)
[2025-06-09] MEDS: PANTOPRAZOLE 40 MG TABLET PO ×2 (08:55→16:49)
--- NOTE | 2025-06-09 12:36 | P.PNOP_ITS ---
Progress Note: A&P Assessment and Plan (1) Closed comminuted left humeral fracture: Qualifiers: Encounter type: initial encounter Humerus Location: shaft Fracture alignment: displaced Qualified Code(s): S42.352A - Displaced comminuted fracture of shaft of humerus, left arm, initial encounter for closed fracture Code(s): S42.352A - Displaced comminuted fracture of shaft of humerus, left arm, initial encounter for closed fracture Status: Acute Assessment and Plan: Radiographs the left shoulder revealed acute comminuted fracture of the left humeral neck. The fracture type and injury as well as radiographs discussed with the patient and family. Operative and nonoperative treatment options reviewed. Recommended non operative treatment. Risk of nonunion, malunion or late displacement discussed. Stiffness, pain and possible dysfunction of the joint discussed. Fracture precautions and activity restrictions reviewed. The patient and POA verbalizes understanding. PT/OT. Sling LUE. Pendulum exercises for hygeine purposes. NWB. Pain control. Ice. Care coordination consult for possible rehab placement. Dispo: SNF/[facility] for pain and mobility assistance. Care coordination consult. Will continue to follow in the outpatient orthopedic clinic for follow up radiographs. Plan Reviewed history, exam, radiographs and current labs with attending MD and covering surgeon, Dr. Sosa, who agrees with current plan as indicated above. No further recommendations from Dr. Sosa at this time. Subjective Subjective Date/Time Seen: 06/09/25 12:36 Principal diagnosis: Left Shoulder Fracture Interval history: Patient sitting up in chair. Reports some improvement in pain overall today. No new concerns. Requesting help with her meal. Review of Systems Constitutional: Constitutional: Reports no additional constitutional complaints, Denies chills, Denies fatigue, Denies fever(s), Denies headache(s) and Denies weakness Eyes: Eyes: Denies change in vision ENT: Reports Normal hearing present and Denies headache(s) Cardiovascular: Cardiovascular: Denies chest pain and Denies dyspnea Respiratory: Respiratory: Denies cough, Denies dyspnea and Denies wheezing Gastrointestinal: Gastrointestinal: Denies constipation, Denies diarrhea, Denies nausea and Denies vomiting Genitourinary: Genitourinary: Denies hematuria, Denies dysuria and Denies urinary urgency Musculoskeletal: Musculoskeletal: Reports as per HPI, Denies numbness and Denies tingling Integumentary/Breasts: Skin/Breast: Reports as per HPI Neurologic: Reports as per HPI, Reports Normal hearing present, Denies headache(s), Denies numbness, Denies tingling and Denies weakness Psychiatric: Psychiatric: Reports no additional psychiatric complaints Endocrine: Endocrine: Reports no additional endocrine complaints and Denies fatigue Hematologic/Lymphatic: Hematologic/Lymphatic: Reports no additional hematologic/lymphatic complaints Allergic/Immunologic: Allergic/Immunologic: Reports no additional allergic/immunologic complaints and Denies wheezing Exam Const: General: comfortable and no acute distress HENMT: Mouth: Yes moist mucous membranes Eyes: General: appearance normal, both eyes and all related structures Neck: Neck: supple and no JVD Resp: Effort & Inspection: normal respiratory effort Cardio: Rate: regular rate Rhythm: regular rhythm GI: Inspection: non-distended GI Palp: Yes Soft to palpation and No Tenderness to palpation present (GI) Neuro: General: gait normal Cognition (Neuro): normal cognition Speech: normal speech Extrem: Left upper extremity: shoulder/upper arm tenderness of the proximal humerus, axillary nerve sensory function normal and abnormal ROM held in an abnormal fashion in ADduction; no lacerations, no ecchymosis and no deformity, elbow/forearm normal to inspection, swelling and abnormal ROM held in an abnormal fashion in flexion; no tenderness, wrist normal to inspection and normal ROM; no tenderness and hand normal to inspection, normal capillary refill, neuromotor exam normal, neurosensory exam normal and tenderness Psych: Mental Status: mental status grossly normal Affect: normal affect Objective Data Vital Signs Vital Signs: Vital Signs - 24 hr 06/08/25 14:00 06/08/25 20:00 06/08/25 21:38 Temperature 36.8 C Pulse Rate 64 Respiratory Rate 18 Blood Pressure 130/59 L Pulse Oximetry 95 97 80 L Oxygen Delivery Nasal Cannula Nasal Cannula Oxygen Flow Rate 2 2 Fraction of Inspired Oxygen 28 06/08/25 21:59 06/09/25 08:00 Temperature 37.1 C Pulse Rate 69 72 Respiratory Rate 16 Blood Pressure 133/64 Pulse Oximetry 97 93 Oxygen Delivery Nasal Cannula Oxygen Flow Rate 2 Fraction of Inspired Oxygen Intake/Output Intake/Output: Intake & Output 06/06/25 06/07/25 06/08/25 06/09/25 23:59 23:59 23:59 23:59 Intake Total 480 1970 945 0 Output Total 1340 2440 2975 1850 Balance -975 -553 -8166 -1850 Meds/Results Medications: Active Medications Generic Name Dose Route Start Last Admin Trade Name Freq PRN Reason Stop Dose Admin Acetaminophen 650 mg 06/05/25 22:15 06/07/25 05:29 Acetaminophen 325 Mg Tablet PO 650 mg Q4H PRN Administration Mild Pain (1-3) or Fever Hydrocodone Bitart/Acetaminophen 1 tab 06/05/25 22:15 06/09/25 10:27 Hydrocodone/Acetaminophen (*Crx) 5-325 Mg Tablet PO 1 tab Q4H PRN Administration Pain Rated 4-10 Aspirin 81 mg 06/06/25 09:00 06/09/25 08:54 Aspirin 81 Mg Enteric Tablet PO 81 mg DAILY GURJIT Administration Enoxaparin Sodium 40 mg 06/09/25 09:00 06/09/25 08:52 Enoxaparin 40 Mg/0.4 Ml Syringe SUB-Q 40 mg DAILY GURJIT Administration Levothyroxine Sodium 75 mcg 06/06/25 08:00 06/09/25 06:28 Levothyroxine Sodium 75 Mcg Tablet PO 75 mcg DAILY@0630 GURJIT Administration Magnesium Oxide 400 mg 06/06/25 09:00 06/09/25 08:55 Magnesium Oxide 400 Mg Tablet PO 400 mg DAILY GURJIT Administration Melatonin 5 mg 06/05/25 23:25 06/08/25 20:27 Melatonin 5 Mg Tablet PO 5 mg HS GURJIT Administration Morphine Sulfate 2 mg 06/07/25 10:28 06/09/25 04:26 Morphine Sulfate (*Crx) 2 Mg/Ml Inj IV PUSH 2 mg Q4H PRN Administration Pain Rated 7-10 Ondansetron HCl 4 mg 06/05/25 22:15 Ondansetron Inj 4 Mg/2 Ml Vial IV PUSH Q4H PRN Nausea Pantoprazole Sodium 40 mg 06/06/25 09:00 06/09/25 08:55 Pantoprazole 40 Mg Tablet PO 40 mg BID GURJIT Administration Polyethylene Glycol 17 gm 06/08/25 12:43 06/09/25 08:53 Polyethylene Glycol 3350 17 Gm Powd.Pack PO 17 gm QAM PRN Administration Constipation Pravastatin Sodium 40 mg 06/06/25 21:00 06/08/25 20:27 Pravastatin Sodium 20 Mg Tablet PO 40 mg HS GURJIT Administration Valsartan 40 mg 06/06/25 09:00 06/09/25 08:54 Valsartan 40 Mg Tablet PO 40 mg DAILY GURJIT Administration Vitamin D 25 mcg 06/06/25 09:00 06/09/25 08:55 Cholecalciferol (Vitamin D3) 25 Mcg (1,000 Units) Tablet PO 25 mcg DAILY GURJIT Administration Radiology Results: ITS Impressions Clavicle X-Ray 06/05/25 19:14 IMPRESSION: Acute fracture within the humerus, without additional fracture deformity i dentified. Shoulder X-Ray 06/05/25 19:18 IMPRESSION: Acute comminuted fracture of the left humeral neck with overlap of the fracture fragments. Chest X-Ray 06/06/25 15:13 IMPRESSION: 1: Interstitial opacities in both lungs. Differential includes chronic interstitial changes, interstitial edema or interstitial pneumonia. 2. Possible small right-sided pleural effusion versus pleural scarring. 3. Mildly displaced and comminuted acute/subacute fracture of the left humeral neck. Correlate clinically.
[2025-06-09 15:22] VITALS: BP 136/58; PULSE 79; RESP 16; TEMP 36.9; O2SAT 97
[2025-06-09 15:57] VITALS: O2SAT 94
--- NOTE | 2025-06-09 16:13 | P.PNIM_ITS ---
Progress Note: A&P Assessment and Plan (1) Closed comminuted left humeral fracture: Qualifiers: Encounter type: initial encounter Humerus Location: shaft Fracture alignment: displaced Qualified Code(s): S42.352A - Displaced comminuted fracture of shaft of humerus, left arm, initial encounter for closed fracture Code(s): S42.352A - Displaced comminuted fracture of shaft of humerus, left arm, initial encounter for closed fracture Status: Acute Assessment and Plan: -medications were reviewed not on blood thinners -evaluate for incidence of hypoglycemia -avoid any sedatives or anxiolytic -will evaluate for any arrhythmias -we evaluate for postural hypotension -imaging reviewed-Acute comminuted fracture of the left humeral neck with overlap of the fracture fragments -physical therapy for balance, gait and strength training after orthopedic evaluation (2) Ground-level fall: Code(s): W18.30XA - Fall on same level, unspecified, initial encounter Status: Acute Assessment and Plan: Closed comminuted left humeral fracture Orthopedics recommends non operative management Multimodal pain management (3) Insomnia disorder: Qualifiers: Insomnia type: unspecified Qualified Code(s): G47.00 - Insomnia, unspecified Code(s): G47.00 - Insomnia, unspecified Status: Acute Assessment and Plan: Consider melatonin 3 mg Plan DVT prophylaxis on sq Lovenox awaiting placement Subjective Date/time seen: 06/09/25 16:13 Interval history: Comfortable at bedside awaiting placement Review of Systems Review of Systems: 12 systems were reviewed with pertinent positives and negatives per HPI. Except as documented in the HPI, all other systems were reviewed and are negative. Patient has maturing cataracts for which she is supposed to have cataract surgery in the next couple of weeks. She has chronic stress urinary incontinence. And chronic urinary urgency. She denies any dysuria. She has not had any fevers or chills. Exam Narrative: Weight 79.1 kg Const: Other: Obese, appears uncomfortable lying in ER stretcher on her back HENMT: Other: Nasal cannula in place, head is normocephalic atraumatic, oropharynx is markedly crowded, mucous membranes are tacky, no oral pharyngeal erythema Eyes: Other: Pupils are equal and reactive, no scleral icterus, no conjunctival pallor Neck: Other: No JVD, no lymphadenopathy Resp: Other: Clear to auscultation bilaterally, no increased work of breathing Cardio: Other: Regular rate, paced rhythm, 2+ bilateral radial pedal pulses, slight murmur GI: Other: Obese, soft, nontender, midline surgical scar in lower abdomen Skin: Other: Generalized pallor, non jaundice Neuro: Other: Alert oriented x4, speech is clear, no facial asymmetry, no localizing neurolo gic deficits noted during the course of conversation Extrem: Other: Patient has pain to the left upper humerus with deformity on palpation, distal extremity is neurovascularly intact, 2-3 second cap refill in the fingers, left arm is in the immobilizer Psych: Other: Appropriate mood and affect, pleasant and cooperative, fair judgment and insight Objective Data Vital Signs Vital Signs: Vital Signs - 24 hr 06/08/25 20:00 06/08/25 21:38 06/08/25 21:59 Temperature 98.8 F Pulse Rate 69 Respiratory Rate 16 Blood Pressure 133/64 Pulse Oximetry 97 80 L 97 Oxygen Delivery Nasal Cannula Nasal Cannula Oxygen Flow Rate 2 2 Fraction of Inspired Oxygen 28 06/09/25 08:00 06/09/25 15:22 06/09/25 15:57 Temperature 98.4 F Pulse Rate 72 79 Respiratory Rate 16 Blood Pressure 136/58 L Pulse Oximetry 93 97 94 Oxygen Delivery Nasal Cannula Room Air Oxygen Flow Rate 2 Fraction of Inspired Oxygen Intake/Output Intake/Output: Intake & Output 06/06/25 06/07/25 06/08/25 06/09/25 23:59 23:59 23:59 23:59 Intake Total 480 1970 945 330 Output Total 1340 2440 2975 1850 [facility] [phone] Meds/Results Medications: Active Medications Generic Name Dose Route Start Last Admin Trade Name Freq PRN Reason Stop Dose Admin Acetaminophen 650 mg 06/05/25 22:15 06/07/25 05:29 Acetaminophen 325 Mg Tablet PO 650 mg Q4H PRN Administration Mild Pain (1-3) or Fever Hydrocodone Bitart/Acetaminophen 1 tab 06/05/25 22:15 06/09/25 13:57 Hydrocodone/Acetaminophen (*Crx) 5-325 Mg Tablet PO 1 tab Q4H PRN Administration Pain Rated 4-10 Aspirin 81 mg 06/06/25 09:00 06/09/25 08:54 Aspirin 81 Mg Enteric Tablet PO 81 mg DAILY GURJIT Administration Enoxaparin Sodium 40 mg 06/09/25 09:00 06/09/25 08:52 Enoxaparin 40 Mg/0.4 Ml Syringe SUB-Q 40 mg DAILY GURJIT Administration Levothyroxine Sodium 75 mcg 06/06/25 08:00 06/09/25 06:28 Levothyroxine Sodium 75 Mcg Tablet PO 75 mcg DAILY@0630 GURJIT Administration Magnesium Oxide 400 mg 06/06/25 09:00 06/09/25 08:55 Magnesium Oxide 400 Mg Tablet PO 400 mg DAILY GURJIT Administration Melatonin 5 mg 06/05/25 23:25 06/08/25 20:27 Melatonin 5 Mg Tablet PO 5 mg HS GURJIT Administration Morphine Sulfate 2 mg 06/07/25 10:28 06/09/25 04:26 Morphine Sulfate (*Crx) 2 Mg/Ml Inj IV PUSH 2 mg Q4H PRN Administration Pain Rated 7-10 Ondansetron HCl 4 mg 06/05/25 22:15 Ondansetron Inj 4 Mg/2 Ml Vial IV PUSH Q4H PRN Nausea Pantoprazole Sodium 40 mg 06/06/25 09:00 06/09/25 08:55 Pantoprazole 40 Mg Tablet PO 40 mg BID GURJIT Administration Polyethylene Glycol 17 gm 06/08/25 12:43 06/09/25 08:53 Polyethylene Glycol 3350 17 Gm Powd.Pack PO 17 gm QAM PRN Administration Constipation Pravastatin Sodium 40 mg 06/06/25 21:00 06/08/25 20:27 Pravastatin Sodium 20 Mg Tablet PO 40 mg HS GURJIT Administration Valsartan 40 mg 06/06/25 09:00 06/09/25 08:54 Valsartan 40 Mg Tablet PO 40 mg DAILY GURJIT Administration Vitamin D 25 mcg 06/06/25 09:00 06/09/25 08:55 Cholecalciferol (Vitamin D3) 25 Mcg (1,000 Units) Tablet PO 25 mcg DAILY GURJIT Administration Radiology Results: ITS Impressions Clavicle X-Ray 06/05/25 19:14 IMPRESSION: Acute fracture within the humerus, without additional fracture deformity identi fied. Shoulder X-Ray 06/05/25 19:18 IMPRESSION: Acute comminuted fracture of the left humeral neck with overlap of the fracture fragments. Chest X-Ray 06/06/25 15:13 IMPRESSION: 1: Interstitial opacities in both lungs. Differential includes chronic interstitial changes, interstitial edema or interstitial pneumonia. 2. Possible small right-sided pleural effusion versus pleural scarring. 3. Mildly displaced and comminuted acute/subacute fracture of the left humeral neck. Correlate clinically. Quality VTE Prophylaxis VTE prophylaxis: mechanical ordered (SCDs)
[2025-06-09] MEDS: PRAVASTATIN SODIUM 20 MG TABLET 40 MG PO (20:46)
[2025-06-09] MEDS: MELATONIN 5 MG TABLET PO (20:46)
[2025-06-09 21:50] VITALS: BP 165/55; PULSE 67; RESP 18; TEMP 36.1; O2SAT 90
[2025-06-10] MEDS: HYDROcodone/acetaminophen (*CRX) 5-325 MG TABLET 1 TAB PO ×2 (00:20→09:40)
[2025-06-10 05:25] VITALS: BP 141/61; PULSE 70; RESP 16; TEMP 36.9; O2SAT 96
[2025-06-10] MEDS: LEVOTHYROXINE SODIUM 75 MCG TABLET PO (06:13)
[2025-06-10 06:23] LABS: Hematocrit 31.7 % (37.0-47.0); Hemoglobin 10.9 g/dL (12.0-15.0); Immature Granulocyte Percent A 0.3 % (0-0.5); Lymphocytes Absolute Auto 1.25 K/mm3 (0.9-3.2); Mean Corpuscular HGB Conc 34.4 g/dl (32-36); Mean Corpuscular Hemoglobin 31.8 pg (26-34); Mean Corpuscular Volume 92.4 fl (80-100); Nucleated Red Blood Cells Absolute Auto 0.000 K/mm3 (0.0-0.012); Nucleated Red Blood Cells Perc 0.0 % (0.0-0.2); Platelet Count Result 185 k/mm3 (150-375); Red Blood Count 3.43 M/mm3 (4.2-5.4); White Blood Count 7.7 K/mm3 (4.5-10.0)
[2025-06-10 06:45] LABS: Alanine Aminotransferase 12 U/L (6-35); Albumin Level 3.4 g/dL (3.5-5.1); Alkaline Phosphatase 71 U/L (38-126); Anion Gap 3 mmol/L (4-12); Aspartate Amino Transferase 27 U/L (14-36); Bilirubin,Total 0.5 mg/dL (0.2-1.3); Blood Urea Nitrogen 22 mg/dL (7-17); Calcium 8.8 mg/dL (8.4-10.2); Carbon Dioxide 35 mmol/L (22-30); Chloride 94 mmol/L (98-107); Estimated Glomerular Filt Rate 57; Glucose 113 mg/dL (65-110); Magnesium 2.2 mg/dL (1.6-2.3); Potassium 4.0 mmol/L (3.4-5.0); Sodium 132 mmol/L (137-145); Total Protein 6.4 g/dL (6.3-8.2)
[2025-06-10] MEDS: MAGNESIUM OXIDE 400 MG TABLET PO (09:39)
[2025-06-10] MEDS: ASPIRIN 81 MG ENTERIC TABLET PO (09:40)
[2025-06-10] MEDS: CHOLECALCIFEROL (VITAMIN D3) 25 MCG (1,000 UNITS) TABLET PO (09:40)
[2025-06-10] MEDS: PANTOPRAZOLE 40 MG TABLET PO ×2 (09:40→17:10)
[2025-06-10] MEDS: VALSARTAN 40 MG TABLET PO (09:40)
[2025-06-10] MEDS: ENOXAPARIN 40 MG/0.4 ML SYRINGE SUB-Q (09:45)
--- NOTE | 2025-06-10 12:43 | P.PNIM_ITS ---
Progress Note: A&P Assessment and Plan (1) Closed comminuted left humeral fracture: Qualifiers: Encounter type: initial encounter Humerus Location: shaft Fracture alignment: displaced Qualified Code(s): S42.352A - Displaced comminuted fracture of shaft of humerus, left arm, initial encounter for closed fracture Code(s): S42.352A - Displaced comminuted fracture of shaft of humerus, left arm, initial encounter for closed fracture Status: Acute Assessment and Plan: -medications were reviewed not on blood thinners -evaluate for incidence of hypoglycemia -avoid any sedatives or anxiolytic -will evaluate for any arrhythmias -we evaluate for postural hypotension -imaging reviewed-Acute comminuted fracture of the left humeral neck with overlap of the fracture fragments -physical therapy for balance, gait and strength training after orthopedic evaluation (2) Ground-level fall: Code(s): W18.30XA - Fall on same level, unspecified, initial encounter Status: Acute Assessment and Plan: Closed comminuted left humeral fracture Orthopedics recommends non operative management Multimodal pain management (3) Insomnia disorder: Qualifiers: Insomnia type: unspecified Qualified Code(s): G47.00 - Insomnia, unspecified Code(s): G47.00 - Insomnia, unspecified Status: Acute Assessment and Plan: Continue Melatonin at nighttime Plan DVT prophylaxis on sq Lovenox awaiting placement Subjective Date/time seen: 06/10/25 12:43 Interval history: Comfortable at bedside awaiting placement Review of Systems Review of Systems: 12 systems were reviewed with pertinent positives and negatives per HPI. Except as documented in the HPI, all other systems were reviewed and are negative. Patient has maturing cataracts for which she is supposed to have cataract surgery in the next couple of weeks. She has chronic stress urinary incontinence. And chronic urinary urgency. She denies any dysuria. She has not had any fevers or chills. Exam Narrative: Weight 79.1 kg Const: Other: Obese, appears uncomfortable lying in ER stretcher on her back HENMT: Other: Nasal cannula in place, head is normocephalic atraumatic, oropharynx is markedly crowded, mucous membranes are tacky, no oral pharyngeal erythema Eyes: Other: Pupils are equal and reactive, no scleral icterus, no conjunctival pallor Neck: Other: No JVD, no lymphadenopathy Resp: Other: Clear to auscultation bilaterally, no increased work of breathing Cardio: Other: Regular rate, paced rhythm, 2+ bilateral radial pedal pulses, slight murmur GI: Other: Obese, soft, nontender, midline surgical scar in lower abdomen Skin: Other: Generalized pallor, non jaundice Neuro: Other: Alert oriented x4, speech is clear, no facial asymmetry, no localizing neurologic deficits noted during the course of conversation Extrem: Other: Patient has pain to the left upper humerus with deformity on palpation, distal extremity is neurovascularly intact, 2-3 second cap refill in the fingers, left arm is in the immobilizer Psych: Other: Appropriate mood and affect, pleasant and cooperative, fair judgment and insight Objective Data Vital Signs Vital Signs: Vital Signs - 24 hr 06/09/25 15:22 06/09/25 15:57 06/09/25 20:46 Temperature 98.4 F Pulse Rate 79 Respiratory Rate 16 Blood Pressure 136/58 L Pulse Oximetry 97 94 Oxygen Delivery Room Air Room Air 06/09/25 21:50 06/10/25 05:25 Temperature 97.0 F L 98.4 F Pulse Rate 67 70 Respiratory Rate 18 16 Blood Pressure 165/55 H 141/61 H Pulse Oximetry 90 96 Oxygen Delivery Intake/Output Intake/Output: Intake & Output 06/07/25 06/08/25 06/09/25 06/10/25 23:59 23:59 23:59 23:59 Intake Total 1970 945 860 240 Output Total 2440 2007 8611 2955 [employer] [facility] [employer] [facility] [phone] Meds/Results Medications: Active Medications Generic Name Dose Route Start Last Admin Trade Name Freq PRN Reason Stop Dose Admin Acetaminophen 650 mg 06/05/25 22:15 06/07/25 05:29 Acetaminophen 325 Mg Tablet PO 650 mg Q4H PRN Administration Mild Pain (1-3) or Fever Hydrocodone Bitart/Acetaminophen 1 tab 06/05/25 22:15 06/10/25 09:40 Hydrocodone/Acetaminophen (*Crx) 5-325 Mg Tablet PO 1 tab Q4H PRN Administration Pain Rated 4-10 Aspirin 81 mg 06/06/25 09:00 06/10/25 09:40 Aspirin 81 Mg Enteric Tablet PO 81 mg DAILY GURJIT Administration Enoxaparin Sodium 40 mg 06/09/25 09:00 06/10/25 09:45 Enoxaparin 40 Mg/0.4 Ml Syringe SUB-Q 40 mg DAILY GURJIT Administration Levothyroxine Sodium 75 mcg 06/06/25 08:00 06/10/25 06:13 Levothyroxine Sodium 75 Mcg Tablet PO 75 mcg DAILY@0630 GURJIT Administration Magnesium Oxide 400 mg 06/06/25 09:00 06/10/25 09:39 Magnesium Oxide 400 Mg Tablet PO 400 mg DAILY GURJIT Administration Melatonin 5 mg 06/05/25 23:25 06/09/25 20:46 Melatonin 5 Mg Tablet PO 5 mg HS GURJIT Administration Morphine Sulfate 2 mg 06/07/25 10:28 06/09/25 20:46 Morphine Sulfate (*Crx) 2 Mg/Ml Inj IV PUSH 2 mg Q4H PRN Administration Pain Rated 7-10 Ondansetron HCl 4 mg 06/05/25 22:15 Ondansetron Inj 4 Mg/2 Ml Vial IV PUSH Q4H PRN Nausea Pantoprazole Sodium 40 mg 06/06/25 09:00 06/10/25 09:40 Pantoprazole 40 Mg Tablet PO 40 mg BID GURJIT Administration Polyethylene Glycol 17 gm 06/08/25 12:43 06/09/25 08:53 Polyethylene Glycol 3350 17 Gm Powd.Pack PO 17 gm QAM PRN Administration Constipation Pravastatin Sodium 40 mg 06/06/25 21:00 06/09/25 20:46 Pravastatin Sodium 20 Mg Tablet PO 40 mg HS GURJIT Administration Valsartan 40 mg 06/06/25 09:00 06/10/25 09:40 Valsartan 40 Mg Tablet PO 40 mg DAILY GURJIT Administration Vitamin D 25 mcg 06/06/25 09:00 06/10/25 09:40 Cholecalciferol (Vitamin D3) 25 Mcg (1,000 Units) Tablet PO 25 mcg DAILY GURJIT Administration Radiology Results: ITS Impressions Clavicle X-Ray 06/05/25 19:14 IMPRESSION: Acute fracture within the humerus, without additional fracture deformity identified. Shoulder X-Ray 06/05/25 19:18 IMPRESSION: Acute comminuted fracture of the left humeral neck with overlap of the fracture fragments. Chest X-Ray 06/06/25 15:13 IMPRESSION: 1: Interstitial opacities in both lungs. Differential includes chronic interstitial changes, interstitial edema or interstitial pneumonia. 2. Possible small right-sided pleural effusion versus pleural scarring. 3. Mildly displaced and comminuted acute/subacute fracture of the left humeral neck. Correlate clinically. Labs Labs: Laboratory Results - last 24 hr 06/10/25 05:49 WBC 7.7 RBC 3.43 L Hgb 10.9 L Hct 31.7 L MCV 92.4 MCH 31.8 MCHC 34.4 RDW 12.5 Plt Count 185 MPV 10.3 Immature Gran % (Auto) 0.3 Neut % (Auto) 70.3 Lymph % (Auto) 16.1 L [place] % (Auto) 8.1 Eos % (Auto) 4.8 H Baso % (Auto) 0.4 Lymph # (Auto) 1.25 [place] # (Auto) 0.6 Eos # (Auto) 0.4 H Baso # (Auto) 0.0 Abs Immat Gran (auto) 0.02 Absolute Neuts (auto) 5.4 Absolute Nucleated RBC 0.000 Nucleated RBC % 0.0 Sodium 132 L Potassium 4.0 Chloride 94 L Carbon Dioxide 35 H Anion Gap 3 L BUN 22 H Creatinine 0.94 Estim Creat Clear Calc Not Reportable Estimated GFR 57 L Glucose 113 H Calcium 8.8 Magnesium 2.2 Total Bilirubin 0.5 AST 27 ALT 12 Alkaline Phosphatase 71 Total Protein 6.4 Albumin 3.4 L Quality VTE Prophylaxis VTE prophylaxis: mechanical ordered (SCDs)
[2025-06-10 14:00] VITALS: BP 165/67; PULSE 81; RESP 18; TEMP 37.3; O2SAT 98
[2025-06-10] MEDS: traMADol HCL (*CRX) 50 MG TABLET PO (17:10)
[2025-06-10 22:00] VITALS: BP 158/62; PULSE 83; RESP 18; TEMP 37.2; O2SAT 98
[2025-06-10] MEDS: PRAVASTATIN SODIUM 20 MG TABLET 40 MG PO (22:53)
[2025-06-10] MEDS: MELATONIN 5 MG TABLET PO (22:53)
[2025-06-10] MEDS: ACETAMINOPHEN 325 MG TABLET 650 MG PO (22:53)
[2025-06-11] MEDS: LEVOTHYROXINE SODIUM 75 MCG TABLET PO (05:58)
[2025-06-11] MEDS: traMADol HCL (*CRX) 50 MG TABLET PO (05:58)
[2025-06-11 06:00] VITALS: BP 155/67; PULSE 81; RESP 18; TEMP 37.2; O2SAT 99
[2025-06-11 06:32] LABS: Hematocrit 33.2 % (37.0-47.0); Hemoglobin 11.0 g/dL (12.0-15.0); Immature Granulocyte Percent A 0.4 % (0-0.5); Lymphocytes Absolute Auto 1.15 K/mm3 (0.9-3.2); Mean Corpuscular HGB Conc 33.1 g/dl (32-36); Mean Corpuscular Hemoglobin 31.0 pg (26-34); Mean Corpuscular Volume 93.5 fl (80-100); Nucleated Red Blood Cells Absolute Auto 0.000 K/mm3 (0.0-0.012); Nucleated Red Blood Cells Perc 0.0 % (0.0-0.2); Platelet Count Result 201 k/mm3 (150-375); Red Blood Count 3.55 M/mm3 (4.2-5.4); White Blood Count 7.4 K/mm3 (4.5-10.0)
[2025-06-11 06:53] LABS: Alanine Aminotransferase 12 U/L (6-35); Albumin Level 3.5 g/dL (3.5-5.1); Alkaline Phosphatase 71 U/L (38-126); Anion Gap 4 mmol/L (4-12); Aspartate Amino Transferase 25 U/L (14-36); Bilirubin,Total 0.5 mg/dL (0.2-1.3); Blood Urea Nitrogen 24 mg/dL (7-17); Calcium 8.9 mg/dL (8.4-10.2); Carbon Dioxide 35 mmol/L (22-30); Chloride 94 mmol/L (98-107); Estimated Glomerular Filt Rate 59; Glucose 111 mg/dL (65-110); Magnesium 2.2 mg/dL (1.6-2.3); Potassium 3.8 mmol/L (3.4-5.0); Sodium 133 mmol/L (137-145); Total Protein 6.5 g/dL (6.3-8.2)
[2025-06-11] MEDS: MAGNESIUM OXIDE 400 MG TABLET PO (08:29)
[2025-06-11] MEDS: CHOLECALCIFEROL (VITAMIN D3) 25 MCG (1,000 UNITS) TABLET PO (08:29)
[2025-06-11] MEDS: ASPIRIN 81 MG ENTERIC TABLET PO (08:29)
[2025-06-11] MEDS: PANTOPRAZOLE 40 MG TABLET PO ×2 (08:29→16:46)
[2025-06-11] MEDS: ENOXAPARIN 40 MG/0.4 ML SYRINGE SUB-Q (08:30)
[2025-06-11] MEDS: VALSARTAN 40 MG TABLET PO (08:30)
[2025-06-11] MEDS: ACETAMINOPHEN 325 MG TABLET 650 MG PO (09:35)
--- NOTE | 2025-06-11 13:53 | P.PNIM_ITS ---
Progress Note: A&P Assessment and Plan (1) Closed comminuted left humeral fracture: Qualifiers: Encounter type: initial encounter Humerus Location: shaft Fracture alignment: displaced Qualified Code(s): S42.352A - Displaced comminuted fracture of shaft of humerus, left arm, initial encounter for closed fracture Code(s): S42.352A - Displaced comminuted fracture of shaft of humerus, left arm, initial encounter for closed fracture Status: Acute Assessment and Plan: -medications were reviewed not on blood thinners -evaluate for incidence of hypoglycemia -avoid any sedatives or anxiolytic -will evaluate for any arrhythmias -we evaluate for postural hypotension -imaging reviewed-Acute comminuted fracture of the left humeral neck with overlap of the fracture fragments -physical therapy for balance, gait and strength training after orthopedic evaluation (2) Ground-level fall: Code(s): W18.30XA - Fall on same level, unspecified, initial encounter Status: Acute Assessment and Plan: Closed comminuted left humeral fracture Orthopedics recommends non operative management Multimodal pain management (3) Insomnia disorder: Qualifiers: Insomnia type: unspecified Qualified Code(s): G47.00 - Insomnia, unspecified Code(s): G47.00 - Insomnia, unspecified Status: Acute Assessment and Plan: Continue Melatonin at nighttime Plan DVT prophylaxis on sq Lovenox awaiting placement Subjective Date/time seen: 06/11/25 13:53 Interval history: Comfortable at bedside awaiting placement Review of Systems Review of Systems: 12 systems were reviewed with pertinent positives and negatives per HPI. Except as documented in the HPI, all other systems were reviewed and are negative. Patient has maturing cataracts for which she is supposed to have cataract surgery in the next couple of weeks. She has chronic stress urinary incontinence. And chronic urinary urgency. She denies any dysuria. She has not had any fevers or chills. Exam Narrative: Weight 79.1 kg Const: Other: Obese, appears uncomfortable lying in ER stretcher on her back HENMT: Other: Nasal cannula in place, head is normocephalic atraumatic, oropharynx is markedly crowded, mucous membranes are tacky, no oral pharyngeal erythema Eyes: Other: Pupils are equal and reactive, no scleral icterus, no conjunctival pallor Neck: Other: No JVD, no lymphadenopathy Resp: Other: Clear to auscultation bilaterally, no increased work of breathing Cardio: Other: Regular rate, paced rhythm, 2+ bilateral radial pedal pulses, slight murmur GI: Other: Obese, soft, nontender, midline surgical scar in lower abdomen Skin: Other: Generalized pallor, non jaundice Neuro: Other: Alert oriented x4, speech is clear, no facial asymmetry, no localizing neurologic deficits noted during the course of conversation Extrem: Other: Patient has pain to the left upper humerus with deformity on palpation, distal extremity is neurovascularly intact, 2-3 second cap refill in the fingers, left arm is in the immobilizer Psych: Other: Appropriate mood and affect, pleasant and cooperative, fair judgment and insight Objective Data Vital Signs Vital Signs: Vital Signs - 24 hr 06/10/25 14:00 06/10/25 20:00 06/10/25 22:00 Temperature 99.1 F 98.9 F Pulse Rate 81 83 Respiratory Rate 18 18 Blood Pressure 165/67 H 158/62 H Pulse Oximetry 98 98 Oxygen Delivery Nasal Cannula Oxygen Flow Rate 2 06/11/25 06:00 06/11/25 08:00 Temperature 99 F Pulse Rate 81 Respiratory Rate 18 Blood Pressure 155/67 H Pulse Oximetry 99 Oxygen Delivery Room Air Oxygen Flow Rate Intake/Output Intake/Output: Intake & Output 06/08/25 06/09/25 06/10/25 06/11/25 23:59 23:59 23:59 23:59 Intake Total 676 847 4571 420 Output Total 2975 3750 3850 800 [facility] -[phone] Meds/Results Medications: Active Medications Generic Name Dose Route Start Last Admin Trade Name Aidanq PRN Reason Stop Dose Admin Acetaminophen 650 mg 06/05/25 22:15 06/11/25 09:35 Acetaminophen 325 Mg Tablet PO 650 mg Q4H PRN Administration Mild Pain (1-3) or Fever Aspirin 81 mg 06/06/25 09:00 06/11/25 08:29 Aspirin 81 Mg Enteric Tablet PO 81 mg DAILY GURJIT Administration Enoxaparin Sodium 40 mg 06/09/25 09:00 06/11/25 08:30 Enoxaparin 40 Mg/0.4 Ml Syringe SUB-Q 40 mg DAILY GURJIT Administration Levothyroxine Sodium 75 mcg 06/06/25 08:00 06/11/25 05:58 Levothyroxine Sodium 75 Mcg Tablet PO 75 mcg DAILY@0630 GURJIT Administration Magnesium Oxide 400 mg 06/06/25 09:00 06/11/25 08:29 Magnesium Oxide 400 Mg Tablet PO 400 mg DAILY GURJIT Administration Melatonin 5 mg 06/05/25 23:25 06/10/25 22:53 Melatonin 5 Mg Tablet PO 5 mg HS GURJIT Administration Morphine Sulfate 2 mg 06/07/25 10:28 06/09/25 20:46 Morphine Sulfate (*Crx) 2 Mg/Ml Inj IV PUSH 2 mg Q4H PRN Administration Pain Rated 7-10 Ondansetron HCl 4 mg 06/05/25 22:15 Ondansetron Inj 4 Mg/2 Ml Vial IV PUSH Q4H PRN Nausea Pantoprazole Sodium 40 mg 06/06/25 09:00 06/11/25 08:29 Pantoprazole 40 Mg Tablet PO 40 mg BID GURJIT Administration Polyethylene Glycol 17 gm 06/08/25 12:43 06/10/25 22:58 Polyethylene Glycol 3350 17 Gm Powd.Pack PO 8.5 gm QAM PRN Administration Constipation Pravastatin Sodium 40 mg 06/06/25 21:00 06/10/25 22:53 Pravastatin Sodium 20 Mg Tablet PO 40 mg HS GURJIT Administration Tramadol HCl 50 mg 06/10/25 14:09 06/11/25 05:58 Tramadol Hcl (*Crx) 50 Mg Tablet PO 50 mg BID PRN Administration Pain Rated 4-10 Valsartan 40 mg 06/06/25 09:00 06/11/25 08:30 Valsartan 40 Mg Tablet PO 40 mg DAILY GURJIT Administration Vitamin D 25 mcg 06/06/25 09:00 06/11/25 08:29 Cholecalciferol (Vitamin D3) 25 Mcg (1,000 Units) Tablet PO 25 mcg DAILY GURJIT Administration Radiology Results: ITS Impressions Clavicle X-Ray 06/05/25 19:14 IMPRESSION: Acute fracture within the humerus, without additional fracture deformity identified. Shoulder X-Ray 06/05/25 19:18 IMPRESSION: Acute comminuted fracture of the left humeral neck with overlap of the fracture fragments. Chest X-Ray 06/06/25 15:13 IMPRESSION: 1: Interstitial opacities in both lungs. Differential includes chronic interstitial changes, interstitial edema or interstitial pneumonia. 2. Possible small right-sided pleural effusion versus pleural scarring. 3. Mildly displaced and comminuted acute/subacute fracture of the left humeral neck. Correlate clinically. Labs Labs: Laboratory Results - last 24 hr 06/11/25 06:04 WBC 7.4 RBC 3.55 L Hgb 11.0 L Hct 33.2 L MCV 93.5 MCH 31.0 MCHC 33.1 RDW 12.4 Plt Count 201 MPV 10.0 Immature Gran % (Auto) 0.4 Neut % (Auto) 69.8 Lymph % (Auto) 15.6 L Thomas % (Auto) 9.3 H Eos % (Auto) 4.5 H Baso % (Auto) 0.4 Lymph # (Auto) 1.15 Thomas # (Auto) 0.7 H Eos # (Auto) 0.3 Baso # (Auto) 0.0 Abs Immat Gran (auto) 0.03 Absolute Neuts (auto) 5.1 Absolute Nucleated RBC 0.000 Nucleated RBC % 0.0 Sodium 133 L Potassium 3.8 Chloride 94 L Carbon Dioxide 35 H Anion Gap 4 BUN 24 H Creatinine 0.92 Estim Creat Clear Calc Not Reportable Estimated GFR 59 Glucose 111 H Calcium 8.9 Magnesium 2.2 Total Bilirubin 0.5 AST 25 ALT 12 Alkaline Phosphatase 71 Total Protein 6.5 Albumin 3.5 Quality VTE Prophylaxis VTE prophylaxis: mechanical ordered (SCDs)
[2025-06-11 14:00] VITALS: BP 142/62; PULSE 74; RESP 20; TEMP 36.2; O2SAT 94
[2025-06-11] MEDS: KETOROLAC 15 MG/ML VIAL (*BKC) IV PUSH (17:05)
[2025-06-11] MEDS: MELATONIN 5 MG TABLET PO (21:01)
[2025-06-11] MEDS: PRAVASTATIN SODIUM 20 MG TABLET 40 MG PO (21:01)
[2025-06-11 21:31] VITALS: BP 172/67; PULSE 73; RESP 16; TEMP 36.3; O2SAT 94
[2025-06-11 22:12] VITALS: PULSE 73; RESP 20; O2SAT 91
[2025-06-12] MEDS: KETOROLAC 15 MG/ML VIAL (*BKC) IV PUSH ×3 (05:28→18:24)
[2025-06-12] MEDS: LEVOTHYROXINE SODIUM 75 MCG TABLET PO (05:31)
[2025-06-12 05:43] VITALS: BP 168/78; PULSE 79; RESP 16; TEMP 36.3; O2SAT 94
[2025-06-12] MEDS: PANTOPRAZOLE 40 MG TABLET PO ×2 (08:44→18:24)
[2025-06-12] MEDS: ENOXAPARIN 40 MG/0.4 ML SYRINGE SUB-Q (08:44)
[2025-06-12] MEDS: ASPIRIN 81 MG ENTERIC TABLET PO (08:44)
[2025-06-12] MEDS: VALSARTAN 40 MG TABLET PO (08:44)
[2025-06-12 08:45] VITALS: PULSE 76
[2025-06-12] MEDS: CHOLECALCIFEROL (VITAMIN D3) 25 MCG (1,000 UNITS) TABLET PO (08:45)
[2025-06-12] MEDS: MAGNESIUM OXIDE 400 MG TABLET PO (08:45)
--- NOTE | 2025-06-12 10:23 | P.PNIM_ITS ---
Progress Note: A&P Assessment and Plan (1) Closed comminuted left humeral fracture: Qualifiers: Encounter type: initial encounter Humerus Location: shaft Fracture alignment: displaced Qualified Code(s): S42.352A - Displaced comminuted fracture of shaft of humerus, left arm, initial encounter for closed fracture Code(s): S42.352A - Displaced comminuted fracture of shaft of humerus, left arm, initial encounter for closed fracture Status: Acute Assessment and Plan: -medications were reviewed not on blood thinners -evaluate for incidence of hypoglycemia -avoid any sedatives or anxiolytic -will evaluate for any arrhythmias -we evaluate for postural hypotension -imaging reviewed-Acute comminuted fracture of the left humeral neck with overlap of the fracture fragments -physical therapy for balance, gait and strength training after orthopedic evaluation (2) Ground-level fall: Code(s): W18.30XA - Fall on same level, unspecified, initial encounter Status: Acute Assessment and Plan: Closed comminuted left humeral fracture Orthopedics recommends non operative management Multimodal pain management (3) Insomnia disorder: Qualifiers: Insomnia type: unspecified Qualified Code(s): G47.00 - Insomnia, unspecified Code(s): G47.00 - Insomnia, unspecified Status: Acute Assessment and Plan: Continue Melatonin at nighttime Plan DVT prophylaxis on sq Lovenox awaiting placement Subjective Date/time seen: 06/12/25 10:23 Interval history: Comfortable at bedside awaiting placement Review of Systems Review of Systems: 12 systems were reviewed with pertinent positives and negatives per HPI. Except as documented in the HPI, all other systems were reviewed and are negative. Patient has maturing cataracts for which she is supposed to have cataract surgery in the next couple of weeks. She has chronic stress urinary incontinence. And chronic urinary urgency. She denies any dysuria. She has not had any fevers or chills. Exam Narrative: Weight 79.1 kg Const: Other: Obese, appears uncomfortable lying in ER stretcher on her back HENMT: Other: Nasal cannula in place, head is normocephalic atraumatic, oropharynx is markedly crowded, mucous membranes are tacky, no oral pharyngeal erythema Eyes: Other: Pupils are equal and reactive, no scleral icterus, no conjunctival pallor Neck: Other: No JVD, no lymphadenopathy Resp: Other: Clear to auscultation bilaterally, no increased work of breathing Cardio: Other: Regular rate, paced rhythm, 2+ bilateral radial pedal pulses, slight murmur GI: Other: Obese, soft, nontender, midline surgical scar in lower abdomen Skin: Other: Generalized pallor, non jaundice Neuro: Other: Alert oriented x4, speech is clear, no facial asymmetry, no localizing neurologic deficits noted during the course of conversation Extrem: Other: Patient has pain to the left upper humerus with deformity on palpation, distal extremity is neurovascularly intact, 2-3 second cap refill in the fingers, left arm is in the immobilizer Psych: Other: Appropriate mood and affect, pleasant and cooperative, fair judgment and insight Objective Data Vital Signs Vital Signs: Vital Signs - 24 hr 06/11/25 14:00 06/11/25 20:00 06/11/25 21:31 Temperature 97.1 F L 97.3 F L Pulse Rate 74 73 Respiratory Rate 20 16 Blood Pressure 142/62 H 172/67 H Pulse Oximetry 94 94 Oxygen Delivery Room Air Fraction of Inspired Oxygen 21 06/11/25 22:12 06/12/25 05:43 06/12/25 08:45 Temperature 97.4 F L Pulse Rate 73 79 76 Respiratory Rate 20 16 Blood Pressure 168/78 H Pulse Oximetry 91 94 Oxygen Delivery Room Air Fraction of Inspired Oxygen 21 Intake/Output Intake/Output: Intake & Output 06/09/25 06/10/25 06/11/25 06/12/25 23:59 23:59 23:59 23:59 Intake Total 860 2170 1400 340 Output Total 3750 3850 2400 1400 Balance -2130 -1680 -1000 -1060 Meds/Results Medications: Active Medications Generic Name Dose Route Start Last Admin Trade Name Freq PRN Reason Stop Dose Admin Acetaminophen 650 mg 06/05/25 22:15 06/11/25 09:35 Acetaminophen 325 Mg Tablet PO 650 mg Q4H PRN Administration Mild Pain (1-3) or Fever Amlodipine Besylate 10 mg 06/12/25 09:00 06/12/25 08:45 Amlodipine Besylate 10 Mg Tablet PO 10 mg DAILY GURJIT Administration Aspirin 81 mg 06/06/25 09:00 06/12/25 08:44 Aspirin 81 Mg Enteric Tablet PO 81 mg DAILY GURJIT Administration Carvedilol 3.125 mg 06/12/25 09:00 06/12/25 08:45 Carvedilol 3.125 Mg Tablet PO 3.125 mg Q12HR GURJIT Administration Enoxaparin Sodium 40 mg 06/09/25 09:00 06/12/25 08:44 Enoxaparin 40 Mg/0.4 Ml Syringe SUB-Q 40 mg DAILY GURJIT Administration Ketorolac Tromethamine 15 mg 06/11/25 17:00 06/12/25 05:28 Ketorolac 15 Mg/Ml Vial (*Bkc) IV PUSH 15 mg Q6HR GURJIT Administration Levothyroxine Sodium 75 mcg 06/06/25 08:00 06/12/25 05:31 Levothyroxine Sodium 75 Mcg Tablet PO 75 mcg DAILY@0630 GURJIT Administration Magnesium Oxide 400 mg 06/06/25 09:00 06/12/25 08:45 Magnesium Oxide 400 Mg Tablet PO 400 mg DAILY GURJIT Administration Melatonin 5 mg 06/05/25 23:25 06/11/25 21:01 Melatonin 5 Mg Tablet PO 5 mg HS GURJIT Administration Methocarbamol 500 mg 06/11/25 22:00 06/12/25 05:26 Methocarbamol 500 Mg Tablet PO Not Given Q8HR [facility] Morphine Sulfate 2 mg 06/07/25 10:28 06/09/25 20:46 Morphine Sulfate (*Crx) 2 Mg/Ml Inj IV PUSH 2 mg Q4H PRN Administration Pain Rated 7-10 Ondansetron HCl 4 mg 06/05/25 22:15 Ondansetron Inj 4 Mg/2 Ml Vial IV PUSH Q4H PRN Nausea Pantoprazole Sodium 40 mg 06/06/25 09:00 06/12/25 08:44 Pantoprazole 40 Mg Tablet PO 40 mg BID GURJTI Administration Polyethylene Glycol 17 gm 06/08/25 12:43 06/10/25 22:58 Polyethylene Glycol 3350 17 Gm Powd.Pack PO 8.5 gm QAM PRN Administration Constipation Pravastatin Sodium 40 mg 06/06/25 21:00 06/11/25 21:01 Pravastatin Sodium 20 Mg Tablet PO 40 mg HS GURJIT Administration Tramadol HCl 50 mg 06/10/25 14:09 06/11/25 05:58 Tramadol Hcl (*Crx) 50 Mg Tablet PO 50 mg BID PRN Administration Pain Rated 4-10 Valsartan 40 mg 06/06/25 09:00 06/12/25 08:44 Valsartan 40 Mg Tablet PO 40 mg DAILY GURJIT Administration Vitamin D 25 mcg 06/06/25 09:00 06/12/25 08:45 Cholecalciferol (Vitamin D3) 25 Mcg (1,000 Units) Tablet PO 25 mcg DAILY GURJIT Administration Radiology Results: ITS Impressions Clavicle X-Ray 06/05/25 19:14 IMPRESSION: Acute fracture within the humerus, without additional fracture deformity identified. Shoulder X-Ray 06/05/25 19:18 IMPRESSION: Acute comminuted fracture of the left humeral neck with overlap of the fracture fragments. Chest X-Ray 06/06/25 15:13 IMPRESSION: 1: Interstitial opacities in both lungs. Differential includes chronic interstitial changes, interstitial edema or interstitial pneumonia. 2. Possible small right-sided pleural effusion versus pleural scarring. 3. Mildly displaced and comminuted acute/subacute fracture of the left humeral neck. Correlate clinically. Labs Labs: Laboratory Results - last 24 hr 06/11/25 19:25 POC Capillary Glucose 128 H Quality VTE Prophylaxis VTE prophylaxis: mechanical ordered (SCDs)
[2025-06-12 14:00] VITALS: BP 151/61; PULSE 74; RESP 16; TEMP 36.9; O2SAT 95
[2025-06-12] MEDS: BISACODYL 10 MG SUPPOSITORY RECTAL (18:24)
[2025-06-12 20:50] VITALS: PULSE 74
[2025-06-12] MEDS: MELATONIN 5 MG TABLET PO (20:51)
[2025-06-12] MEDS: PRAVASTATIN SODIUM 20 MG TABLET 40 MG PO (20:51)
[2025-06-12 21:00] VITALS: O2SAT 93
[2025-06-12 21:32] VITALS: BP 140/58; PULSE 74; RESP 14; TEMP 36.4; O2SAT 93
[2025-06-13] VITALS (7 sets, daily range): BP systolic 127–136; BP diastolic 60–64; PULSE 68–77; RESP 14–18; TEMP 36.2–36.8; O2SAT 90–95
[2025-06-13] MEDS: KETOROLAC 15 MG/ML VIAL (*BKC) IV PUSH ×4 (00:36→17:47)
[2025-06-13] MEDS: LEVOTHYROXINE SODIUM 75 MCG TABLET PO (06:05)
[2025-06-13] MEDS: ENOXAPARIN 40 MG/0.4 ML SYRINGE SUB-Q (10:26)
[2025-06-13] MEDS: VALSARTAN 40 MG TABLET PO (10:28)
[2025-06-13] MEDS: PANTOPRAZOLE 40 MG TABLET PO ×2 (10:28→17:47)
[2025-06-13] MEDS: CHOLECALCIFEROL (VITAMIN D3) 25 MCG (1,000 UNITS) TABLET PO (10:28)
[2025-06-13] MEDS: MAGNESIUM OXIDE 400 MG TABLET PO (10:28)
[2025-06-13] MEDS: ASPIRIN 81 MG ENTERIC TABLET PO (10:29)
--- NOTE | 2025-06-13 10:43 | PCNWS ---
Weekly nutritional screen. Patient is tolerating current diabetic diet with adequate intake 75-100% most all meals. No weight loss reported. No nutritional recommendations at this time.
--- NOTE | 2025-06-13 13:41 | PM.IMPN ---
Progress Note: A&P Assessment and Plan (1) Closed comminuted left humeral fracture: Qualifiers: Encounter type: initial encounter Humerus Location: shaft Fracture alignment: displaced Qualified Code(s): S42.352A - Displaced comminuted fracture of shaft of humerus, left arm, initial encounter for closed fracture Code(s): S42.352A - Displaced comminuted fracture of shaft of humerus, left arm, initial encounter for closed fracture Status: Acute Assessment and Plan: -medications were reviewed not on blood thinners -evaluate for incidence of hypoglycemia -avoid any sedatives or anxiolytic -will evaluate for any arrhythmias -we evaluate for postural hypotension -imaging reviewed-Acute comminuted fracture of the left humeral neck with overlap of the fracture fragments -physical therapy for balance, gait and strength training after orthopedic evaluation (2) Ground-level fall: Code(s): W18.30XA - Fall on same level, unspecified, initial encounter Status: Acute Assessment and Plan: Closed comminuted left humeral fracture Orthopedics recommends non operative management Multimodal pain management (3) Insomnia disorder: Qualifiers: Insomnia type: unspecified Qualified Code(s): G47.00 - Insomnia, unspecified Code(s): G47.00 - Insomnia, unspecified Status: Acute Assessment and Plan: Continue Melatonin at nighttime Plan DVT prophylaxis on sq Lovenox awaiting placement Subjective Date/time seen: 06/13/25 13:41 Interval history: Comfortable at bedside awaiting placement Review of Systems Review of Systems: 12 systems were reviewed with pertinent positives and negatives per HPI. Except as documented in the HPI, all other systems were reviewed and are negative. Patient has maturing cataracts for which she is supposed to have cataract surgery in the next couple of weeks. She has chronic stress urinary incontinence. And chronic urinary urgency. She denies any dysuria. She has not had any fevers or chills. Exam Narrative: Weight 79.1 kg Const: Other: Obese, appears uncomfortable lying in ER stretcher on her back HENMT: Other: Nasal cannula in place, head is normocephalic atraumatic, oropharynx is markedly crowded, mucous membranes are tacky, no oral pharyngeal erythema Eyes: Other: Pupils are equal and reactive, no scleral icterus, no conjunctival pallor Neck: Other: No JVD, no lymphadenopathy Resp: Other: Clear to auscultation bilaterally, no increased work of breathing Cardio: Other: Regular rate, paced rhythm, 2+ bilateral radial pedal pulses, slight murmur GI: Other: Obese, soft, nontender, midline surgical scar in lower abdomen Skin: Other: Generalized pallor, non jaundice Neuro: Other: Alert oriented x4, speech is clear, no facial asymmetry, no localizing neurologic deficits noted during the course of conversation Extrem: Other: Patient has pain to the left upper humerus with deformity on palpation, distal extremity is neurovascularly intact, 2-3 second cap refill in the fingers, left arm is in the immobilizer Psych: Other: Appropriate mood and affect, pleasant and cooperative, fair judgment and insight Objective Data Vital Signs Vital Signs: Vital Signs - 24 hr 06/12/25 14:00 06/12/25 20:00 06/12/25 20:50 Temperature 98.4 F Pulse Rate 74 74 Respiratory Rate 16 Blood Pressure 151/61 H Pulse Oximetry 95 Oxygen Delivery Room Air Fraction of Inspired Oxygen 21 06/12/25 21:00 06/12/25 21:32 06/13/25 05:55 Temperature 97.6 F 97.2 F L Pulse Rate 74 74 Respiratory Rate 14 14 Blood Pressure 140/58 L 136/64 Pulse Oximetry 93 93 94 Oxygen Delivery Room Air Fraction of Inspired Oxygen 06/13/25 08:00 06/13/25 10:28 Temperature Pulse Rate 73 73 Respiratory Rate Blood Pressure Pulse Oximetry 93 Oxygen Delivery Room Air Fraction of Inspired Oxygen Intake/Output Intake/Output: Intake & Output 06/10/25 06/11/25 06/12/25 06/13/25 23:59 23:59 23:59 23:59 Intake Total 2170 1400 1920 1340 Output Total 3850 2400 2000 2600 [facility] -1680 -1000 -80 -1260 Meds/Results Medications: Active Medications Generic Name Dose Route Start Last Admin Trade Name Freq PRN Reason Stop Dose Admin Acetaminophen 650 mg 06/05/25 22:15 06/11/25 09:35 Acetaminophen 325 Mg Tablet PO 650 mg Q4H PRN Administration Mild Pain (1-3) or Fever Amlodipine Besylate 10 mg 06/12/25 09:00 06/13/25 10:29 Amlodipine Besylate 10 Mg Tablet PO 10 mg DAILY GURJIT Administration Aspirin 81 mg 06/06/25 09:00 06/13/25 10:29 Aspirin 81 Mg Enteric Tablet PO 81 mg DAILY GURJIT Administration Carvedilol 3.125 mg 06/12/25 09:00 06/13/25 10:28 Carvedilol 3.125 Mg Tablet PO 3.125 mg Q12HR GURJIT Administration Enoxaparin Sodium 40 mg 06/09/25 09:00 06/13/25 10:26 Enoxaparin 40 Mg/0.4 Ml Syringe SUB-Q 40 mg DAILY GURJIT Administration Ketorolac Tromethamine 15 mg 06/11/25 17:00 06/13/25 12:00 Ketorolac 15 Mg/Ml Vial (*Bkc) IV PUSH 15 mg Q6HR GURJIT Administration Levothyroxine Sodium 75 mcg 06/06/25 08:00 06/13/25 06:05 Levothyroxine Sodium 75 Mcg Tablet PO 75 mcg DAILY@0630 GURJIT Administration Magnesium Hydroxide 30 ml 06/12/25 14:59 Magnesium Hydroxide Susp 30 Ml Udc PO QHS PRN Constipation Magnesium Oxide 400 mg 06/06/25 09:00 06/13/25 10:28 Magnesium Oxide 400 Mg Tablet PO 400 mg DAILY GURJIT Administration Melatonin 5 mg 06/05/25 23:25 06/12/25 20:51 Melatonin 5 Mg Tablet PO 5 mg HS GURJIT Administration Methocarbamol 500 mg 06/11/25 22:00 06/13/25 06:05 Methocarbamol 500 Mg Tablet PO 500 mg Q8HR GURJIT Administration Morphine Sulfate 2 mg 06/07/25 10:28 06/09/25 20:46 Morphine Sulfate (*Crx) 2 Mg/Ml Inj IV PUSH 2 mg Q4H PRN Administration Pain Rated 7-10 Ondansetron HCl 4 mg 06/05/25 22:15 Ondansetron Inj 4 Mg/2 Ml Vial IV PUSH Q4H PRN Nausea Pantoprazole Sodium 40 mg 06/06/25 09:00 06/13/25 10:28 Pantoprazole 40 Mg Tablet PO 40 mg BID GURJIT Administration Polyethylene Glycol 17 gm 06/08/25 12:43 06/12/25 11:52 Polyethylene Glycol 3350 17 Gm Powd.Pack PO 17 gm QAM PRN Administration Constipation Pravastatin Sodium 40 mg 06/06/25 21:00 06/12/25 20:51 Pravastatin Sodium 20 Mg Tablet PO 40 mg HS GURJIT Administration Tramadol HCl 50 mg 06/10/25 14:09 06/11/25 05:58 Tramadol Hcl (*Crx) 50 Mg Tablet PO 50 mg BID PRN Administration Pain Rated 4-10 Valsartan 40 mg 06/06/25 09:00 06/13/25 10:28 Valsartan 40 Mg Tablet PO 40 mg DAILY GURJIT Administration Vitamin D 25 mcg 06/06/25 09:00 06/13/25 10:28 Cholecalciferol (Vitamin D3) 25 Mcg (1,000 Units) Tablet PO 25 mcg DAILY GURJIT Administration Radiology Results: ITS Impressions Clavicle X-Ray 06/05/25 19:14 IMPRESSION: Acute fracture within the humerus, without additional fracture deformity identified. Shoulder X-Ray 06/05/25 19:18 IMPRESSION: Acute comminuted fracture of the left humeral neck with overlap of the fracture fragments. Chest X-Ray 06/06/25 15:13 IMPRESSION: 1: Interstitial opacities in both lungs. Differential includes chronic interstitial changes, interstitial edema or interstitial pneumonia. 2. Possible small right-sided pleural effusion versus pleural scarring. 3. Mildly displaced and comminuted acute/subacute fracture of the left humeral neck. Correlate clinically. Labs Labs: Laboratory Results - last 24 hr 06/12/25 19:37 POC Capillary Glucose 130 H Quality VTE Prophylaxis VTE prophylaxis: mechanical ordered (SCDs)
[2025-06-13] MEDS: traMADol HCL (*CRX) 50 MG TABLET PO (15:46)
[2025-06-13] MEDS: PRAVASTATIN SODIUM 20 MG TABLET 40 MG PO (21:25)
[2025-06-13] MEDS: MELATONIN 5 MG TABLET PO (21:25)
[2025-06-14] MEDS: KETOROLAC 15 MG/ML VIAL (*BKC) IV PUSH ×5 (00:38→23:08)
[2025-06-14 06:00] VITALS: BP 135/62; PULSE 69; RESP 20; TEMP 36.9; O2SAT 95
[2025-06-14] MEDS: LEVOTHYROXINE SODIUM 75 MCG TABLET PO (06:20)
[2025-06-14 08:00] VITALS: PULSE 70; O2SAT 96
[2025-06-14 09:13] VITALS: PULSE 70
[2025-06-14] MEDS: MAGNESIUM OXIDE 400 MG TABLET PO (09:13)
[2025-06-14] MEDS: ASPIRIN 81 MG ENTERIC TABLET PO (09:13)
[2025-06-14] MEDS: VALSARTAN 40 MG TABLET PO (09:13)
[2025-06-14] MEDS: PANTOPRAZOLE 40 MG TABLET PO ×2 (09:13→17:39)
[2025-06-14] MEDS: CHOLECALCIFEROL (VITAMIN D3) 25 MCG (1,000 UNITS) TABLET PO (09:13)
--- NOTE | 2025-06-14 13:07 | P.PNIM_ITS ---
Progress Note: A&P Assessment and Plan (1) Closed comminuted left humeral fracture: Qualifiers: Encounter type: initial encounter Humerus Location: shaft Fracture alignment: displaced Qualified Code(s): S42.352A - Displaced comminuted fracture of shaft of humerus, left arm, initial encounter for closed fracture Code(s): S42.352A - Displaced comminuted fracture of shaft of humerus, left arm, initial encounter for closed fracture Status: Acute Assessment and Plan: -medications were reviewed not on blood thinners -evaluate for incidence of hypoglycemia -avoid any sedatives or anxiolytic -will evaluate for any arrhythmias -we evaluate for postural hypotension -imaging reviewed-Acute comminuted fracture of the left humeral neck with overlap of the fracture fragments -physical therapy for balance, gait and strength training after orthopedic evaluation (2) Ground-level fall: Code(s): W18.30XA - Fall on same level, unspecified, initial encounter Status: Acute Assessment and Plan: Closed comminuted left humeral fracture Orthopedics recommends non operative management Multimodal pain management (3) Insomnia disorder: Qualifiers: Insomnia type: unspecified Qualified Code(s): G47.00 - Insomnia, unspecified Code(s): G47.00 - Insomnia, unspecified Status: Acute Assessment and Plan: Continue Melatonin at nighttime Plan DVT prophylaxis on sq Lovenox awaiting placement Subjective Date/time seen: 06/14/25 13:07 Interval history: Comfortable at bedside awaiting placement Review of Systems Review of Systems: 12 systems were reviewed with pertinent positives and negatives per HPI. Except as documented in the HPI, all other systems were reviewed and are negative. Patient has maturing cataracts for which she is supposed to have cataract surgery in the next couple of weeks. She has chronic stress urinary incontinence. And chronic urinary urgency. She denies any dysuria. She has not had any fevers or chills. Exam Narrative: Weight 79.1 kg Const: Other: Obese, appears uncomfortable lying in ER stretcher on her back HENMT: Other: Nasal cannula in place, head is normocephalic atraumatic, oropharynx is markedly crowded, mucous membranes are tacky, no oral pharyngeal erythema Eyes: Other: Pupils are equal and reactive, no scleral icterus, no conjunctival pallor Neck: Other: No JVD, no lymphadenopathy Resp: Other: Clear to auscultation bilaterally, no increased work of breathing Cardio: Other: Regular rate, paced rhythm, 2+ bilateral radial pedal pulses, slight murmur GI: Other: Obese, soft, nontender, midline surgical scar in lower abdomen Skin: Other: Generalized pallor, non jaundice Neuro: Other: Alert oriented x4, speech is clear, no facial asymmetry, no localizing neurologic deficits noted during the course of conversation Extrem: Other: Patient has pain to the left upper humerus with deformity on palpation, distal extremity is neurovascularly intact, 2-3 second cap refill in the fingers, left arm is in the immobilizer Psych: Other: Appropriate mood and affect, pleasant and cooperative, fair judgment and insight Objective Data Vital Signs Vital Signs: Vital Signs - 24 hr 06/13/25 14:00 06/13/25 20:00 06/13/25 21:22 Temperature 97.7 F Pulse Rate 68 Respiratory Rate 18 Blood Pressure 135/60 Pulse Oximetry 94 90 Oxygen Delivery Room Air Room Air Fraction of Inspired Oxygen 21 06/13/25 21:24 06/13/25 22:00 06/14/25 06:00 Temperature 98.3 F 98.5 F Pulse Rate 75 77 69 Respiratory Rate 18 20 Blood Pressure 127/60 135/62 Pulse Oximetry 95 95 Oxygen Delivery Fraction of Inspired Oxygen 06/14/25 09:13 Temperature Pulse Rate 70 Respiratory Rate Blood Pressure Pulse Oximetry Oxygen Delivery Fraction of Inspired Oxygen Intake/Output Intake/Output: Intake & Output 06/11/25 06/12/25 06/13/25 06/14/25 23:59 23:59 23:59 23:59 Intake Total 1400 1920 1820 200 Output Total 2400 2000 2600 Balance -1000 -80 -780 200 Meds/Results Medications: Active Medications Generic Name Dose Route Start Last Admin Trade Name Freq PRN Reason Stop Dose Admin Acetaminophen 650 mg 06/05/25 22:15 06/11/25 09:35 Acetaminophen 325 Mg Tablet PO 650 mg Q4H PRN Administration Mild Pain (1-3) or Fever Amlodipine Besylate 10 mg 06/12/25 09:00 06/14/25 09:13 Amlodipine Besylate 10 Mg Tablet PO 10 mg DAILY GURJIT Administration Aspirin 81 mg 06/06/25 09:00 06/14/25 09:13 Aspirin 81 Mg Enteric Tablet PO 81 mg DAILY GURJIT Administration Carvedilol 3.125 mg 06/12/25 09:00 06/14/25 09:13 Carvedilol 3.125 Mg Tablet PO 3.125 mg Q12HR GURJIT Administration Enoxaparin Sodium 40 mg 06/09/25 09:00 06/14/25 09:12 Enoxaparin 40 Mg/0.4 Ml Syringe SUB-Q Not Given DAILY GURJIT Ketorolac Tromethamine 15 mg 06/11/25 17:00 06/14/25 11:47 Ketorolac 15 Mg/Ml Vial (*Bkc) IV PUSH 15 mg Q6HR GURJIT Administration Levothyroxine Sodium 75 mcg 06/06/25 08:00 06/14/25 06:20 Levothyroxine Sodium 75 Mcg Tablet PO 75 mcg DAILY@0630 GURJIT Administration Magnesium Hydroxide 30 ml 06/12/25 14:59 Magnesium Hydroxide Susp 30 Ml Udc PO QHS PRN Constipation Magnesium Oxide 400 mg 06/06/25 09:00 06/14/25 09:13 Magnesium Oxide 400 Mg Tablet PO 400 mg DAILY GURJIT Administration Melatonin 5 mg 06/05/25 23:25 06/13/25 21:25 Melatonin 5 Mg Tablet PO 5 mg HS [facility] Administration Methocarbamol 500 mg 06/11/25 22:00 06/14/25 12:59 Methocarbamol 500 Mg Tablet PO 500 mg Q8HR GURJIT Administration Morphine Sulfate 2 mg 06/07/25 10:28 06/09/25 20:46 Morphine Sulfate (*Crx) 2 Mg/Ml Inj IV PUSH 2 mg Q4H PRN Administration Pain Rated 7-10 Ondansetron HCl 4 mg 06/05/25 22:15 Ondansetron Inj 4 Mg/2 Ml Vial IV PUSH Q4H PRN Nausea Pantoprazole Sodium 40 mg 06/06/25 09:00 06/14/25 09:13 Pantoprazole 40 Mg Tablet PO 40 mg BID GURJIT Administration Polyethylene Glycol 17 gm 06/08/25 12:43 06/12/25 11:52 Polyethylene Glycol 3350 17 Gm Powd.Pack PO 17 gm QAM PRN Administration Constipation Pravastatin Sodium 40 mg 06/06/25 21:00 06/13/25 21:25 Pravastatin Sodium 20 Mg Tablet PO 40 mg HS GURJIT Administration Tramadol HCl 50 mg 06/10/25 14:09 06/13/25 15:46 Tramadol Hcl (*Crx) 50 Mg Tablet PO 50 mg BID PRN Administration Pain Rated 4-10 Valsartan 40 mg 06/06/25 09:00 06/14/25 09:13 Valsartan 40 Mg Tablet PO 40 mg DAILY GURJIT Administration Vitamin D 25 mcg 06/06/25 09:00 06/14/25 09:13 Cholecalciferol (Vitamin D3) 25 Mcg (1,000 Units) Tablet PO 25 mcg DAILY GURJIT Administration Radiology Results: ITS Impressions Clavicle X-Ray 06/05/25 19:14 IMPRESSION: Acute fracture within the humerus, without additional fracture deformity identified. Shoulder X-Ray 06/05/25 19:18 IMPRESSION: Acute comminuted fracture of the left humeral neck with overlap of the fracture fragments. Chest X-Ray 06/06/25 15:13 IMPRESSION: 1: Interstitial opacities in both lungs. Differential includes chronic interstitial changes, interstitial edema or interstitial pneumonia. 2. Possible small right-sided pleural effusion versus pleural scarring. 3. Mildly displaced and comminuted acute/subacute fracture of the left humeral neck. Correlate clinically. Quality VTE Prophylaxis VTE prophylaxis: mechanical ordered (SCDs)
[2025-06-14 13:59] VITALS: BP 120/47; PULSE 69; RESP 16; TEMP 36.6; O2SAT 97
[2025-06-14 20:18] VITALS: BP 140/60; PULSE 70; RESP 16; TEMP 36.8; O2SAT 96
[2025-06-14] MEDS: MELATONIN 5 MG TABLET PO (22:07)
[2025-06-14] MEDS: PRAVASTATIN SODIUM 20 MG TABLET 40 MG PO (22:07)
[2025-06-15] VITALS (8 sets, daily range): BP systolic 122–138; BP diastolic 45–65; PULSE 68–71; RESP 14–17; TEMP 36.1–36.3; O2SAT 95–98
[2025-06-15] MEDS: KETOROLAC 15 MG/ML VIAL (*BKC) IV PUSH ×3 (06:10→21:22)
[2025-06-15] MEDS: LEVOTHYROXINE SODIUM 75 MCG TABLET PO (06:10)
[2025-06-15 06:30] LABS: Hematocrit 31.9 % (37.0-47.0); Hemoglobin 10.9 g/dL (12.0-15.0); Immature Granulocyte Percent A 0.4 % (0-0.5); Lymphocytes Absolute Auto 1.46 K/mm3 (0.9-3.2); Mean Corpuscular HGB Conc 34.2 g/dl (32-36); Mean Corpuscular Hemoglobin 31.2 pg (26-34); Mean Corpuscular Volume 91.4 fl (80-100); Nucleated Red Blood Cells Absolute Auto 0.000 K/mm3 (0.0-0.012); Nucleated Red Blood Cells Perc 0.0 % (0.0-0.2); Platelet Count Result 259 k/mm3 (150-375); Red Blood Count 3.49 M/mm3 (4.2-5.4); White Blood Count 9.1 K/mm3 (4.5-10.0)
[2025-06-15 07:00] LABS: Alanine Aminotransferase 22 U/L (6-35); Albumin Level 3.5 g/dL (3.5-5.1); Alkaline Phosphatase 85 U/L (38-126); Anion Gap 6 mmol/L (4-12); Aspartate Amino Transferase 32 U/L (14-36); Bilirubin,Total 0.5 mg/dL (0.2-1.3); Blood Urea Nitrogen 43 mg/dL (7-17); Calcium 8.6 mg/dL (8.4-10.2); Carbon Dioxide 29 mmol/L (22-30); Chloride 97 mmol/L (98-107); Estimated Glomerular Filt Rate 39; Glucose 99 mg/dL (65-110); Magnesium 2.4 mg/dL (1.6-2.3); Potassium 4.2 mmol/L (3.4-5.0); Sodium 132 mmol/L (137-145); Total Protein 6.4 g/dL (6.3-8.2)
[2025-06-15] MEDS: MAGNESIUM OXIDE 400 MG TABLET PO (08:42)
[2025-06-15] MEDS: ENOXAPARIN 40 MG/0.4 ML SYRINGE SUB-Q (08:43)
[2025-06-15] MEDS: CHOLECALCIFEROL (VITAMIN D3) 25 MCG (1,000 UNITS) TABLET PO (08:43)
[2025-06-15] MEDS: VALSARTAN 40 MG TABLET PO (08:43)
[2025-06-15] MEDS: ASPIRIN 81 MG ENTERIC TABLET PO (08:43)
[2025-06-15] MEDS: PANTOPRAZOLE 40 MG TABLET PO ×2 (08:43→16:31)
[2025-06-15 12:10] LABS: Add Urine Microscopic? YES; Appearance Urine Turbid (Clear); Glucose Urine UA Negative (Negative); Leukocyte Esterase Ur 3+ LEU/UL (Negative); Nitrate Urine Negative (Negative); Non Pathogenic Casts 0-2; Specific Grav Ur 1.011 (1.001-1.035)
--- NOTE | 2025-06-15 12:45 | P.PNIM_ITS ---
Progress Note: A&P Assessment and Plan (1) Closed comminuted left humeral fracture: Qualifiers: Encounter type: initial encounter Fracture alignment: displaced Humerus Location: shaft Qualified Code(s): S42.352A - Displaced comminuted fracture of shaft of humerus, left arm, initial encounter for closed fracture Code(s): S42.352A - Displaced comminuted fracture of shaft of humerus, left arm, initial encounter for closed fracture Status: Acute Assessment and Plan: * medications were reviewed not on blood thinners * evaluate for incidence of hypoglycemia * avoid any sedatives or anxiolytic * will evaluate for any arrhythmias * we evaluate for postural hypotension * imaging reviewed-Acute comminuted fracture of the left humeral neck with overlap of the fracture fragments * physical therapy for balance, gait and strength training after orthopedic evaluation * Orthopedic consult * NWB * Pain control, Ice * CC for rehab placement * Initially placed at [facility] but insurance denied (2) Dysuria: Code(s): R30.0 - Dysuria Status: Acute Assessment and Plan: * UA: >100 WBC, 3+ leukocyte esterase, 2+ blood * UC obtained on 06/15 * No previous micro * started on Rocephin (3) Ground-level fall: Code(s): W18.30XA - Fall on same level, unspecified, initial encounter Status: Acute Assessment and Plan: * Closed comminuted left humeral fracture * Orthopedics recommends non operative management * Multimodal pain management (4) Insomnia disorder: Qualifiers: Insomnia type: unspecified Qualified Code(s): G47.00 - Insomnia, unspecified Code(s): G47.00 - Insomnia, unspecified Status: Acute Assessment and Plan: * Continue Melatonin at nighttime Plan DVT prophylaxis on sq Lovenox awaiting placement Subjective Date/time seen: 06/15/25 12:45 Interval history: 79-year-old female with a past medical history of aortic valve stenosis status post TAVR, heart block following valve replacement requiring dual chamber pacemaker, obstructive sleep apnea non adherent to CPAP therapy, hepatic steatosis, 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 06/15/2025 Patient sitting comfortably at bedside during examination. Patient was originally placed at [facility] but insurance has denied authorization, will work care coordination regarding placement. Patient also endorsing some dysuria, will obtain urinalysis/culture to rule out UTI - will start on Rocephin. Patient otherwise stable feels okay. Review of Systems Review of Systems: 12 systems were reviewed with pertinent positives and negatives per HPI. Except as documented in the HPI, all other systems were reviewed and are negative. Patient has maturing cataracts for which she is supposed to have cataract surgery in the next couple of weeks. She has chronic stress urinary incontinence. And chronic urinary urgency. She denies any dysuria. She has not had any fevers or chills. Exam Narrative: Weight 79.1 kg Const: Other: Obese, appears uncomfortable lying in ER stretcher on her back HENMT: Other: Nasal cannula in place, head is normocephalic atraumatic, oropharynx is markedly crowded, mucous membranes are tacky, no oral pharyngeal erythema Eyes: Other: Pupils are equal and reactive, no scleral icterus, no conjunctival pallor Neck: Other: No JVD, no lymphadenopathy Resp: Other: Clear to auscultation bilaterally, no increased work of breathing Cardio: Other: Regular rate, paced rhythm, 2+ bilateral radial pedal pulses, slight murmur GI: Other: Obese, soft, nontender, midline surgical scar in lower abdomen Skin: Other: Generalized pallor, non jaundice Neuro: Other: Alert oriented x4, speech is clear, no facial asymmetry, no localizing neurologic deficits noted during the course of conversation Extrem: Other: Patient has pain to the left upper humerus with deformity on palpation, distal extremity is neurovascularly intact, 2-3 second cap refill in the fingers, left arm is in the immobilizer Psych: Other: Appropriate mood and affect, pleasant and cooperative, fair judgment and insight Objective Data Vital Signs Vital Signs: Vital Signs - 24 hr 06/14/25 13:59 06/14/25 14:32 06/14/25 20:00 Temperature 97.9 F Pulse Rate 69 Respiratory Rate 16 Blood Pressure 120/47 L Pulse Oximetry 97 Oxygen Delivery Room Air Room Air 06/14/25 20:18 06/15/25 05:23 06/15/25 08:00 Temperature 98.3 F 97.0 F L Pulse Rate 70 71 71 Respiratory Rate 16 16 Blood Pressure 140/60 138/65 Pulse Oximetry 96 96 97 Oxygen Delivery Room Air 06/15/25 08:43 Temperature Pulse Rate 71 Respiratory Rate Blood Pressure Pulse Oximetry Oxygen Delivery Intake/Output Intake/Output: Intake & Output 06/12/25 06/13/25 06/14/25 06/15/25 23:59 23:59 23:59 23:59 Intake Total 1919 1820 780 240 Output Total 1999 2599 Balance -80 -780 780 240 Meds/Results Medications: Active Medications Generic Name Dose Route Start Last Admin Trade Name Freq PRN Reason Stop Dose Admin Acetaminophen 650 mg 06/05/25 22:15 06/11/25 09:35 Acetaminophen 325 Mg Tablet PO 650 mg Q4H PRN Administration Mild Pain (1-3) or Fever Amlodipine Besylate 10 mg 06/12/25 09:00 06/15/25 08:42 Amlodipine Besylate 10 Mg Tablet PO 10 mg DAILY GURJIT Administration Aspirin 81 mg 06/06/25 09:00 06/15/25 08:43 Aspirin 81 Mg Enteric Tablet PO 81 mg DAILY GURJIT Administration Carvedilol 3.125 mg 06/12/25 09:00 06/15/25 08:43 Carvedilol 3.125 Mg Tablet PO 3.125 mg Q12HR GURJIT Administration Enoxaparin Sodium 40 mg 06/09/25 09:00 06/15/25 08:43 Enoxaparin 40 Mg/0.4 Ml Syringe SUB-Q 40 mg DAILY GURJIT Administration Levothyroxine Sodium 75 mcg 06/06/25 08:00 06/15/25 06:10 Levothyroxine Sodium 75 Mcg Tablet PO 75 mcg DAILY@0630 GURJIT Administration Magnesium Hydroxide 30 ml 06/12/25 14:59 Magnesium Hydroxide Susp 30 Ml Udc PO QHS PRN Constipation Magnesium Oxide 400 mg 06/06/25 09:00 06/15/25 08:42 Magnesium Oxide 400 Mg Tablet PO 400 mg DAILY GURJIT Administration Melatonin 5 mg 06/05/25 23:25 06/14/25 22:07 Melatonin 5 Mg Tablet PO 5 mg HS GURJIT Administration Methocarbamol 500 mg 06/11/25 22:00 06/15/25 06:10 Methocarbamol 500 Mg Tablet PO 500 mg Q8HR GURJIT Administration Morphine Sulfate 2 mg 06/07/25 10:28 06/09/25 20:46 Morphine Sulfate (*Crx) 2 Mg/Ml Inj IV PUSH 2 mg Q4H PRN Administration Pain Rated 7-10 Ondansetron HCl 4 mg 06/05/25 22:15 Ondansetron Inj 4 Mg/2 Ml Vial IV PUSH Q4H PRN Nausea Pantoprazole Sodium 40 mg 06/06/25 09:00 06/15/25 08:43 Pantoprazole 40 Mg Tablet PO 40 mg BID GURJIT Administration Polyethylene Glycol 17 gm 06/08/25 12:43 06/12/25 11:52 Polyethylene Glycol 3350 17 Gm Powd.Pack PO 17 gm QAM PRN Administration Constipation Pravastatin Sodium 40 mg 06/06/25 21:00 06/14/25 22:07 Pravastatin Sodium 20 Mg Tablet PO 40 mg HS GURJIT Administration Tramadol HCl 50 mg 06/10/25 14:09 06/13/25 15:46 Tramadol Hcl (*Crx) 50 Mg Tablet PO 50 mg BID PRN Administration Pain Rated 4-10 Valsartan 40 mg 06/06/25 09:00 06/15/25 08:43 Valsartan 40 Mg Tablet PO 40 mg DAILY GURJIT Administration Vitamin D 25 mcg 06/06/25 09:00 06/15/25 08:43 Cholecalciferol (Vitamin D3) 25 Mcg (1,000 Units) Tablet PO 25 mcg DAILY GURJIT Administration Radiology Results: ITS Impressions Clavicle X-Ray 06/05/25 19:14 IMPRESSION: Acute fracture within the humerus, without additional fracture deformity identified. Shoulder X-Ray 06/05/25 19:18 IMPRESSION: Acute comminuted fracture of the left humeral neck with overlap of the fracture fragments. Chest X-Ray 06/06/25 15:13 IMPRESSION: 1: Interstitial opacities in both lungs. Differential includes chronic interstitial changes, interstitial edema or interstitial pneumonia. 2. Possible small right-sided pleural effusion versus pleural scarring. 3. Mildly displaced and comminuted acute/subacute fracture of the left humeral neck. Correlate clinically. Labs Labs: Laboratory Results - last 24 hr 06/15/25 06/15/25 05:57 11:55 WBC 9.1 RBC 3.49 L Hgb 10.9 L Hct 31.9 L MCV 91.4 MCH 31.2 MCHC 34.2 RDW 12.9 Plt Count 259 MPV 9.9 Immature Gran % (Auto) 0.4 Neut % (Auto) 68.8 Lymph % (Auto) 16.0 L Harding % (Auto) 8.1 Eos % (Auto) 6.2 H Baso % (Auto) 0.5 Lymph # (Auto) 1.46 Harding # (Auto) 0.7 H Eos # (Auto) 0.6 H Baso # (Auto) 0.1 Abs Immat Gran (auto) 0.04 H Absolute Neuts (auto) 6.3 Absolute Nucleated RBC 0.000 Nucleated RBC % 0.0 Sodium 132 L Potassium 4.2 Chloride 97 L Carbon Dioxide 29 Anion Gap 6 BUN 43 H D Creatinine 1.32 H Estim Creat Clear Calc Not Reportable Estimated GFR 39 L Glucose 99 Calcium 8.6 Magnesium 2.4 H Total Bilirubin 0.5 AST 32 ALT 22 Alkaline Phosphatase 85 Total Protein 6.4 Albumin 3.5 Urine Color Yellow Urine Appearance Turbid H Urine pH 5.5 Ur Specific Declo 1.011 Urine Protein 1+ H Urine Glucose (UA) Negative Urine Ketones Negative Ur Blood (Man) 2+ H Urine Nitrate Negative Urine Bilirubin Negative Urine Urobilinogen 1.0 Leukocyte Esterase Rfl 3+ H Urine RBC 0-2 Urine WBC >100 H Ur Squamous Epith Cells None seen Urine Bacteria None seen Urine Casts 0-2 Quality VTE Prophylaxis VTE prophylaxis: mechanical ordered (SCDs)
[2025-06-15] MEDS: cefTRIAXone 2 GM in SODIUM CHLORIDE 0.9% IV 100 ML 200 ML IVPB (13:12)
[2025-06-15] MEDS: MELATONIN 5 MG TABLET PO (21:23)
[2025-06-15] MEDS: PRAVASTATIN SODIUM 20 MG TABLET 40 MG PO (21:23)
[2025-06-16 05:28] VITALS: BP 136/52; PULSE 69; RESP 14; TEMP 36.1; O2SAT 96
[2025-06-16] MEDS: LEVOTHYROXINE SODIUM 75 MCG TABLET PO (05:42)
[2025-06-16] MEDS: PANTOPRAZOLE 40 MG TABLET PO ×2 (08:25→17:14)
[2025-06-16] MEDS: ASPIRIN 81 MG ENTERIC TABLET PO (08:25)
[2025-06-16] MEDS: CHOLECALCIFEROL (VITAMIN D3) 25 MCG (1,000 UNITS) TABLET PO (08:25)
[2025-06-16] MEDS: MAGNESIUM OXIDE 400 MG TABLET PO (08:25)
[2025-06-16] MEDS: ENOXAPARIN 40 MG/0.4 ML SYRINGE SUB-Q (08:25)
[2025-06-16] MEDS: VALSARTAN 40 MG TABLET PO (08:25)
--- NOTE | 2025-06-16 12:21 | PM.PNORT ---
Progress Note: A&P Assessment and Plan (1) Closed comminuted left humeral fracture: Qualifiers: Encounter type: subsequent encounter Fracture alignment: displaced Fracture healing: with routine healing Humerus Location: shaft Qualified Code(s): S42.352D - Displaced comminuted fracture of shaft of humerus, left arm, subsequent encounter for fracture with routine healing <DIANE Woods - Last Filed: 06/16/25 13:02> Code(s): S42.352A - Displaced comminuted fracture of shaft of humerus, left arm, initial encounter for closed fracture <DIANE Woods - Last Filed: 06/16/25 13:02> Status: Acute <DIANE Woods - Last Filed: 06/16/25 13:02> Assessment and Plan: 11 days status post left proximal humerus fracture. Patient with improvement in pain. Able to ambulate with therapy. Radiographs of the shoulder yesterday show well-maintained alignment. Humeral head located. On exam she has ecchymosis and swelling consistent with her fracture. She is neurovascular intact. Discussed with patient. Surgical treatment with implants and internal fixation contraindicated given her history of UTI. also with well-maintained alignment on radiographs. Continue with sling immobilization. Continue therapy. May start pendulum exercises. No active motion of the shoulder until the 5 week brian. Okay for rehab. Follow up in the orthopedic office in 1 month. <Evan Sosa MD - Last Filed: 06/16/25 12:59> Subjective Subjective Date/Time Seen: 06/16/25 12:21 <DIANE Woods - Last Filed: 06/16/25 13:02> Principal diagnosis: Left proximal humerus fracture <Evan Sosa MD - Last Filed: 06/16/25 12:59> Interval history: Patient sitting up in chair. Reports some improvement in pain. No new concerns. Asked about ecchymosis about the shoulder <DIANE Woods - Last Filed: 06/16/25 13:02> Patient sitting up in chair. Reports some improvement in pain. No new concerns. asked about ecchymosis about the shoulder <Evan Sosa MD - Last Filed: 06/16/25 12:59> Exam Const: General: comfortable and no acute distress <Evan Sosa MD - Last Filed: 06/16/25 12:59> Neck: Neck: supple and no JVD <Evan Sosa MD - Last Filed: 06/16/25 12:59> Resp: Effort & Inspection: normal respiratory effort <Evan Sosa MD - Last Filed: 06/16/25 12:59> Neuro: General: gait normal <Evan Sosa MD - Last Filed: 06/16/25 12:59> Cognition (Neuro): normal cognition <Evan Sosa MD - Last Filed: 06/16/25 12:59> Speech: normal speech <Evan Sosa MD - Last Filed: 06/16/25 12:59> Extrem: Left upper extremity: shoulder/upper arm tenderness of the proximal humerus, axillary nerve sensory function normal, abnormal ROM held in an abnormal fashion in ADduction, ecchymosis ( diffuse shoulder) and other ( ecchymosis left shoulder consistent with fracture. Small anterior hematoma. Neurovascularly intact. Muscle soft.); no lacerations and no deformity, elbow/forearm normal to inspection, swelling and abnormal ROM held in an abnormal fashion in flexion; no tenderness, wrist normal to inspection and normal ROM; no tenderness and hand normal to inspection, normal capillary refill, neuromotor exam normal, neurosensory exam normal and tenderness <Evan Sosa MD - Last Filed: 06/16/25 12:59> Psych: Mental Status: mental status grossly normal <Evan Sosa MD - Last Filed: 06/16/25 12:59> Affect: normal affect <Evan Sosa MD - Last Filed: 06/16/25 12:59> Objective Data Vital Signs Vital Signs: Vital Signs - 24 hr 06/15/25 13:22 06/15/25 20:00 06/15/25 21:23 Temperature 36.3 C L Pulse Rate 70 69 68 Respiratory Rate 17 14 Blood Pressure 122/45 L Pulse Oximetry 98 95 Oxygen Delivery Room Air Fraction of Inspired Oxygen 21 06/15/25 21:41 06/15/25 23:16 06/16/25 05:28 Temperature 36.2 C L 36.1 C L Pulse Rate 69 69 Respiratory Rate 14 14 Blood Pressure 132/52 L 136/52 L Pulse Oximetry 95 95 96 Oxygen Delivery Room Air Fraction of Inspired Oxygen <DIANE Woods - Last Filed: 06/16/25 13:02> Intake/Output Intake/Output: Intake & Output 06/13/25 06/14/25 06/15/25 06/16/25 23:59 23:59 23:59 23:59 Intake Total 1820 780 580 340 Output Total 2600 700 Balance -780 780 580 -360 <DIANE Woods - Last Filed: 06/16/25 13:02> Meds/Results Medications: Active Medications Generic Name Dose Route Start Last Admin Trade Name Freq PRN Reason Stop Dose Admin Acetaminophen 650 mg 06/05/25 22:15 06/11/25 09:35 Acetaminophen 325 Mg Tablet PO 650 mg Q4H PRN Administration Mild Pain (1-3) or Fever Amlodipine Besylate 10 mg 06/12/25 09:00 06/16/25 08:25 Amlodipine Besylate 10 Mg Tablet PO 10 mg DAILY GURJIT Administration Aspirin 81 mg 06/06/25 09:00 06/16/25 08:25 Aspirin 81 Mg Enteric Tablet PO 81 mg DAILY GURJIT Administration Carvedilol 3.125 mg 06/12/25 09:00 06/16/25 08:24 Carvedilol 3.125 Mg Tablet PO 3.125 mg Q12HR GURJIT Administration Enoxaparin Sodium 40 mg 06/09/25 09:00 06/16/25 08:25 Enoxaparin 40 Mg/0.4 Ml Syringe SUB-Q 40 mg DAILY GURJIT Administration Ceftriaxone Sodium 2 gm/ 100 mls @ 200 mls/hr 06/15/25 14:00 06/15/25 13:42 Sodium Chloride IVPB Infused Q24H GURJIT Infusion Ketorolac Tromethamine 15 mg 06/15/25 14:02 06/15/25 21:22 Ketorolac 15 Mg/Ml Vial (*Bkc) IV PUSH 06/16/25 17:00 15 mg Q6H PRN Administration Pain Rated 4-6 Levothyroxine Sodium 75 mcg 06/06/25 08:00 06/16/25 05:42 Levothyroxine Sodium 75 Mcg Tablet PO 75 mcg DAILY@0630 GURJIT Administration Magnesium Hydroxide 30 ml 06/12/25 14:59 Magnesium Hydroxide Susp 30 Ml Udc PO QHS PRN Constipation Magnesium Oxide 400 mg 06/06/25 09:00 06/16/25 08:25 Magnesium Oxide 400 Mg Tablet PO 400 mg DAILY UGRJIT Administration Melatonin 5 mg 06/05/25 23:25 06/15/25 21:23 Melatonin 5 Mg Tablet PO 5 mg HS GURJIT Administration Methocarbamol 500 mg 06/11/25 22:00 06/16/25 05:42 Methocarbamol 500 Mg Tablet PO 500 mg Q8HR GURJIT Administration Morphine Sulfate 2 mg 06/07/25 10:28 06/09/25 20:46 Morphine Sulfate (*Crx) 2 Mg/Ml Inj IV PUSH 2 mg Q4H PRN Administration Pain Rated 7-10 Ondansetron HCl 4 mg 06/05/25 22:15 Ondansetron Inj 4 Mg/2 Ml Vial IV PUSH Q4H PRN Nausea Pantoprazole Sodium 40 mg 06/06/25 09:00 06/16/25 08:25 Pantoprazole 40 Mg Tablet PO 40 mg BID GURJIT Administration Polyethylene Glycol 17 gm 06/08/25 12:43 06/12/25 11:52 Polyethylene Glycol 3350 17 Gm Powd.Pack PO 17 gm QAM PRN Administration Constipation Pravastatin Sodium 40 mg 06/06/25 21:00 06/15/25 21:23 Pravastatin Sodium 20 Mg Tablet PO 40 mg HS GURJIT Administration Tramadol HCl 50 mg 06/10/25 14:09 06/13/25 15:46 Tramadol Hcl (*Crx) 50 Mg Tablet PO 50 mg BID PRN Administration Pain Rated 4-10 Valsartan 40 mg 06/06/25 09:00 06/16/25 08:25 Valsartan 40 Mg Tablet PO 40 mg DAILY GURJIT Administration Vitamin D 25 mcg 06/06/25 09:00 06/16/25 08:25 Cholecalciferol (Vitamin D3) 25 Mcg (1,000 Units) Tablet PO 25 mcg DAILY GURJIT Administration <Monisha Diana, DIANE - Last Filed: 06/16/25 13:02> Radiology Results: ITS Impressions Clavicle X-Ray 06/05/25 19:14 IMPRESSION: Acute fracture within the humerus, without additional fracture deformity identified. Chest X-Ray 06/06/25 15:13 IMPRESSION: 1: Interstitial opacities in both lungs. Differential includes chronic interstitial changes, interstitial edema or interstitial pneumonia. 2. Possible small right-sided pleural effusion versus pleural scarring. 3. Mildly displaced and comminuted acute/subacute fracture of the left humeral neck. Correlate clinically. Shoulder X-Ray 06/15/25 16:15 IMPRESSION: Mildly comminuted two-part fracture at the surgical neck of the proximal left humerus with 1.5 cm anteromedial displacement and interval decrease in varus angulation. <Monisha Diana, DIANE - Last Filed: 06/16/25 13:02>
--- NOTE | 2025-06-16 13:40 | P.PNIM_ITS ---
Progress Note: A&P Assessment and Plan (1) Closed comminuted left humeral fracture: Qualifiers: Encounter type: subsequent encounter Humerus Location: shaft Fracture alignment: displaced Fracture healing: with routine healing Qualified Code(s): S42.352D - Displaced comminuted fracture of shaft of humerus, left arm, subsequent encounter for fracture with routine healing Code(s): S42.352A - Displaced comminuted fracture of shaft of humerus, left arm, initial encounter for closed fracture Status: Acute Assessment and Plan: * medications were reviewed not on blood thinners * evaluate for incidence of hypoglycemia * avoid any sedatives or anxiolytic * will evaluate for any arrhythmias * we evaluate for postural hypotension * imaging reviewed-Acute comminuted fracture of the left humeral neck with overlap of the fracture fragments * physical therapy for balance, gait and strength training after orthopedic evaluation * Orthopedic consult * NWB * Pain control, Ice * Continue with sling immobilization * Continue therapy * CC for rehab placement * Still pending placement (2) Urinary tract infection: Code(s): N39.0 - Urinary tract infection, site not specified Status: Acute Assessment and Plan: * UA: >100 WBC, 3+ leukocyte esterase, 2+ blood * UC obtained on 06/15 * No previous micro * started on Rocephin (3) Ground-level fall: Code(s): W18.30XA - Fall on same level, unspecified, initial encounter Status: Acute Assessment and Plan: * Closed comminuted left humeral fracture * Orthopedics recommends non operative management * Multimodal pain management (4) Insomnia disorder: Qualifiers: Insomnia type: unspecified Qualified Code(s): G47.00 - Insomnia, unspecified Code(s): G47.00 - Insomnia, unspecified Status: Acute Assessment and Plan: * Continue Melatonin at nighttime Plan DVT prophylaxis on sq Lovenox awaiting placement Subjective Date/time seen: 06/16/25 13:40 Interval history: 79-year-old female with a past medical history of aortic valve stenosis status post TAVR, heart block following valve replacement requiring dual chamber pacemaker, obstructive sleep apnea non adherent to CPAP therapy, hepatic steatosis, 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 06/16/2025 Patient sitting comfortably at bedside during examination. Pt progressing well today. Continuing to ambulate with PT/OT. Repeat shoulder XR shows well maintained alignment. Plan on continuing sling immobilization, PT/OT, and waiting on placement. No other concerns at this time. Review of Systems Review of Systems: 12 systems were reviewed with pertinent positives and negatives per HPI. Except as documented in the HPI, all other systems were reviewed and are negative. Patient has maturing cataracts for which she is supposed to have cataract surgery in the next couple of weeks. She has chronic stress urinary incontinence. And chronic urinary urgency. She denies any dysuria. She has not had any fevers or chills. Exam Narrative: Weight 79.1 kg Const: Other: Obese, appears uncomfortable lying in ER stretcher on her back HENMT: Other: Nasal cannula in place, head is normocephalic atraumatic, oropharynx is markedly crowded, mucous membranes are tacky, no oral pharyngeal erythema Eyes: Other: Pupils are equal and reactive, no scleral icterus, no conjunctival pallor Neck: Other: No JVD, no lymphadenopathy Resp: Other: Clear to auscultation bilaterally, no increased work of breathing Cardio: Other: Regular rate, paced rhythm, 2+ bilateral radial pedal pulses, slight murmur GI: Other: Obese, soft, nontender, midline surgical scar in lower abdomen Skin: Other: Generalized pallor, non jaundice Neuro: Other: Alert oriented x4, speech is clear, no facial asymmetry, no localizing neurologic deficits noted during the course of conversation Extrem: Other: Patient has pain to the left upper humerus with deformity on palpation, distal extremity is neurovascularly intact, 2-3 second cap refill in the fingers, left arm is in the immobilizer Psych: Other: Appropriate mood and affect, pleasant and cooperative, fair judgment and insight Objective Data Vital Signs Vital Signs: Vital Signs - 24 hr 06/15/25 20:00 06/15/25 21:23 06/15/25 21:41 Temperature 97.2 F L Pulse Rate 69 68 69 Respiratory Rate 14 14 Blood Pressure 132/52 L Pulse Oximetry 95 95 Oxygen Delivery Room Air Fraction of Inspired Oxygen 21 06/15/25 23:16 06/16/25 05:28 Temperature 97.0 F L Pulse Rate 69 Respiratory Rate 14 Blood Pressure 136/52 L Pulse Oximetry 95 96 Oxygen Delivery Room Air Fraction of Inspired Oxygen Intake/Output Intake/Output: Intake & Output 06/13/25 06/14/25 06/15/25 06/16/25 23:59 23:59 23:59 23:59 Intake Total 1820 780 580 340 Output Total 2600 700 Balance -780 780 580 -360 Meds/Results Medications: Active Medications Generic Name Dose Route Start Last Admin Trade Name Freq PRN Reason Stop Dose Admin Acetaminophen 650 mg 06/05/25 22:15 06/11/25 09:35 Acetaminophen 325 Mg Tablet PO 650 mg Q4H PRN Administration Mild Pain (1-3) or Fever Amlodipine Besylate 10 mg 06/12/25 09:00 06/16/25 08:25 Amlodipine Besylate 10 Mg Tablet PO 10 mg DAILY GURJIT Administration Aspirin 81 mg 06/06/25 09:00 06/16/25 08:25 Aspirin 81 Mg Enteric Tablet PO 81 mg DAILY GURJIT Administration Carvedilol 3.125 mg 06/12/25 09:00 06/16/25 08:24 Carvedilol 3.125 Mg Tablet PO 3.125 mg Q12HR GURJIT Administration Enoxaparin Sodium 40 mg 06/09/25 09:00 06/16/25 08:25 Enoxaparin 40 Mg/0.4 Ml Syringe SUB-Q 40 mg DAILY GURJIT Administration Ceftriaxone Sodium 2 gm/ 100 mls @ 200 mls/hr 06/15/25 14:00 06/15/25 13:42 Sodium Chloride IVPB Infused Q24H GURJIT Infusion Ketorolac Tromethamine 15 mg 06/15/25 14:02 06/15/25 21:22 Ketorolac 15 Mg/Ml Vial (*Bkc) IV PUSH 06/16/25 17:00 15 mg Q6H PRN Administration Pain Rated 4-6 Levothyroxine Sodium 75 mcg 06/06/25 08:00 06/16/25 05:42 Levothyroxine Sodium 75 Mcg Tablet PO 75 mcg DAILY@0630 GURJIT Administration Magnesium Hydroxide 30 ml 06/12/25 14:59 Magnesium Hydroxide Susp 30 Ml Udc PO QHS PRN Constipation Magnesium Oxide 400 mg 06/06/25 09:00 06/16/25 08:25 Magnesium Oxide 400 Mg Tablet PO 400 mg DAILY GURJIT Administration Melatonin 5 mg 06/05/25 23:25 06/15/25 21:23 Melatonin 5 Mg Tablet PO 5 mg HS GURJIT Administration Methocarbamol 500 mg 06/11/25 22:00 06/16/25 05:42 Methocarbamol 500 Mg Tablet PO 500 mg Q8HR GURJIT Administration Morphine Sulfate 2 mg 06/07/25 10:28 06/09/25 20:46 Morphine Sulfate (*Crx) 2 Mg/Ml Inj IV PUSH 2 mg Q4H PRN Administration Pain Rated 7-10 Ondansetron HCl 4 mg 06/05/25 22:15 Ondansetron Inj 4 Mg/2 Ml Vial IV PUSH Q4H PRN Nausea Pantoprazole Sodium 40 mg 06/06/25 09:00 06/16/25 08:25 Pantoprazole 40 Mg Tablet PO 40 mg BID GURJIT Administration Polyethylene Glycol 17 gm 06/08/25 12:43 06/12/25 11:52 Polyethylene Glycol 3350 17 Gm Powd.Pack PO 17 gm QAM PRN Administration Constipation Pravastatin Sodium 40 mg 06/06/25 21:00 06/15/25 21:23 Pravastatin Sodium 20 Mg Tablet PO 40 mg HS GURJIT Administration Tramadol HCl 50 mg 06/10/25 14:09 06/13/25 15:46 Tramadol Hcl (*Crx) 50 Mg Tablet PO 50 mg BID PRN Administration Pain Rated 4-10 Valsartan 40 mg 06/06/25 09:00 06/16/25 08:25 Valsartan 40 Mg Tablet PO 40 mg DAILY GURJIT Administration Vitamin D 25 mcg 06/06/25 09:00 06/16/25 08:25 Cholecalciferol (Vitamin D3) 25 Mcg (1,000 Units) Tablet PO 25 mcg DAILY GURJIT Administration Radiology Results: ITS Impressions Clavicle X-Ray 06/05/25 19:14 IMPRESSION: Acute fracture within the humerus, without additional fracture deformity identified. Chest X-Ray 06/06/25 15:13 IMPRESSION: 1: Interstitial opacities in both lungs. Differential includes chronic interstitial changes, interstitial edema or interstitial pneumonia. 2. Possible small right-sided pleural effusion versus pleural scarring. 3. Mildly displaced and comminuted acute/subacute fracture of the left humeral neck. Correlate clinically. Shoulder X-Ray 06/15/25 16:15 IMPRESSION: Mildly comminuted two-part fracture at the surgical neck of the proximal left humerus with 1.5 cm anteromedial displacement and interval decrease in varus angulation. Quality VTE Prophylaxis VTE prophylaxis: mechanical ordered (SCDs)
[2025-06-16] MEDS: cefTRIAXone 2 GM in SODIUM CHLORIDE 0.9% IV 100 ML 200 ML IVPB (13:43)
[2025-06-16 14:00] VITALS: BP 128/56; PULSE 69; RESP 15; TEMP 36.1; O2SAT 94
[2025-06-16 21:04] VITALS: BP 145/58; PULSE 70
[2025-06-16] MEDS: PRAVASTATIN SODIUM 20 MG TABLET 40 MG PO (21:08)
[2025-06-16 21:10] VITALS: PULSE 72
[2025-06-16] MEDS: MELATONIN 5 MG TABLET PO (21:10)
[2025-06-16 21:11] VITALS: BP 138/60; PULSE 72; RESP 16; TEMP 36.3; O2SAT 96
[2025-06-17 04:41] VITALS: BP 149/60; PULSE 76; RESP 13; TEMP 36.6; O2SAT 98
[2025-06-17] MEDS: LEVOTHYROXINE SODIUM 75 MCG TABLET PO (06:17)
[2025-06-17 08:51] VITALS: PULSE 78
[2025-06-17] MEDS: CHOLECALCIFEROL (VITAMIN D3) 25 MCG (1,000 UNITS) TABLET PO (08:53)
[2025-06-17] MEDS: VALSARTAN 40 MG TABLET PO (08:53)
[2025-06-17] MEDS: PANTOPRAZOLE 40 MG TABLET PO ×2 (08:54→16:31)
[2025-06-17] MEDS: ENOXAPARIN 40 MG/0.4 ML SYRINGE SUB-Q (08:54)
[2025-06-17] MEDS: MAGNESIUM OXIDE 400 MG TABLET PO (08:54)
[2025-06-17] MEDS: ASPIRIN 81 MG ENTERIC TABLET PO (08:54)
--- NOTE | 2025-06-17 12:18 | P.PNIM_ITS ---
Progress Note: A&P Assessment and Plan (1) Closed comminuted left humeral fracture: Qualifiers: Encounter type: subsequent encounter Humerus Location: shaft Fracture alignment: displaced Fracture healing: with routine healing Qualified Code(s): S42.352D - Displaced comminuted fracture of shaft of humerus, left arm, subsequent encounter for fracture with routine healing Code(s): S42.352A - Displaced comminuted fracture of shaft of humerus, left arm, initial encounter for closed fracture Status: Acute Assessment and Plan: * medications were reviewed not on blood thinners * evaluate for incidence of hypoglycemia * avoid any sedatives or anxiolytic * will evaluate for any arrhythmias * we evaluate for postural hypotension * imaging reviewed-Acute comminuted fracture of the left humeral neck with overlap of the fracture fragments * physical therapy for balance, gait and strength training after orthopedic evaluation * Orthopedic consult * NWB * Pain control, Ice * Continue with sling immobilization * Continue therapy * CC for rehab placement * Still pending placement (2) Urinary tract infection: Code(s): N39.0 - Urinary tract infection, site not specified Status: Acute Assessment and Plan: * UA: >100 WBC, 3+ leukocyte esterase, 2+ blood * UC obtained on 06/15 - shows growth of gram (-) bacilli * No previous micro * started on Rocephin - will switch to Oral coverage closer to discharge (3) Ground-level fall: Code(s): W18.30XA - Fall on same level, unspecified, initial encounter Status: Acute Assessment and Plan: * Closed comminuted left humeral fracture * Orthopedics recommends non operative management * Multimodal pain management (4) Insomnia disorder: Qualifiers: Insomnia type: unspecified Qualified Code(s): G47.00 - Insomnia, unspecified Code(s): G47.00 - Insomnia, unspecified Status: Acute Assessment and Plan: * Continue Melatonin at nighttime Plan DVT prophylaxis on sq Lovenox awaiting placement Subjective Date/time seen: 06/17/25 12:18 Interval history: 79-year-old female with a past medical history of aortic valve stenosis status post TAVR, heart block following valve replacement requiring dual chamber pacemaker, obstructive sleep apnea non adherent to CPAP therapy, hepatic steatosis, 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 06/17/2025 Patient sitting comfortably at bedside during examination. No overnight events, pending placement. Review of Systems Review of Systems: 12 systems were reviewed with pertinent positives and negatives per HPI. Except as documented in the HPI, all other systems were reviewed and are negative. Patient has maturing cataracts for which she is supposed to have cataract surgery in the next couple of weeks. She has chronic stress urinary incontinence. And chronic urinary urgency. She denies any dysuria. She has not had any fevers or chills. Exam Narrative: Weight 79.1 kg Const: Other: Obese, appears uncomfortable lying in ER stretcher on her back HENMT: Other: Nasal cannula in place, head is normocephalic atraumatic, oropharynx is markedly crowded, mucous membranes are tacky, no oral pharyngeal erythema Eyes: Other: Pupils are equal and reactive, no scleral icterus, no conjunctival pallor Neck: Other: No JVD, no lymphadenopathy Resp: Other: Clear to auscultation bilaterally, no increased work of breathing Cardio: Other: Regular rate, paced rhythm, 2+ bilateral radial pedal pulses, slight murmur GI: Other: Obese, soft, nontender, midline surgical scar in lower abdomen Skin: Other: Generalized pallor, non jaundice Neuro: Other: Alert oriented x4, speech is clear, no facial asymmetry, no localizing neurologic deficits noted during the course of conversation Extrem: Other: Patient has pain to the left upper humerus with deformity on palpation, distal extremity is neurovascularly intact, 2-3 second cap refill in the fingers, left arm is in the immobilizer Psych: Other: Appropriate mood and affect, pleasant and cooperative, fair judgment and insight Objective Data Vital Signs Vital Signs: Vital Signs - 24 hr 06/16/25 14:00 06/16/25 20:45 06/16/25 21:04 Temperature 97 F L Pulse Rate 69 70 Respiratory Rate 15 Blood Pressure 128/56 L 145/58 H Pulse Oximetry 94 Oxygen Delivery Room Air 06/16/25 21:10 06/16/25 21:11 06/17/25 04:41 Temperature 97.4 F L 97.8 F Pulse Rate 72 72 76 Respiratory Rate 16 13 Blood Pressure 138/60 149/60 H Pulse Oximetry 96 98 Oxygen Delivery 06/17/25 08:51 Temperature Pulse Rate 78 Respiratory Rate Blood Pressure Pulse Oximetry Oxygen Delivery Intake/Output Intake/Output: Intake & Output 06/14/25 06/15/25 06/16/25 06/17/25 23:59 23:59 23:59 23:59 Intake Total 312 267 8157 740 Output Total 700 Balance 780 580 420 740 Meds/Results Medications: Active Medications Generic Name Dose Route Start Last Admin Trade Name Freq PRN Reason Stop Dose Admin Acetaminophen 650 mg 06/05/25 22:15 06/11/25 09:35 Acetaminophen 325 Mg Tablet PO 650 mg Q4H PRN Administration Mild Pain (1-3) or Fever Amlodipine Besylate 10 mg 06/12/25 09:00 06/17/25 08:54 Amlodipine Besylate 10 Mg Tablet PO 10 mg DAILY GURJIT Administration Aspirin 81 mg 06/06/25 09:00 06/17/25 08:54 Aspirin 81 Mg Enteric Tablet PO 81 mg DAILY GURJIT Administration Carvedilol 3.125 mg 06/12/25 09:00 06/17/25 08:51 Carvedilol 3.125 Mg Tablet PO 3.125 mg Q12HR GURJIT Administration Enoxaparin Sodium 40 mg 06/09/25 09:00 06/17/25 08:54 Enoxaparin 40 Mg/0.4 Ml Syringe SUB-Q 40 mg DAILY GURJIT Administration Ceftriaxone Sodium 2 gm/ 100 mls @ 200 mls/hr 06/15/25 14:00 06/16/25 13:43 Sodium Chloride IVPB 200 mls/hr Q24H GURJIT Administration Levothyroxine Sodium 75 mcg 06/06/25 08:00 06/17/25 06:17 Levothyroxine Sodium 75 Mcg Tablet PO 75 mcg DAILY@0630 GURJTI Administration Magnesium Hydroxide 30 ml 06/12/25 14:59 Magnesium Hydroxide Susp 30 Ml Udc PO QHS PRN Constipation Magnesium Oxide 400 mg 06/06/25 09:00 06/17/25 08:54 Magnesium Oxide 400 Mg Tablet PO 400 mg DAILY GURJIT Administration Melatonin 5 mg 06/05/25 23:25 06/16/25 21:10 Melatonin 5 Mg Tablet PO 5 mg HS GURJIT Administration Methocarbamol 500 mg 06/11/25 22:00 06/17/25 06:17 Methocarbamol 500 Mg Tablet PO 500 mg Q8HR GURJIT Administration Ondansetron HCl 4 mg 06/05/25 22:15 Ondansetron Inj 4 Mg/2 Ml Vial IV PUSH Q4H PRN Nausea Pantoprazole Sodium 40 mg 06/06/25 09:00 06/17/25 08:54 Pantoprazole 40 Mg Tablet PO 40 mg BID GURJIT Administration Polyethylene Glycol 17 gm 06/08/25 12:43 06/12/25 11:52 Polyethylene Glycol 3350 17 Gm Powd.Pack PO 17 gm QAM PRN Administration Constipation Pravastatin Sodium 40 mg 06/06/25 21:00 06/16/25 21:08 Pravastatin Sodium 20 Mg Tablet PO 40 mg HS GURJIT Administration Tramadol HCl 50 mg 06/10/25 14:09 06/13/25 15:46 Tramadol Hcl (*Crx) 50 Mg Tablet PO 50 mg BID PRN Administration Pain Rated 4-10 Valsartan 40 mg 06/06/25 09:00 06/17/25 08:53 Valsartan 40 Mg Tablet PO 40 mg DAILY GURJIT Administration Vitamin D 25 mcg 06/06/25 09:00 06/17/25 08:53 Cholecalciferol (Vitamin D3) 25 Mcg (1,000 Units) Tablet PO 25 mcg DAILY GURJIT Administration Radiology Results: ITS Impressions Clavicle X-Ray 06/05/25 19:14 IMPRESSION: Acute fracture within the humerus, without additional fracture deformity identified. Chest X-Ray 06/06/25 15:13 IMPRESSION: 1: Interstitial opacities in both lungs. Differential includes chronic interstitial changes, interstitial edema or interstitial pneumonia. 2. Possible small right-sided pleural effusion versus pleural scarring. 3. Mildly displaced and comminuted acute/subacute fracture of the left humeral neck. Correlate clinically. Shoulder X-Ray 06/15/25 16:15 IMPRESSION: Mildly comminuted two-part fracture at the surgical neck of the proximal left humerus with 1.5 cm anteromedial displacement and interval decrease in varus angulation. Quality VTE Prophylaxis VTE prophylaxis: mechanical ordered (SCDs)
[2025-06-17] MEDS: cefTRIAXone 2 GM in SODIUM CHLORIDE 0.9% IV 100 ML 200 ML IVPB (13:12)
[2025-06-17 14:00] VITALS: BP 123/59; PULSE 70; RESP 16; TEMP 36.9; O2SAT 96
[2025-06-17 19:58] VITALS: BP 152/51; PULSE 72; RESP 18; TEMP 36.1; O2SAT 95
[2025-06-17] MEDS: MELATONIN 5 MG TABLET PO (20:26)
[2025-06-17] MEDS: PRAVASTATIN SODIUM 20 MG TABLET 40 MG PO (20:27)
[2025-06-18 04:24] VITALS: BP 155/66; PULSE 71; RESP 18; TEMP 36.6; O2SAT 100
[2025-06-18] MEDS: LEVOTHYROXINE SODIUM 75 MCG TABLET PO (05:23)
[2025-06-18 08:47] LABS: Hematocrit 31.6 % (37.0-47.0); Hemoglobin 10.6 g/dL (12.0-15.0); Immature Granulocyte Percent A 0.7 % (0-0.5); Lymphocytes Absolute Auto 1.52 K/mm3 (0.9-3.2); Mean Corpuscular HGB Conc 33.5 g/dl (32-36); Mean Corpuscular Hemoglobin 30.8 pg (26-34); Mean Corpuscular Volume 91.9 fl (80-100); Nucleated Red Blood Cells Absolute Auto 0.000 K/mm3 (0.0-0.012); Nucleated Red Blood Cells Perc 0.0 % (0.0-0.2); Platelet Count Result 262 k/mm3 (150-375); Red Blood Count 3.44 M/mm3 (4.2-5.4); White Blood Count 9.0 K/mm3 (4.5-10.0)
[2025-06-18 09:17] LABS: Albumin Level 3.7 g/dL (3.5-5.1); Blood Urea Nitrogen 21 mg/dL (7-17); Carbon Dioxide 29 mmol/L (22-30); Estimated Glomerular Filt Rate 55
[2025-06-18 09:21] VITALS: PULSE 71
[2025-06-18] MEDS: ASPIRIN 81 MG ENTERIC TABLET PO (09:21)
[2025-06-18] MEDS: PANTOPRAZOLE 40 MG TABLET PO (09:21)
[2025-06-18] MEDS: ENOXAPARIN 40 MG/0.4 ML SYRINGE SUB-Q (09:21)
[2025-06-18] MEDS: CHOLECALCIFEROL (VITAMIN D3) 25 MCG (1,000 UNITS) TABLET PO (09:21)
[2025-06-18] MEDS: VALSARTAN 40 MG TABLET PO (09:21)
[2025-06-18] MEDS: MAGNESIUM OXIDE 400 MG TABLET PO (09:21)
[2025-06-18 09:30] LABS: Alanine Aminotransferase 23 U/L (6-35); Alkaline Phosphatase 81 U/L (38-126); Anion Gap 5 mmol/L (4-12); Aspartate Amino Transferase 27 U/L (14-36); Bilirubin,Total 0.3 mg/dL (0.2-1.3); Calcium 9.1 mg/dL (8.4-10.2); Chloride 101 mmol/L (98-107); Glucose 107 mg/dL (65-110); Potassium 4.4 mmol/L (3.4-5.0); Sodium 135 mmol/L (137-145); Total Protein 6.8 g/dL (6.3-8.2)
--- NOTE | 2025-06-18 12:21 | PM.DS ---
DS: Admitting Diagnosis Discharge Date 06/18/2025 Admitting Diagnosis Closed comminuted left humeral fracture DS: Discharge Diagnosis Discharge Diagnosis (1) Closed comminuted left humeral fracture: Qualifiers: Encounter type: subsequent encounter Fracture alignment: displaced Fracture healing: with routine healing Humerus Location: shaft Qualified Code(s): S42.352D - Displaced comminuted fracture of shaft of humerus, left arm, subsequent encounter for fracture with routine healing Code(s): S42.352A - Displaced comminuted fracture of shaft of humerus, left arm, initial encounter for closed fracture Status: Acute (2) Urinary tract infection: Code(s): N39.0 - Urinary tract infection, site not specified Status: Acute (3) Ground-level fall: Code(s): W18.30XA - Fall on same level, unspecified, initial encounter Status: Acute (4) Insomnia disorder: Qualifiers: Insomnia type: unspecified Qualified Code(s): G47.00 - Insomnia, unspecified Code(s): G47.00 - Insomnia, unspecified Status: Acute DS: Summary Hospital Course Reason for hospitalization: Fall with shoulder pain Hospital Course: 79-year-old female with a past medical history of aortic valve stenosis status post TAVR, heart block following valve replacement requiring dual chamber pacemaker, obstructive sleep apnea non adherent to CPAP therapy, hepatic steatosis, 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 The patient's daughter assists in providing history and provided access to the patient's MyChart for review of external history. 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 The patient and her daughter had just gotten back home after having pedicures. The patient steven to get into the restroom and laid her cane across the chair by her bathroom door. When she came back out of the bathroom she got her legs tangled in the cane and tripped. She landed on her left side and had immediate severe pain in her shoulder. Pain was greater than a 10/10 in intensity. Her daughter could see obvious deformity of the patient's shoulder. EMS was called immediately. Patient received fentanyl in route to the hospital. The patient denies hitting her head, loss of consciousness or visual changes. She denies any nausea or vomiting. In the ER pain was intractable but did improve somewhat after shoulder immobilizer was placed. The patient did develop hypoxia after narcotic administration but does have a history of obstructive sleep apnea for which she is noncompliant with CPAP therapy. She denies any preceding illness. She denies any history of peripheral neuropathy. Patient was seen by orthopedics for closed comminuted L humeral fracture, recommend non-operative treatment, continuing PT/OT, NWB, pendulum exercises and shelter placement if appropriate. Care coordination was consulted and PT/OT recommended further rehab - referrals were then sent for further shelter rehabilitation. On 06/15, she started endorsing some burning with urination. UA was obtained which was concerning for UTI. She was subsequently placed on IV Rocephin. Urine culture was obtained and sent for sensitivities. Initial result showed growth of Gram (-) bacilli. She was eventually accepted at [facility]. Given patients hemodynamic stability, lack of fever/leukocytosis, and approval at [facility], she can be safely discharged at this time and we will follow up with culture sensitivities. She will be placed on Augmentin PO for an additional 5 days worth of doses. Plan for discharge at this time. Status at Discharge Functional status at discharge: uses cane/walker Overall status at discharge: patient is progressing back to baseline Time Spent with Patient Time attestation: Total time spent providing and/or coordinating discharge services: 36 Exam Narrative: Weight 79.1 kg Const: Other: Obese, appears comfortable sitting bedside HENMT: Other: head is normocephalic atraumatic, mucous membranes are moist, no oral pharyngeal erythema Eyes: Other: Pupils are equal and reactive, no scleral icterus, no conjunctival pallor Neck: Other: No JVD, no lymphadenopathy Resp: Other: Clear to auscultation bilaterally, no increased work of breathing Cardio: Other: Regular rate, paced rhythm, 2+ bilateral radial pedal pulses, slight murmur GI: Other: Obese, soft, nontender, midline surgical scar in lower abdomen Skin: Other: Generalized pallor, non jaundice Neuro: Other: Alert oriented x4, speech is clear, no facial asymmetry, no localizing neurologic deficits noted during the course of conversation Extrem: Other: Patient has pain to the left upper humerus with deformity on palpation, distal extremity is neurovascularly intact, 2-3 second cap refill in the fingers, left arm is in a sling Psych: Other: Appropriate mood and affect, pleasant and cooperative, fair judgment and insight DS: Data Data Completed and Pending Labs on day of discharge: Labs from last 24 hours 06/18/25 06/18/25 06/18/25 11:39 08:40 07:26 WBC 9.0 RBC 3.44 L Hgb 10.6 L Hct 31.6 L MCV 91.9 MCH 30.8 MCHC 33.5 RDW 12.9 Plt Count 262 MPV 9.3 Immature Gran % (Auto) 0.7 H Neut % (Auto) 69.5 Lymph % (Auto) 16.8 L [place] % (Auto) 7.2 Eos % (Auto) 5.1 H Baso % (Auto) 0.7 Lymph # (Auto) 1.52 [place] # (Auto) 0.7 H Eos # (Auto) 0.5 H Baso # (Auto) 0.1 Abs Immat Gran (auto) 0.06 H Absolute Neuts (auto) 6.3 Absolute Nucleated RBC 0.000 Nucleated RBC % 0.0 Sodium 135 L Potassium 4.4 Chloride 101 Carbon Dioxide 29 Anion Gap 5 BUN 21 H D Creatinine 0.98 Estim Creat Clear Calc Not Reportable Estimated GFR 55 L Glucose 107 POC Capillary Glucose 94 94 Calcium 9.1 Total Bilirubin 0.3 AST 27 ALT 23 Alkaline Phosphatase 81 Total Protein 6.8 Albumin 3.7 Preliminary micro results at discharge 06/15/25 11:55 - Preliminary Urine Clean Catch Gram negative bacilli isolated Discharge Plan Discharge Attending physician on discharge: Leonel Garcia Consulting providers: Evan Sosa; Devyn Polanco Discharging Clinician: Devyn Polanco Anticipated Discharge Date/Time: 06/18/25 13:37 Patient Disposition: SNF Activity: may shower, no driving and follow weight bearing status Diet: heart healthy Wound Care Instructions: follow printed instructions Discharge Instructions: Orthopedic Recommendations Dr. Evan Sosa [phone] Non-weight bearing, left upper extremity. Pain control. Ice. Sling. Okay to remove sling for gentle pendulum exercises for hygeine purposes only. Supervisor Looping strength/Elbow ROM Discharge disposition: [facility] Take medications as prescribed. You will be prescribed 5 days worth of Augmentin to be taken twice daily. Monitor blood pressures Take caution while standing, rising, or moving Change positions slowly taking a break between each position change If you standing feel dizzy sit back down and take a break Encouraged to continue with yearly vaccinations Return to the emergency department if he developed sudden shortness of breath, chest pain, nausea, vomiting, upset stomach or intractable diarrhea Return to the emergency department if you develop fever greater than 101.5 Follow-up with the primary care physician within 1-2 weeks Thank you for [facility] for your healthcare needs Patient Language: [place] Stand Alone Forms: General Discharge Information Follow-up/Referrals: Jyothi,La Evangelista NP [Primary Care Provider, Unknown] Evan Sosa MD [Physician, Orthopedics] - 07/13/25 10:00 am Discharge Medications: New amoxicillin-pot clavulanate 875-125 mg tablet 1 tablet PO Q12H 5 Days Qty: 10 0RF Continued pravastatin 40 mg tablet 40 mg PO .nightly levothyroxine 75 mcg tablet 75 mcg PO DAILY valsartan 40 mg tablet 40 mg PO DAILY Patient Comments: Pt unsure of dose. Will contact daughter in the am acetaminophen 325 mg tablet 325 mg PO Q6H PRN (Reason: fever or pain) aspirin 81 mg tablet,delayed release (DR/EC) 81 mg PO DAILY carvedilol 3.125 mg tablet 3.125 mg PO Q12H Florastor 250 mg capsule 250 mg PO BID Patient Comments: Pt not sure about the med melatonin 1 mg tablet 1 mg PO HS Patient Comments: pt does not remember the last dose cholecalciferol (vitamin D3) 1,000 unit capsule 1,000 unit PO DAILY omeprazole 40 mg capsule,delayed release(DR/EC) 40 mg PO BID magnesium oxide 500 mg tablet 500 mg PO DAILY allopurinol 100 mg tablet 100 mg PO DAILY Patient Comments: Per daughter, pt takes 100mg amlodipine 10 mg tablet 10 mg PO DAILY Qty: 90 3RF Discontinued valsartan 80 mg tablet See Rx Instructions .ROUTE .COMPLEX Qty: 90 3RF Dose Instruction: TAKE 1 TABLET BY MOUTH EVERY DAY Patient Comments: Pt unsure of dose. Will call daughter in the morning Rx Instructions: TAKE 1 TABLET BY MOUTH EVERY DAY allopurinol 300 mg tablet 300 mg PO DAILY Qty: 90 2RF Date of admission: 06/07/25 14:56 Primary Care Provider: Jyothi,La Evangelista Admitting Provider: Antonia Helton Attending physician on admission: Antonia Helton Condition: Stable Quality VTE Prophylaxis VTE prophylaxis: mechanical ordered (SCDs)
[2025-06-18 14:00] VITALS: BP 132/53; PULSE 71; RESP 16; TEMP 36.6; O2SAT 94
== END 2025-06-18 18:55 | DRG 563 ==
LOC: ANHED 20:11 → ANH3MEDSUR 22:52
PROVIDERS: Internal Medicine; Physician Assistant; Admitting Provider Internal Medicine; Emergency Provider Student in an Organized Health Care Education/Training Program; PCP Nurse Practitioner Family; Visit Provider General Practice
DX: S42.212A Unspecified displaced fracture of surgical neck of left humerus, initial encounter for closed fracture (principal); N39.0 Urinary tract infection, site not specified; W01.198A Fall on same level from slipping, tripping and stumbling with subsequent striking against other object, initial encounter; G47.00 Insomnia, unspecified; G47.33 Obstructive sleep apnea (adult) (pediatric); F44.4 Conversion disorder with motor symptom or deficit; E03.9 Hypothyroidism, unspecified; E78.1 Pure hyperglyceridemia; I10 Essential (primary) hypertension; M19.90 Unspecified osteoarthritis, unspecified site; F43.10 Post-traumatic stress disorder, unspecified; E66.9 Obesity, unspecified; B99.8 Other infectious disease; Z77.22 Contact with and (suspected) exposure to environmental tobacco smoke (acute) (chronic); R09.02 Hypoxemia; Q16.1 Congenital absence, atresia and stricture of auditory canal (external); Z79.82 Long term (current) use of aspirin; Z95.0 Presence of cardiac pacemaker; Z95.2 Presence of prosthetic heart valve; Z97.4 Presence of external hearing-aid; Z91.199 Patient's noncompliance with other medical treatment and regimen due to unspecified reason; Z87.19 Personal history of other diseases of the digestive system; Z91.81 History of falling
CPT/HCPCS: 23600; 36415; 71045; 73000; 73030; 80053; 81001; 82948; 83735; 85025; 85610; 85730; 86850; 86900; 86901; 87086; 93005; 96365; 96375; 96376; 97110; 97116; 97162; 97166; 97530; 97535; 99285; A4565; A9270; G0378; J0696; J1171; J1650; J1741; J1885; J2270; J2405

== ENCOUNTER 2025-09-01 17:24 | Emergency (ER) | payer MEDICARE, SELFPAY ==
--- NOTE | 2025-09-01 17:27 | ECG_ITS ---
Test Date: 2025-09-01 17:49:01 Measurements Intervals [place] Rate: 75 P: 70 FL: 240 QRS: -27 QRSD: 113 T: 54 QT: 387 QTc: 435 Interpretive Statements ELECTRONIC ATRIAL PACEMAKER BORDERLINE LEFT AXIS DEVIATION [QRS AXIS < -20] INCOMPLETE RIGHT BUNDLE BRANCH BLOCK [90+ ms QRS DURATION, TERMINAL R IN V1/V2, 40+ ms S IN I/aVL/V4/V5/V6] CONSIDER PREVIOUS INFERIOR INFARCTION ABNORMAL RHYTHM ECG Compared to ECG 06/05/2025 22:00:07 NO DIFFERENCE Electronically Signed On 09-02-2025 13:01:44 [employer] by Conner Zuniga M.D.
[2025-09-01 17:44] VITALS: BP 140/76; PULSE 83; RESP 20; TEMP 36.5; O2SAT 97
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
== END 2025-09-01 18:24 | disposition short-term general hospital (02) ==
PROVIDERS: PCP Nurse Practitioner Family
DX: R42 Dizziness and giddiness (principal); I10 Essential (primary) hypertension; E78.00 Pure hypercholesterolemia, unspecified; E03.9 Hypothyroidism, unspecified; M10.9 Gout, unspecified; M19.90 Unspecified osteoarthritis, unspecified site; R73.01 Impaired fasting glucose; H26.9 Unspecified cataract; Z95.0 Presence of cardiac pacemaker; Z79.82 Long term (current) use of aspirin; Z95.2 Presence of prosthetic heart valve
CPT/HCPCS: 93005; 99213; G0463

== ENCOUNTER 2025-09-01 18:47 | Emergency (ER) | payer MEDICARE, SELFPAY ==
--- NOTE | ~2025-09-01 | CT_ITS ---
CT HEAD NON-CONTRAST Clinical History: altered mental status Comparison: MRI brain 08/11/2019 Technique: Unenhanced axial images skull base to vertex Coronal, sagittal reformats CT images acquired with automatic exposure control for dose reduction DLP: 681 mGy-cm Findings: Chronic white matter microvascular ischemic changes. Sulci, ventricles: Unremarkable. No intracerebral hemorrhage. No evidence acute territorial infarct. No mass effect, midline shift. Bony calvarium intact. Visualized paranasal sinuses: Clear. Mastoid air cells: Bilateral mastoidectomy. Bilateral fluid. IMPRESSION: 1. No acute intracranial findings. Reviewed, dictated and finalized at location [facility]
[2025-09-01 18:58] VITALS: BP 158/60; PULSE 79; RESP 20; TEMP 36.7; O2SAT 97
[2025-09-01 22:48] VITALS: BP 181/80; PULSE 71; PULSE 74; RESP 15; RESP 17; TEMP 36.9; O2SAT 98; O2SAT 99
[2025-09-01 23:16] VITALS: BP 157/69; PULSE 77; RESP 15; O2SAT 96
[2025-09-01 23:31] VITALS: BP 143/63; PULSE 77; RESP 14; O2SAT 97
[2025-09-01 23:46] VITALS: BP 153/67; PULSE 77; RESP 18; O2SAT 98
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
[2025-09-02] VITALS (9 sets, daily range): BP systolic 141–162; BP diastolic 65–110; PULSE 71–79; RESP 14–25; O2SAT 95–98
[2025-09-02 00:17] LABS: Hematocrit 37.2 % (37.0-47.0); Hemoglobin 12.8 g/dL (12.0-15.0); Immature Granulocyte Percent A 0.3 % (0-0.5); Lymphocytes Absolute Auto 2.31 K/mm3 (0.9-3.2); Mean Corpuscular HGB Conc 34.4 g/dl (32-36); Mean Corpuscular Hemoglobin 30.8 pg (26-34); Mean Corpuscular Volume 89.4 fl (80-100); Nucleated Red Blood Cells Absolute Auto 0.000 K/mm3 (0.0-0.012); Nucleated Red Blood Cells Perc 0.0 % (0.0-0.2); Platelet Count Result 262 k/mm3 (150-375); Red Blood Count 4.16 M/mm3 (4.2-5.4); White Blood Count 9.5 K/mm3 (4.5-10.0)
[2025-09-02 00:25] LABS: INR 0.9; Prothrombin Time 11.9 Seconds (11.1-14.7)
[2025-09-02] MEDS: SODIUM CHLORIDE 0.9% IV 1,000 ML 500 ML IV CONT (00:26)
[2025-09-02 00:27] LABS: Alanine Aminotransferase 19 U/L (6-35); Albumin Level 4.4 g/dL (3.5-5.1); Alkaline Phosphatase 94 U/L (38-126); Anion Gap 7 mmol/L (4-12); Aspartate Amino Transferase 32 U/L (14-36); Bilirubin,Total 0.6 mg/dL (0.2-1.3); Blood Urea Nitrogen 20 mg/dL (7-17); Calcium 9.1 mg/dL (8.4-10.2); Carbon Dioxide 26 mmol/L (22-30); Chloride 101 mmol/L (98-107); Estimated CRCL calculation 45 ml/min; Estimated Glomerular Filt Rate > 60; Glucose 104 mg/dL (65-110); Potassium 4.3 mmol/L (3.4-5.0); Sodium 134 mmol/L (137-145); Total Protein 7.7 g/dL (6.3-8.2)
[2025-09-02 00:34] LABS: Partial Thromboplastin Time 20.0 Seconds (22.3-36.8)
--- NOTE | 2025-09-02 01:00 | ECG_ITS ---
Test Date: 2025-09-02 01:10:03 Measurements Intervals Collins Rate: 71 P: 21 MO: 261 QRS: -31 QRSD: 119 T: 33 QT: 415 QTc: 454 Interpretive Statements ELECTRONIC ATRIAL PACEMAKER LEFT AXIS DEVIATION [QRS AXIS < -30] LOW QRS VOLTAGE IN PRECORDIAL LEADS [QRS DEFLECTION < 1.0 mV IN CHEST LEADS] INCOMPLETE RIGHT BUNDLE BRANCH BLOCK [90+ ms QRS DURATION, TERMINAL R IN V1/V2, 40+ ms S IN I/aVL/V4/V5/V6] CONSIDER PREVIOUS INFERIOR INFARCTION POOR R-WAVE PROGRESSION ABNORMAL ECG Compared to ECG 09/01/2025 17:49:01 SLIGHTLY DIFFERENT PRECORDIAL LEAD POSITION OTHERWISE NO SIGNIFICANT JOINT Electronically Signed On 09-02-2025 13:13:09 DICTATING MACHINE MECHANIC by Conner Zuniga M.D.
[2025-09-02 01:02] LABS: Magnesium 2.2 mg/dL (1.6-2.3); Thyroid Stimulating Hormone 2.390 uIU/mL (0.465-4.680)
[2025-09-02] MEDS: MECLIZINE HCL 25 MG TABLET PO (01:21)
[2025-09-02 02:34] LABS: Add Urine Microscopic? NO; Appearance Urine Clear (Clear); Glucose Urine UA Negative (Negative); Leukocyte Esterase Ur Negative LEU/UL (Negative); Nitrate Urine Negative (Negative); Specific Grav Ur 1.007 (1.001-1.035)
[2025-09-02] MEDS: diazePAM (*CRX) 5 MG TABLET PO (03:01)
== END 2025-09-02 03:18 | disposition home or self-care (01) ==
PROVIDERS: Emergency Provider Registered Nurse; PCP Nurse Practitioner Family
DX: H81.10 Benign paroxysmal vertigo, unspecified ear (principal); I65.29 Occlusion and stenosis of unspecified carotid artery; I35.0 Nonrheumatic aortic (valve) stenosis; I10 Essential (primary) hypertension; E03.9 Hypothyroidism, unspecified; E78.00 Pure hypercholesterolemia, unspecified; E78.1 Pure hyperglyceridemia; M19.90 Unspecified osteoarthritis, unspecified site; M10.9 Gout, unspecified; G25.9 Extrapyramidal and movement disorder, unspecified; F43.10 Post-traumatic stress disorder, unspecified; Z95.0 Presence of cardiac pacemaker; Z95.2 Presence of prosthetic heart valve; Z90.710 Acquired absence of both cervix and uterus; Z79.82 Long term (current) use of aspirin; Z79.899 Other long term (current) drug therapy; Z77.22 Contact with and (suspected) exposure to environmental tobacco smoke (acute) (chronic)
CPT/HCPCS: 36415; 70450; 80053; 81003; 83735; 84443; 85025; 85610; 85730; 93005; 96360; 99284; A9270; J7030